=== PATIENT | female | born 1940 | race Caucasian/White ===

== ENCOUNTER 2017-10-10 00:26 | Inpatient (IN) | payer MEDICARE, OTHER, MEDICAID ==
[2017-10-10] MEDS: SODIUM CHLORIDE 0.9% 1L BAG IV* (00:49)
[2017-10-10 01:01] LABS: AADO2 Arterial 285.4 mmHg (7.0-24.0); Arterial Base Excess -1.7 mmol/L (-3.0-3); Arterial Blood Gas Oxygen Sat 97.9 mmHG (95.0-100.0); Arterial COHb 0.4 % (0.0-3.0); Arterial Fraction of Oxyhgb 97.1 % (93.0-99.0); Arterial HCO3 22.9 mmol/L (22.0-26.0); Arterial MetHb 0.4 % (0.0-1.5); Arterial Total Hemglobin 12.7 g/dl (12.0-18.0); Arterial pCO2 38.3 mmhg (35-45); MODE VENT - AC; Site Right Brachial
[2017-10-10 02:04] LABS: ADD MAN DIFF? NO
[2017-10-10 02:13] LABS: ABNORMAL IP MESSAGE 1; BASOPHIL # 0.1 10^3/ul (0.0-0.1); BASOPHILS % 0.6 % (0.0-2.0); EOSINOPHILS % 0.1 % (0.0-7.0); HEMATOCRIT 38.8 % (37.0-47.0); LYMPHOCYTES # 0.8 10^3/ul (0.8-2.9); MEAN CORPUSCULAR HEMOGLOBIN 30.4 pg (29.0-33.0); MEAN CORPUSCULAR HGB CONC 30.9 g/dl (32.0-37.0); MEAN CORPUSCULAR VOLUME 98.2 fl (82.0-101.0); MONOCYTE # 1.8 10^3/ul (0.3-0.9); MONOCYTES % 8.8 % (0.0-11.0); NEUTROPHIL # 17.1 10^3/ul (1.6-7.5); NEUTROPHILS % 85.5 % (39.0-77.0); PLATELET COUNT 232 10^3/UL (140-415); RED BLOOD COUNT 3.95 10^6/ul (4.20-5.40)
[2017-10-10] MEDS: CEFEPIME 2GM/50 ML (PMX) 50 ML IVPB (02:17)
[2017-10-10] MEDS: ACETAMINOPHEN 650 MG SUPP PR (02:17)
[2017-10-10 02:22] LABS: POSITIVE DIFF @See below
[2017-10-10 02:33] LABS: INR 1.17; PROTIME 15.1 Sec (11.9-14.9); PT RATIO 1.2
[2017-10-10 02:34] LABS: PARTIAL THROMBOPLASTIN TIME 34.5 Sec (25.0-35.0)
[2017-10-10 02:38] LABS: ALANINE AMINOTRANSFERASE 25 IU/L (13-69); ALBUMIN 3.7 g/dl (3.3-4.9); ALKALINE PHOSPHATASE 127 IU/L (42-121); ANION GAP 20 (8-16); ASPARTATE AMINO TRANSFERASE 21 IU/L (15-46); BILIRUBIN,INDIRECT 0.7 mg/dl (0-1.1); BILIRUBIN,TOTAL 0.7 mg/dl (0.2-1.3); BLOOD UREA NITROGEN 34 mg/dl (7-20); CALCIUM 9.4 mg/dl (8.4-10.2); CARBON DIOXIDE 23 mmol/L (21-31); CHLORIDE 99 mmol/L (97-110); CREATININE 2.52 mg/dl (0.44-1.00); GLUCOSE 243 mg/dl (70-220); POTASSIUM 3.3 mmol/L (3.5-5.1); SODIUM 139 mmol/L (135-144); TOTAL PROTEIN 7.4 g/dl (6.1-8.1)
[2017-10-10 02:49] LABS: TROPONIN-I 0.107 ng/ml (0.00-0.12)
[2017-10-10] MEDS: VANCOMYCIN 1 GM (PMX) 250 ML IVPB (03:13)
[2017-10-10 03:15] LABS: ADD UMIC YES; UR ASCORBIC ACID NEGATIVE (NEGATIVE); UR BACTERIA MANY /HPF (NONE SEEN); UR BILIRUBIN (Dip) 1+ mg/dL (NEGATIVE); UR BLOOD (Dip) NEGATIVE (NEGATIVE); UR CLARITY TURBID (CLEAR); UR COLOR AMBER (YELLOW); UR GLUCOSE (Dip) NEGATIVE (NEGATIVE); UR KETONES (Dip) NEGATIVE (NEGATIVE); UR LEUKOCYTE ESTERASE (Dip) 2+ Leu/ul (NEGATIVE); UR NITRITE (Dip) NEGATIVE (NEGATIVE); UR NONSQUAMOUS EPITHELIAL CELL 2 /HPF (NONE SEEN); UR RBC 0 /HPF (0-5); UR SPECIFIC GRAVITY (Dip) 1.036 (1.003-1.030); UR TOTAL PROTEIN (Dip) 2+ mg/dl (NEGATIVE); UR UROBILINOGEN (Dip) NEGATIVE (NEGATIVE); UR WBC > 182 /HPF (0-5)
[2017-10-10 03:28] LABS: LACTIC ACID 1.3 mmol/L (0.5-2.0)
[2017-10-10] MEDS ORDERED: ONDANSETRON 4 MG INJ IV (03:30)
[2017-10-10 06:21] LABS: LACTIC ACID 1.2 mmol/L (0.5-2.0)
[2017-10-10 08:40] LABS: LACTIC ACID 1.4 mmol/L (0.5-2.0)
[2017-10-10 08:58] LABS: MAGNESIUM 2.1 mg/dl (1.7-2.5)
[2017-10-10] MEDS ORDERED: VANCOMYCIN IV PER PHARMACY XX (09:30)
[2017-10-10] MEDS: POTASSIUM CHLORIDE 20 MEQ POWDER FOR ORAL SOLN GTB (10:30)
[2017-10-10] MEDS: VANCOMYCIN 500MG/NS (PMX) 100 ML IVPB (11:09)
[2017-10-10] MEDS: ACETAMINOPHEN 325 MG TAB PO (19:57)
[2017-10-11 06:34] LABS: ADD MAN DIFF? NO
[2017-10-11 06:47] LABS: WHITE BLOOD COUNT 9.8 10^3/ul (4.8-10.8)
[2017-10-11 06:47] LABS: BASOPHIL # 0.1 10^3/ul (0.0-0.1); BASOPHILS % 0.9 % (0.0-2.0); EOSINOPHILS # 0.4 10^3/ul (0.0-0.5); EOSINOPHILS % 3.7 % (0.0-7.0); HEMATOCRIT 36.6 % (37.0-47.0); HEMOGLOBIN 11.2 g/dl (12.0-16.0); LYMPHOCYTES # 0.7 10^3/ul (0.8-2.9); LYMPHOCYTES % 6.7 % (15.0-51.0); MEAN CORPUSCULAR HEMOGLOBIN 30.3 pg (29.0-33.0); MEAN CORPUSCULAR HGB CONC 30.6 g/dl (32.0-37.0); MEAN CORPUSCULAR VOLUME 98.9 fl (82.0-101.0); MEAN PLATELET VOLUME 12.2 fl (7.4-10.4); MONOCYTE # 1.2 10^3/ul (0.3-0.9); MONOCYTES % 12.4 % (0.0-11.0); NEUTROPHIL # 7.5 10^3/ul (1.6-7.5); NEUTROPHILS % 75.8 % (39.0-77.0); PLATELET COUNT 228 10^3/UL (140-415); RED CELL DISTRIBUTION WIDTH 16.5 % (11.5-14.5)
[2017-10-11 07:10] LABS: ANION GAP 17 (8-16); BLOOD UREA NITROGEN 43 mg/dl (7-20); CALCIUM 9.4 mg/dl (8.4-10.2); CARBON DIOXIDE 25 mmol/L (21-31); CHLORIDE 107 mmol/L (97-110); CREATININE 3.17 mg/dl (0.44-1.00); GLUCOSE 201 mg/dl (70-220); MAGNESIUM 2.2 mg/dl (1.7-2.5); POTASSIUM 3.9 mmol/L (3.5-5.1); SODIUM 145 mmol/L (135-144)
[2017-10-11] MEDS ORDERED: GLUCAGON 1 MG INJ IM (09:00)
[2017-10-11] MEDS ORDERED: DEXTROSE 50% 50 ML SYRINGE IV (09:00)
[2017-10-11] MEDS ORDERED: GLUCOSE GEL 15 GRAM TUBE BUCCAL (09:00)
[2017-10-11] MEDS ORDERED: FLUOCINONIDE 0.05% CR 30GM TUBE TOP (09:00)
[2017-10-11] MEDS ORDERED: GLUCOSE GEL 15 GRAM TUBE PO ×2 (09:00)
[2017-10-11] MEDS ORDERED: FLUOCINONIDE 0.05% 15 GM CR TOP (09:26)
[2017-10-11] MEDS: AMLODIPINE 10 MG TAB GTB (09:41)
[2017-10-11] MEDS: CEFEPIME 1GM/50 ML (PMX) 50 ML IVPB (09:50)
[2017-10-11] MEDS: ASCORBIC ACID 500 MG TAB GTB (09:50)
[2017-10-11] MEDS: predniSONE 10 MG TAB GTB ×2 (09:50→21:37)
[2017-10-11] MEDS: LEVETIRACETAM (100 MG/ML) 5ML CUP GTB ×2 (09:51→21:37)
[2017-10-11] MEDS: RISPERIDONE 0.25 MG TAB GTB (09:51)
[2017-10-11] MEDS: MINOXIDIL 2.5 MG TAB GTB (09:51)
[2017-10-11] MEDS: INSULIN ASPART [NOVOLOG] 3 ML PEN SC ×3 (13:30→21:47)
[2017-10-11] MEDS: MULTIVIT/CA CARB/B CMPLX/FA TAB PO (13:30)
[2017-10-11] MEDS: PERMETHRIN 5% 60 GM CR TOP (14:13)
[2017-10-11] MEDS: FLUOCINONIDE 0.05% 15 GM CR TOP ×2 (14:13→22:53)
[2017-10-11] MEDS: ALBUTEROL/IPRATROPIUM (NEB) 3 ML AMP NEB (15:07)
[2017-10-11] MEDS: IVERMECTIN 3 MG TAB GTB (22:53)
[2017-10-11] MEDS: INSULIN GLARGINE [LANtus] 3 ML PEN SC (22:56)
[2017-10-12] MEDS: ACCU-CHEK XX (02:06)
[2017-10-12] MEDS: LEVOTHYROXINE 125 MCG TAB GTB (06:03)
[2017-10-12 06:51] LABS: ADD MAN DIFF? NO
[2017-10-12 06:54] LABS: WHITE BLOOD COUNT 7.8 10^3/ul (4.8-10.8)
[2017-10-12 06:54] LABS: BASOPHIL # 0.1 10^3/ul (0.0-0.1); BASOPHILS % 0.9 % (0.0-2.0); EOSINOPHILS % 0.5 % (0.0-7.0); HEMATOCRIT 34.7 % (37.0-47.0); HEMOGLOBIN 10.6 g/dl (12.0-16.0); LYMPHOCYTES # 0.8 10^3/ul (0.8-2.9); LYMPHOCYTES % 10.6 % (15.0-51.0); MEAN CORPUSCULAR HEMOGLOBIN 30.4 pg (29.0-33.0); MEAN CORPUSCULAR HGB CONC 30.5 g/dl (32.0-37.0); MEAN CORPUSCULAR VOLUME 99.4 fl (82.0-101.0); MEAN PLATELET VOLUME 12.4 fl (7.4-10.4); MONOCYTE # 0.9 10^3/ul (0.3-0.9); NEUTROPHIL # 5.8 10^3/ul (1.6-7.5); NEUTROPHILS % 73.8 % (39.0-77.0); NUCLEATED RED BLOOD CELLS% 0.3 /100WBC (0.0-0.0); PLATELET COUNT 243 10^3/UL (140-415); RED BLOOD COUNT 3.49 10^6/ul (4.20-5.40); RED CELL DISTRIBUTION WIDTH 16.3 % (11.5-14.5)
[2017-10-12 07:25] LABS: VANCOMYCIN,RANDOM < 5.0 ug/ml
[2017-10-12 07:25] LABS: ANION GAP 18 (8-16); BLOOD UREA NITROGEN 82 mg/dl (7-20); CALCIUM 9.9 mg/dl (8.4-10.2); CARBON DIOXIDE 24 mmol/L (21-31); CHLORIDE 106 mmol/L (97-110); GLUCOSE 358 mg/dl (70-220); MAGNESIUM 2.4 mg/dl (1.7-2.5); PHOSPHORUS 1.6 mg/dl (2.5-4.9); POTASSIUM 4.2 mmol/L (3.5-5.1); SODIUM 144 mmol/L (135-144)
[2017-10-12] MEDS: LEVETIRACETAM (100 MG/ML) 5ML CUP GTB ×2 (08:19→21:00)
[2017-10-12] MEDS: predniSONE 10 MG TAB GTB ×2 (08:19→21:01)
[2017-10-12] MEDS: CEFEPIME 1GM/50 ML (PMX) 50 ML IVPB (08:19)
[2017-10-12] MEDS: MULTIVIT/CA CARB/B CMPLX/FA TAB PO (08:20)
[2017-10-12] MEDS: AMLODIPINE 10 MG TAB GTB (08:20)
[2017-10-12] MEDS: RISPERIDONE 0.25 MG TAB GTB (08:20)
[2017-10-12] MEDS: ASCORBIC ACID 500 MG TAB GTB (08:20)
[2017-10-12] MEDS: PERMETHRIN 5% 60 GM CR TOP (08:21)
[2017-10-12] MEDS: FLUOCINONIDE 0.05% 15 GM CR TOP ×2 (08:21→22:31)
[2017-10-12] MEDS: INSULIN ASPART [NOVOLOG] 3 ML PEN SC ×4 (08:35→21:11)
[2017-10-12] MEDS: MINOXIDIL 2.5 MG TAB GTB (09:29)
[2017-10-12] MEDS: INSULIN GLARGINE [LANtus] 3 ML PEN SC ×2 (11:30→20:20)
[2017-10-12] MEDS: VANCOMYCIN 1.25 GM in SOD CHLORIDE 0.9% 250 ML IVPB (11:44)
[2017-10-12] MEDS ORDERED: GENTAMICIN IV PER PHARMACY XX (19:00)
[2017-10-12] MEDS: MEROPENEM 500MG/50 ML (PMX) 50 ML IVPB (19:55)
[2017-10-12] MEDS ORDERED: INSULIN GLARGINE [LANtus] 3 ML PEN SC ×2 (20:00→21:00)
[2017-10-12] MEDS: GENTAMICIN 120 MG/NS (PMX) 100 ML IVPB (21:00)
[2017-10-12] MEDS ORDERED: MEROPENEM 1 GM/50ML(PMX) 50 ML IVPB (21:00)
[2017-10-12] MEDS: IVERMECTIN 3 MG TAB GTB (21:01)
[2017-10-13] MEDS: INSULIN ASPART [NOVOLOG] 3 ML PEN SC ×6 (01:05→21:00)
[2017-10-13] MEDS: ACCU-CHEK XX (02:14)
[2017-10-13] MEDS: LEVOTHYROXINE 125 MCG TAB GTB (06:16)
[2017-10-13 07:41] LABS: ADD MAN DIFF? NO
[2017-10-13 07:49] LABS: ABNORMAL IP MESSAGE 1; BASOPHIL # 0.1 10^3/ul (0.0-0.1); EOSINOPHILS # 0.2 10^3/ul (0.0-0.5); EOSINOPHILS % 1.9 % (0.0-7.0); HEMATOCRIT 33.9 % (37.0-47.0); HEMOGLOBIN 10.3 g/dl (12.0-16.0); LYMPHOCYTES # 1.2 10^3/ul (0.8-2.9); MEAN CORPUSCULAR HEMOGLOBIN 30.2 pg (29.0-33.0); MEAN CORPUSCULAR HGB CONC 30.4 g/dl (32.0-37.0); MEAN CORPUSCULAR VOLUME 99.4 fl (82.0-101.0); MEAN PLATELET VOLUME 12.3 fl (7.4-10.4); MONOCYTES % 11.2 % (0.0-11.0); NEUTROPHIL # 6.1 10^3/ul (1.6-7.5); NEUTROPHILS % 67.7 % (39.0-77.0); NUCLEATED RED BLOOD CELLS% 0.2 /100WBC (0.0-0.0); PLATELET COUNT 269 10^3/UL (140-415); RED BLOOD COUNT 3.41 10^6/ul (4.20-5.40); RED CELL DISTRIBUTION WIDTH 16.4 % (11.5-14.5)
[2017-10-13 07:59] LABS: POSITIVE DIFF @See below
[2017-10-13 08:23] LABS: ANION GAP 19 (8-16); CALCIUM 10.3 mg/dl (8.4-10.2); CARBON DIOXIDE 23 mmol/L (21-31); CHLORIDE 105 mmol/L (97-110); CREATININE 5.17 mg/dl (0.44-1.00); GLUCOSE 299 mg/dl (70-220); MAGNESIUM 2.5 mg/dl (1.7-2.5); PHOSPHORUS 0.9 mg/dl (2.5-4.9); SODIUM 143 mmol/L (135-144)
[2017-10-13 09:00] LABS: BLOOD UREA NITROGEN 118 mg/dl (7-20)
[2017-10-13] MEDS: LEVETIRACETAM (100 MG/ML) 5ML CUP GTB ×2 (10:23→21:33)
[2017-10-13] MEDS: MULTIVIT/CA CARB/B CMPLX/FA TAB PO (10:23)
[2017-10-13] MEDS: ASCORBIC ACID 500 MG TAB GTB (10:23)
[2017-10-13] MEDS: RISPERIDONE 0.25 MG TAB GTB (10:24)
[2017-10-13] MEDS: AMLODIPINE 10 MG TAB GTB (10:26)
[2017-10-13] MEDS: predniSONE 10 MG TAB GTB ×2 (10:26→21:34)
[2017-10-13] MEDS: FLUOCINONIDE 0.05% 15 GM CR TOP ×2 (11:14→21:00)
[2017-10-13] MEDS: MINOXIDIL 2.5 MG TAB GTB (11:22)
[2017-10-13] MEDS: RIFAMPIN 300 MG CAP PO (18:01)
[2017-10-13] MEDS ORDERED: GENTAMICIN 80 MG/NS (PMX) 50 ML IVPB (19:30)
[2017-10-13] MEDS ORDERED: GENTAMICIN 100 MG/50 ML NS IVPB (19:30)
[2017-10-13] MEDS: MEROPENEM 500MG/50 ML (PMX) 50 ML IVPB (21:33)
[2017-10-13] MEDS: IVERMECTIN 3 MG TAB GTB (21:34)
[2017-10-13] MEDS: INSULIN GLARGINE [LANtus] 3 ML PEN SC (22:03)
[2017-10-14] MEDS: INSULIN ASPART [NOVOLOG] 3 ML PEN SC ×6 (01:25→22:24)
[2017-10-14] MEDS: ACCU-CHEK XX (02:00)
[2017-10-14] MEDS: LEVOTHYROXINE 125 MCG TAB GTB (05:17)
[2017-10-14 06:22] LABS: WHITE BLOOD COUNT 8.9 10^3/ul (4.8-10.8)
[2017-10-14 06:22] LABS: ABNORMAL IP MESSAGE 1; HEMATOCRIT 34.9 % (37.0-47.0); MEAN CORPUSCULAR HEMOGLOBIN 30.5 pg (29.0-33.0); MEAN CORPUSCULAR HGB CONC 31.5 g/dl (32.0-37.0); MEAN CORPUSCULAR VOLUME 96.7 fl (82.0-101.0); MEAN PLATELET VOLUME 12.5 fl (7.4-10.4); PLATELET COUNT 258 10^3/UL (140-415); RED BLOOD COUNT 3.61 10^6/ul (4.20-5.40); RED CELL DISTRIBUTION WIDTH 16.5 % (11.5-14.5)
[2017-10-14 06:25] LABS: ADD MAN DIFF? YES; POSITIVE DIFF @See below
[2017-10-14 07:01] LABS: VANCOMYCIN,RANDOM < 5.0 ug/ml
[2017-10-14 07:04] LABS: ANION GAP 16 (8-16); BLOOD UREA NITROGEN 79 mg/dl (7-20); CALCIUM 9.4 mg/dl (8.4-10.2); CARBON DIOXIDE 26 mmol/L (21-31); CHLORIDE 102 mmol/L (97-110); CREATININE 3.72 mg/dl (0.44-1.00); GLUCOSE 324 mg/dl (70-220); MAGNESIUM 2.3 mg/dl (1.7-2.5); PHOSPHORUS 1.4 mg/dl (2.5-4.9); POTASSIUM 3.7 mmol/L (3.5-5.1); SODIUM 140 mmol/L (135-144)
[2017-10-14 08:00] LABS: ANISOCYTOSIS 1+ (0-0); BAND NEUTROPHILS #M 0.2 10^3/ul (0.0-0.6); BAND NEUTROPHILS % (M) 3 % (0-4); EOSINOPHILS % (M) 3 % (0-7); GIANT THROMBO% (M) 1 % (0-0); LYMPHOCYTES #M 0.8 10^3/ul (0.8-2.9); LYMPHOCYTES % (M) 10 % (15-51); METAMYELOCYTES #M 0.1 10^3/ul (0.0-0.0); METAMYELOCYTES %M 2 % (0-0); MONOCYTE #M 0.5 10^3/ul (0.3-0.9); MONOCYTES % (M) 6 % (0-11); MYELOCYTES % (M) 1 % (0-0); PLATELET ESTIMATE NORMAL; POLYCHROMASIA 3+ (0-0); REACTIVE LYMPHOCYTES #M 0.7 10^3/ul (0.0-0.0); REACTIVE LYMPHOCYTES% (M) 8 % (0-0); SEGMENTED NEUTROPHILS (M) % 67 % (39-77); SMUDGE%M 9 % (0-0)
[2017-10-14] MEDS: MULTIVIT/CA CARB/B CMPLX/FA TAB PO (10:19)
[2017-10-14] MEDS: LEVETIRACETAM (100 MG/ML) 5ML CUP GTB ×2 (10:19→21:55)
[2017-10-14] MEDS: predniSONE 2.5 MG TAB GTB ×2 (10:19→22:07)
[2017-10-14] MEDS: ASCORBIC ACID 500 MG TAB GTB (10:20)
[2017-10-14] MEDS: RISPERIDONE 0.25 MG TAB GTB (10:20)
[2017-10-14] MEDS: RIFAMPIN 300 MG CAP PO (10:20)
[2017-10-14] MEDS: MINOXIDIL 2.5 MG TAB GTB (10:23)
[2017-10-14] MEDS: AMLODIPINE 10 MG TAB GTB (10:23)
[2017-10-14] MEDS: FLUOCINONIDE 0.05% 15 GM CR TOP ×2 (10:30→21:56)
[2017-10-14] MEDS: NEUTRA-PHOS 250 MG PACKET PO ×2 (10:31→21:55)
[2017-10-14] MEDS: INSULIN GLARGINE [LANtus] 3 ML PEN SC ×2 (11:06→22:02)
[2017-10-14] MEDS: VANCOMYCIN 1.25 GM in SOD CHLORIDE 0.9% 250 ML IVPB (12:57)
[2017-10-14] MEDS: NYSTATIN 30 GM POWDER BTL TOP ×2 (17:04→21:56)
[2017-10-14] MEDS: BALSAM PERU/CASTOR OIL 60 GM TUBE TOP ×2 (17:05→23:42)
[2017-10-14] MEDS: MEROPENEM 500MG/50 ML (PMX) 50 ML IVPB (21:55)
[2017-10-14] MEDS: IVERMECTIN 3 MG TAB GTB (21:55)
[2017-10-15] MEDS: ACCU-CHEK XX (02:00)
[2017-10-15] MEDS: INSULIN ASPART [NOVOLOG] 3 ML PEN SC ×6 (02:39→21:00)
[2017-10-15] MEDS: LEVOTHYROXINE 125 MCG TAB GTB (07:22)
[2017-10-15 08:16] LABS: VANCOMYCIN,RANDOM 17.2 ug/ml
[2017-10-15] MEDS: MINOXIDIL 2.5 MG TAB GTB (08:40)
[2017-10-15] MEDS: LEVETIRACETAM (100 MG/ML) 5ML CUP GTB ×2 (08:40→21:42)
[2017-10-15] MEDS: ASCORBIC ACID 500 MG TAB GTB (08:40)
[2017-10-15] MEDS: RISPERIDONE 0.25 MG TAB GTB (08:41)
[2017-10-15] MEDS: predniSONE 2.5 MG TAB GTB ×2 (08:41→21:00)
[2017-10-15] MEDS: RIFAMPIN 300 MG CAP PO (08:41)
[2017-10-15] MEDS: NEUTRA-PHOS 250 MG PACKET PO ×2 (08:41→21:42)
[2017-10-15] MEDS: MULTIVIT/CA CARB/B CMPLX/FA TAB PO (08:41)
[2017-10-15] MEDS: AMLODIPINE 10 MG TAB GTB (08:42)
[2017-10-15] MEDS: INSULIN GLARGINE [LANtus] 3 ML PEN SC ×2 (08:53→20:00)
[2017-10-15] MEDS: BALSAM PERU/CASTOR OIL 60 GM TUBE TOP ×2 (10:10→21:43)
[2017-10-15] MEDS: NYSTATIN 30 GM POWDER BTL TOP ×2 (10:11→21:43)
[2017-10-15] MEDS: FLUOCINONIDE 0.05% 15 GM CR TOP ×2 (10:11→21:45)
[2017-10-15] MEDS: MEROPENEM 500MG/50 ML (PMX) 50 ML IVPB (18:26)
[2017-10-15] MEDS: VANCOMYCIN 1 GM in NS 250 ML IVPB (21:42)
[2017-10-16] MEDS: INSULIN ASPART [NOVOLOG] 3 ML PEN SC ×6 (01:00→21:00)
[2017-10-16] MEDS: ACCU-CHEK XX (02:00)
[2017-10-16] MEDS: LEVOTHYROXINE 125 MCG TAB GTB (06:37)
[2017-10-16 08:24] LABS: ADD MAN DIFF? NO
[2017-10-16 08:35] LABS: BASOPHIL # 0.1 10^3/ul (0.0-0.1); BASOPHILS % 0.8 % (0.0-2.0); EOSINOPHILS # 0.9 10^3/ul (0.0-0.5); EOSINOPHILS % 9.2 % (0.0-7.0); HEMATOCRIT 35.8 % (37.0-47.0); HEMOGLOBIN 11.2 g/dl (12.0-16.0); LYMPHOCYTES # 1.7 10^3/ul (0.8-2.9); LYMPHOCYTES % 17.1 % (15.0-51.0); MEAN CORPUSCULAR HEMOGLOBIN 30.2 pg (29.0-33.0); MEAN CORPUSCULAR HGB CONC 31.3 g/dl (32.0-37.0); MEAN CORPUSCULAR VOLUME 96.5 fl (82.0-101.0); MEAN PLATELET VOLUME 11.8 fl (7.4-10.4); MONOCYTES % 9.5 % (0.0-11.0); NEUTROPHILS % 59.9 % (39.0-77.0); PLATELET COUNT 267 10^3/UL (140-415); RED BLOOD COUNT 3.71 10^6/ul (4.20-5.40)
[2017-10-16 08:52] LABS: ANION GAP 17 (8-16); BLOOD UREA NITROGEN 87 mg/dl (7-20); CALCIUM 9.4 mg/dl (8.4-10.2); CARBON DIOXIDE 29 mmol/L (21-31); CHLORIDE 100 mmol/L (97-110); CREATININE 4.03 mg/dl (0.44-1.00); GLUCOSE 100 mg/dl (70-220); MAGNESIUM 2.3 mg/dl (1.7-2.5); PHOSPHORUS 4.5 mg/dl (2.5-4.9); POTASSIUM 4.4 mmol/L (3.5-5.1); SODIUM 142 mmol/L (135-144)
[2017-10-16] MEDS: MULTIVIT/CA CARB/B CMPLX/FA TAB PO (09:18)
[2017-10-16] MEDS: LEVETIRACETAM (100 MG/ML) 5ML CUP GTB ×2 (09:18→21:05)
[2017-10-16] MEDS: ASCORBIC ACID 500 MG TAB GTB (09:18)
[2017-10-16] MEDS: RIFAMPIN 300 MG CAP PO (09:18)
[2017-10-16] MEDS: RISPERIDONE 0.25 MG TAB GTB (09:18)
[2017-10-16] MEDS: NEUTRA-PHOS 250 MG PACKET PO ×2 (09:18→21:05)
[2017-10-16] MEDS: BALSAM PERU/CASTOR OIL 60 GM TUBE TOP ×2 (09:19→21:07)
[2017-10-16] MEDS: MINOXIDIL 2.5 MG TAB GTB (09:19)
[2017-10-16] MEDS: AMLODIPINE 10 MG TAB GTB (09:19)
[2017-10-16] MEDS: NYSTATIN 30 GM POWDER BTL TOP ×2 (09:21→21:06)
[2017-10-16] MEDS: INSULIN GLARGINE [LANtus] 3 ML PEN SC (09:25)
[2017-10-16] MEDS: FLUOCINONIDE 0.05% 15 GM CR TOP ×2 (11:10→21:06)
[2017-10-16] MEDS: predniSONE 2.5 MG TAB GTB ×2 (11:10→21:06)
[2017-10-16] MEDS: MEROPENEM 500MG/50 ML (PMX) 50 ML IVPB (17:54)
[2017-10-17] MEDS: INSULIN ASPART [NOVOLOG] 3 ML PEN SC ×4 (01:00→17:35)
[2017-10-17] MEDS: ACCU-CHEK XX (02:00)
[2017-10-17] MEDS: LEVOTHYROXINE 125 MCG TAB GTB (06:17)
[2017-10-17] MEDS: INSULIN GLARGINE [LANtus] 3 ML PEN SC ×2 (07:55→20:03)
[2017-10-17] MEDS: RISPERIDONE 0.25 MG TAB GTB (09:30)
[2017-10-17] MEDS: NEUTRA-PHOS 250 MG PACKET PO ×2 (09:30→20:04)
[2017-10-17] MEDS: LEVETIRACETAM (100 MG/ML) 5ML CUP GTB ×2 (09:30→20:03)
[2017-10-17] MEDS: RIFAMPIN 300 MG CAP PO (09:30)
[2017-10-17] MEDS: MULTIVIT/CA CARB/B CMPLX/FA TAB PO (09:31)
[2017-10-17] MEDS: predniSONE 2.5 MG TAB GTB ×2 (09:31→21:03)
[2017-10-17] MEDS: MINOXIDIL 2.5 MG TAB GTB (09:31)
[2017-10-17] MEDS: ASCORBIC ACID 500 MG TAB GTB (09:31)
[2017-10-17] MEDS: AMLODIPINE 10 MG TAB GTB (09:31)
[2017-10-17] MEDS: HEPARIN 5,000 UNIT/0.5 ML VIAL SC ×2 (09:32→20:05)
[2017-10-17] MEDS: BALSAM PERU/CASTOR OIL 60 GM TUBE TOP ×2 (09:34→20:06)
[2017-10-17] MEDS: FLUOCINONIDE 0.05% 15 GM CR TOP ×2 (09:35→20:05)
[2017-10-17] MEDS: ALBUMIN HUMAN 25% 100 ML IV (10:22)
[2017-10-17] MEDS: NYSTATIN 30 GM POWDER BTL TOP ×2 (11:40→20:06)
[2017-10-17] MEDS: HEPARIN 1000 UNITS/ML 10 ML INJ CATHETER (11:56)
[2017-10-17] MEDS: MEROPENEM 500MG/50 ML (PMX) 50 ML IVPB (19:57)
[2017-10-18] MEDS: ACCU-CHEK XX (02:00)
[2017-10-18] MEDS: ACETAMINOPHEN 325 MG TAB GTB (04:18)
[2017-10-18] MEDS: INSULIN ASPART [NOVOLOG] 3 ML PEN SC ×4 (06:00→17:35)
[2017-10-18] MEDS: LEVOTHYROXINE 125 MCG TAB GTB (06:36)
[2017-10-18 06:43] LABS: ADD MAN DIFF? NO
[2017-10-18 06:50] LABS: WHITE BLOOD COUNT 9.6 10^3/ul (4.8-10.8)
[2017-10-18 06:50] LABS: BASOPHIL # 0.1 10^3/ul (0.0-0.1); BASOPHILS % 0.9 % (0.0-2.0); EOSINOPHILS # 0.8 10^3/ul (0.0-0.5); EOSINOPHILS % 8.2 % (0.0-7.0); HEMATOCRIT 37.6 % (37.0-47.0); LYMPHOCYTES # 1.8 10^3/ul (0.8-2.9); LYMPHOCYTES % 18.7 % (15.0-51.0); MEAN CORPUSCULAR HEMOGLOBIN 30.8 pg (29.0-33.0); MEAN CORPUSCULAR HGB CONC 31.9 g/dl (32.0-37.0); MEAN CORPUSCULAR VOLUME 96.4 fl (82.0-101.0); MONOCYTE # 0.8 10^3/ul (0.3-0.9); MONOCYTES % 8.1 % (0.0-11.0); NEUTROPHILS % 62.1 % (39.0-77.0); PLATELET COUNT 261 10^3/UL (140-415); RED CELL DISTRIBUTION WIDTH 17.1 % (11.5-14.5)
[2017-10-18 07:17] LABS: VANCOMYCIN,RANDOM 19.2 ug/ml
[2017-10-18 07:24] LABS: ANION GAP 21 (8-16); BLOOD UREA NITROGEN 67 mg/dl (7-20); CALCIUM 9.9 mg/dl (8.4-10.2); CARBON DIOXIDE 28 mmol/L (21-31); CHLORIDE 99 mmol/L (97-110); CREATININE 4.14 mg/dl (0.44-1.00); GLUCOSE 94 mg/dl (70-220); MAGNESIUM 2.5 mg/dl (1.7-2.5); PHOSPHORUS 7.9 mg/dl (2.5-4.9); SODIUM 143 mmol/L (135-144)
[2017-10-18 07:28] LABS: POTASSIUM 5.1 mmol/L (3.5-5.1)
[2017-10-18] MEDS: INSULIN GLARGINE [LANtus] 3 ML PEN SC ×2 (08:03→20:09)
[2017-10-18] MEDS: RISPERIDONE 0.25 MG TAB GTB (08:24)
[2017-10-18] MEDS: predniSONE 2.5 MG TAB GTB ×2 (08:24→20:04)
[2017-10-18] MEDS: RIFAMPIN 300 MG CAP PO (08:24)
[2017-10-18] MEDS: LEVETIRACETAM (100 MG/ML) 5ML CUP GTB ×2 (08:24→20:04)
[2017-10-18] MEDS: MULTIVIT/CA CARB/B CMPLX/FA TAB PO (08:24)
[2017-10-18] MEDS: MINOXIDIL 2.5 MG TAB GTB (08:25)
[2017-10-18] MEDS: AMLODIPINE 10 MG TAB GTB (08:25)
[2017-10-18] MEDS: ASCORBIC ACID 500 MG TAB GTB (08:25)
[2017-10-18] MEDS: HEPARIN 5,000 UNIT/0.5 ML VIAL SC ×2 (08:27→20:10)
[2017-10-18] MEDS: NEUTRA-PHOS 250 MG PACKET PO ×2 (08:28→20:04)
[2017-10-18] MEDS: NYSTATIN 30 GM POWDER BTL TOP ×2 (08:29→20:53)
[2017-10-18] MEDS: BALSAM PERU/CASTOR OIL 60 GM TUBE TOP ×2 (08:29→20:53)
[2017-10-18] MEDS: FLUOCINONIDE 0.05% 15 GM CR TOP ×2 (08:29→20:53)
[2017-10-18] MEDS: MEROPENEM 500MG/50 ML (PMX) 50 ML IVPB (19:59)
[2017-10-18] MEDS: VANCOMYCIN 750 MG in DEXTROSE 5% 150 ML IVPB (20:53)
[2017-10-19] MEDS: ACCU-CHEK XX (02:00)
[2017-10-19] MEDS: LEVOTHYROXINE 125 MCG TAB GTB (05:52)
[2017-10-19] MEDS: INSULIN ASPART [NOVOLOG] 3 ML PEN SC ×4 (05:52→17:28)
[2017-10-19] MEDS: INSULIN GLARGINE [LANtus] 3 ML PEN SC ×2 (07:47→20:28)
[2017-10-19] MEDS: RIFAMPIN 300 MG CAP PO (09:43)
[2017-10-19] MEDS: LEVETIRACETAM (100 MG/ML) 5ML CUP GTB ×2 (09:43→20:05)
[2017-10-19] MEDS: MULTIVIT/CA CARB/B CMPLX/FA TAB PO (09:43)
[2017-10-19] MEDS: NEUTRA-PHOS 250 MG PACKET PO ×2 (09:43→20:46)
[2017-10-19] MEDS: AMLODIPINE 10 MG TAB GTB (09:44)
[2017-10-19] MEDS: ASCORBIC ACID 500 MG TAB GTB (09:44)
[2017-10-19] MEDS: predniSONE 2.5 MG TAB GTB ×2 (09:44→20:45)
[2017-10-19] MEDS: MINOXIDIL 2.5 MG TAB GTB (09:44)
[2017-10-19] MEDS: RISPERIDONE 0.25 MG TAB GTB (09:44)
[2017-10-19] MEDS: HEPARIN 5,000 UNIT/0.5 ML VIAL SC ×2 (09:45→20:27)
[2017-10-19] MEDS: BALSAM PERU/CASTOR OIL 60 GM TUBE TOP ×2 (09:46→20:07)
[2017-10-19] MEDS: NYSTATIN 30 GM POWDER BTL TOP ×2 (09:46→20:07)
[2017-10-19] MEDS: FLUOCINONIDE 0.05% 15 GM CR TOP ×2 (09:47→20:08)
[2017-10-19] MEDS: ACETAMINOPHEN 325 MG TAB GTB (14:15)
[2017-10-19] MEDS: VANCOMYCIN HCL 250 MG/5ML POSYG PO ×2 (15:40→17:26)
[2017-10-20] MEDS: VANCOMYCIN HCL 250 MG/5ML POSYG PO ×4 (01:00→17:59)
[2017-10-20] MEDS: ACCU-CHEK XX (02:00)
[2017-10-20] MEDS: INSULIN ASPART [NOVOLOG] 3 ML PEN SC ×4 (06:00→18:00)
[2017-10-20] MEDS: LEVOTHYROXINE 125 MCG TAB GTB (06:19)
[2017-10-20] MEDS: INSULIN GLARGINE [LANtus] 3 ML PEN SC ×2 (08:44→22:26)
[2017-10-20] MEDS: MULTIVIT/CA CARB/B CMPLX/FA TAB PO (10:28)
[2017-10-20] MEDS: RIFAMPIN 300 MG CAP PO (10:28)
[2017-10-20] MEDS: NEUTRA-PHOS 250 MG PACKET PO ×2 (10:28→21:44)
[2017-10-20] MEDS: RISPERIDONE 0.25 MG TAB GTB (10:28)
[2017-10-20] MEDS: predniSONE 2.5 MG TAB GTB ×2 (10:28→21:44)
[2017-10-20] MEDS: MINOXIDIL 2.5 MG TAB GTB (10:29)
[2017-10-20] MEDS: ASCORBIC ACID 500 MG TAB GTB (10:29)
[2017-10-20] MEDS: AMLODIPINE 10 MG TAB GTB (10:29)
[2017-10-20] MEDS: BALSAM PERU/CASTOR OIL 60 GM TUBE TOP ×2 (10:30→21:45)
[2017-10-20] MEDS: NYSTATIN 30 GM POWDER BTL TOP ×2 (10:30→21:44)
[2017-10-20] MEDS: LEVETIRACETAM (100 MG/ML) 5ML CUP GTB ×2 (10:30→21:44)
[2017-10-20] MEDS: FLUOCINONIDE 0.05% 15 GM CR TOP ×2 (10:31→21:45)
[2017-10-20] MEDS: HEPARIN 5,000 UNIT/0.5 ML VIAL SC ×2 (10:35→22:26)
[2017-10-21] MEDS: VANCOMYCIN HCL 250 MG/5ML POSYG PO ×4 (00:18→18:38)
[2017-10-21] MEDS: ACCU-CHEK XX (01:42)
[2017-10-21] MEDS: INSULIN ASPART [NOVOLOG] 3 ML PEN SC ×4 (06:00→18:00)
[2017-10-21] MEDS: LEVOTHYROXINE 125 MCG TAB GTB (06:10)
[2017-10-21] MEDS: INSULIN GLARGINE [LANtus] 3 ML PEN SC ×2 (08:23→22:20)
[2017-10-21 08:33] LABS: ADD MAN DIFF? NO
[2017-10-21 08:53] LABS: BASOPHIL # 0.1 10^3/ul (0.0-0.1); BASOPHILS % 0.8 % (0.0-2.0); EOSINOPHILS # 0.8 10^3/ul (0.0-0.5); HEMATOCRIT 36.7 % (37.0-47.0); HEMOGLOBIN 11.8 g/dl (12.0-16.0); LYMPHOCYTES # 1.8 10^3/ul (0.8-2.9); LYMPHOCYTES % 17.3 % (15.0-51.0); MEAN CORPUSCULAR HEMOGLOBIN 31.1 pg (29.0-33.0); MEAN CORPUSCULAR HGB CONC 32.2 g/dl (32.0-37.0); MEAN CORPUSCULAR VOLUME 96.8 fl (82.0-101.0); MEAN PLATELET VOLUME 12.5 fl (7.4-10.4); MONOCYTE # 0.8 10^3/ul (0.3-0.9); MONOCYTES % 8.1 % (0.0-11.0); NEUTROPHIL # 6.7 10^3/ul (1.6-7.5); NEUTROPHILS % 65.2 % (39.0-77.0); PLATELET COUNT 236 10^3/UL (140-415); RED BLOOD COUNT 3.79 10^6/ul (4.20-5.40); RED CELL DISTRIBUTION WIDTH 16.8 % (11.5-14.5)
[2017-10-21 08:53] LABS: WHITE BLOOD COUNT 10.2 10^3/ul (4.8-10.8)
[2017-10-21] MEDS: LEVETIRACETAM (100 MG/ML) 5ML CUP GTB ×2 (09:51→22:16)
[2017-10-21] MEDS: MULTIVIT/CA CARB/B CMPLX/FA TAB PO (09:51)
[2017-10-21] MEDS: NEUTRA-PHOS 250 MG PACKET PO ×2 (09:52→22:16)
[2017-10-21] MEDS: AMLODIPINE 10 MG TAB GTB (09:52)
[2017-10-21] MEDS: ASCORBIC ACID 500 MG TAB GTB (09:52)
[2017-10-21] MEDS: predniSONE 2.5 MG TAB GTB ×2 (09:53→22:17)
[2017-10-21] MEDS: RIFAMPIN 300 MG CAP PO (09:53)
[2017-10-21] MEDS: MINOXIDIL 2.5 MG TAB GTB (09:53)
[2017-10-21] MEDS: BALSAM PERU/CASTOR OIL 60 GM TUBE TOP ×2 (09:53→22:18)
[2017-10-21] MEDS: RISPERIDONE 0.25 MG TAB GTB (09:53)
[2017-10-21] MEDS: FLUOCINONIDE 0.05% 15 GM CR TOP ×2 (09:54→22:19)
[2017-10-21] MEDS: NYSTATIN 30 GM POWDER BTL TOP ×2 (09:54→22:19)
[2017-10-21] MEDS: HEPARIN 5,000 UNIT/0.5 ML VIAL SC ×2 (10:03→22:21)
[2017-10-21 10:39] LABS: ANION GAP 23 (8-16); BLOOD UREA NITROGEN 75 mg/dl (7-20); CALCIUM 9.4 mg/dl (8.4-10.2); CARBON DIOXIDE 27 mmol/L (21-31); CHLORIDE 93 mmol/L (97-110); CREATININE 4.92 mg/dl (0.44-1.00); GLUCOSE 110 mg/dl (70-220); MAGNESIUM 2.5 mg/dl (1.7-2.5); POTASSIUM 5.7 mmol/L (3.5-5.1); SODIUM 137 mmol/L (135-144)
[2017-10-21 20:38] LABS: VANCOMYCIN,TROUGH 20.4 ug/ml (10.0-20.0)
[2017-10-22] MEDS: VANCOMYCIN HCL 250 MG/5ML POSYG PO ×4 (00:32→17:33)
[2017-10-22] MEDS: ACCU-CHEK XX (02:00)
[2017-10-22] MEDS: INSULIN ASPART [NOVOLOG] 3 ML PEN SC ×4 (05:59→17:35)
[2017-10-22] MEDS: LEVETIRACETAM (100 MG/ML) 5ML CUP GTB ×2 (08:43→21:22)
[2017-10-22] MEDS: ASCORBIC ACID 500 MG TAB GTB (08:43)
[2017-10-22] MEDS: NEUTRA-PHOS 250 MG PACKET PO ×2 (08:44→21:22)
[2017-10-22] MEDS: RIFAMPIN 300 MG CAP PO (08:44)
[2017-10-22] MEDS: NYSTATIN 30 GM POWDER BTL TOP ×2 (08:44→21:24)
[2017-10-22] MEDS: RISPERIDONE 0.25 MG TAB GTB (08:44)
[2017-10-22] MEDS: MULTIVIT/CA CARB/B CMPLX/FA TAB PO (08:44)
[2017-10-22] MEDS: LEVOTHYROXINE 125 MCG TAB GTB (08:45)
[2017-10-22] MEDS: predniSONE 2.5 MG TAB GTB ×2 (08:45→21:22)
[2017-10-22] MEDS: HEPARIN 5,000 UNIT/0.5 ML VIAL SC ×2 (08:49→21:26)
[2017-10-22] MEDS: INSULIN GLARGINE [LANtus] 3 ML PEN SC ×2 (08:51→21:27)
[2017-10-22] MEDS: FLUOCINONIDE 0.05% 15 GM CR TOP ×2 (08:52→21:24)
[2017-10-22] MEDS: BALSAM PERU/CASTOR OIL 60 GM TUBE TOP ×2 (08:52→21:25)
[2017-10-22] MEDS: AMLODIPINE 10 MG TAB GTB (13:11)
[2017-10-22] MEDS: MINOXIDIL 2.5 MG TAB GTB (13:11)
[2017-10-22] MEDS: INFLUENZA VIRUS VACCINE 0.5 ML (DISPENSING) IM* (15:53)
[2017-10-22] MEDS ORDERED: VANCOMYCIN 750 MG in DEXTROSE 5% 150 ML IVPB (21:00)
[2017-10-22] MEDS: VANCOMYCIN 1 GM 250 ML IVPB (21:23)
[2017-10-23] MEDS: VANCOMYCIN HCL 250 MG/5ML POSYG PO ×4 (00:12→18:28)
[2017-10-23] MEDS: ACCU-CHEK XX (00:16)
[2017-10-23] MEDS: INSULIN ASPART [NOVOLOG] 3 ML PEN SC ×4 (05:35→18:00)
[2017-10-23] MEDS: LEVOTHYROXINE 125 MCG TAB GTB (05:36)
[2017-10-23] MEDS: INSULIN GLARGINE [LANtus] 3 ML PEN SC ×2 (08:07→20:53)
[2017-10-23] MEDS: LEVETIRACETAM (100 MG/ML) 5ML CUP GTB ×2 (08:45→20:49)
[2017-10-23] MEDS: predniSONE 2.5 MG TAB GTB ×2 (08:46→20:49)
[2017-10-23] MEDS: NEUTRA-PHOS 250 MG PACKET PO ×2 (08:46→20:49)
[2017-10-23] MEDS: MULTIVIT/CA CARB/B CMPLX/FA TAB PO (08:47)
[2017-10-23] MEDS: ASCORBIC ACID 500 MG TAB GTB (08:47)
[2017-10-23] MEDS: RISPERIDONE 0.25 MG TAB GTB (08:47)
[2017-10-23] MEDS: AMLODIPINE 10 MG TAB GTB (08:48)
[2017-10-23] MEDS: MINOXIDIL 2.5 MG TAB GTB (08:48)
[2017-10-23] MEDS: RIFAMPIN 300 MG CAP PO (08:48)
[2017-10-23] MEDS: BALSAM PERU/CASTOR OIL 60 GM TUBE TOP ×2 (08:49→20:50)
[2017-10-23] MEDS: FLUOCINONIDE 0.05% 15 GM CR TOP ×2 (08:50→20:50)
[2017-10-23] MEDS: NYSTATIN 30 GM POWDER BTL TOP ×2 (08:51→20:50)
[2017-10-23] MEDS: HEPARIN 5,000 UNIT/0.5 ML VIAL SC ×2 (08:58→20:52)
[2017-10-23 09:00] LABS: ADD MAN DIFF? NO
[2017-10-23 09:18] LABS: WHITE BLOOD COUNT 11.5 10^3/ul (4.8-10.8)
[2017-10-23 09:18] LABS: BASOPHIL # 0.1 10^3/ul (0.0-0.1); BASOPHILS % 0.8 % (0.0-2.0); EOSINOPHILS # 0.5 10^3/ul (0.0-0.5); EOSINOPHILS % 4.4 % (0.0-7.0); HEMATOCRIT 39.6 % (37.0-47.0); HEMOGLOBIN 12.2 g/dl (12.0-16.0); LYMPHOCYTES # 1.8 10^3/ul (0.8-2.9); LYMPHOCYTES % 15.2 % (15.0-51.0); MEAN CORPUSCULAR HEMOGLOBIN 30.5 pg (29.0-33.0); MEAN CORPUSCULAR HGB CONC 30.8 g/dl (32.0-37.0); MEAN PLATELET VOLUME 12.2 fl (7.4-10.4); MONOCYTE # 1.2 10^3/ul (0.3-0.9); MONOCYTES % 10.1 % (0.0-11.0); NEUTROPHIL # 7.9 10^3/ul (1.6-7.5); NEUTROPHILS % 69.2 % (39.0-77.0); PLATELET COUNT 229 10^3/UL (140-415); RED CELL DISTRIBUTION WIDTH 16.3 % (11.5-14.5)
[2017-10-23 09:36] LABS: ANION GAP 23 (8-16); BLOOD UREA NITROGEN 70 mg/dl (7-20); CALCIUM 9.9 mg/dl (8.4-10.2); CARBON DIOXIDE 29 mmol/L (21-31); CHLORIDE 98 mmol/L (97-110); CREATININE 4.88 mg/dl (0.44-1.00); GLUCOSE 93 mg/dl (70-220); MAGNESIUM 2.7 mg/dl (1.7-2.5); PHOSPHORUS 12.4 mg/dl (2.5-4.9); POTASSIUM 5.4 mmol/L (3.5-5.1); SODIUM 145 mmol/L (135-144)
[2017-10-24] MEDS: VANCOMYCIN HCL 250 MG/5ML POSYG PO ×2 (00:36→06:28)
[2017-10-24] MEDS: ACCU-CHEK XX (02:28)
[2017-10-24] MEDS: INSULIN ASPART [NOVOLOG] 3 ML PEN SC ×5 (06:00→23:56)
[2017-10-24] MEDS: LEVOTHYROXINE 125 MCG TAB GTB (06:28)
[2017-10-24] MEDS: LEVETIRACETAM (100 MG/ML) 5ML CUP GTB ×2 (09:02→21:11)
[2017-10-24] MEDS: INSULIN GLARGINE [LANtus] 3 ML PEN SC ×2 (09:03→21:14)
[2017-10-24] MEDS: HEPARIN 5,000 UNIT/0.5 ML VIAL SC ×2 (09:03→21:13)
[2017-10-24] MEDS: ASCORBIC ACID 500 MG TAB GTB (09:04)
[2017-10-24] MEDS: RISPERIDONE 0.25 MG TAB GTB (09:04)
[2017-10-24] MEDS: predniSONE 2.5 MG TAB GTB ×2 (09:04→21:11)
[2017-10-24] MEDS: AMLODIPINE 10 MG TAB GTB (09:05)
[2017-10-24] MEDS: NYSTATIN 30 GM POWDER BTL TOP ×2 (09:06→21:15)
[2017-10-24] MEDS: BALSAM PERU/CASTOR OIL 60 GM TUBE TOP ×2 (09:06→21:15)
[2017-10-24] MEDS: FLUOCINONIDE 0.05% 15 GM CR TOP ×2 (09:07→21:15)
[2017-10-24] MEDS: NEUTRA-PHOS 250 MG PACKET GTB ×2 (09:45→21:11)
[2017-10-24] MEDS: RIFAMPIN 300 MG CAP GTB (09:46)
[2017-10-24] MEDS: MULTIVIT/CA CARB/B CMPLX/FA TAB GTB (09:46)
[2017-10-24] MEDS: MINOXIDIL 2.5 MG TAB GTB (09:46)
[2017-10-24] MEDS: VANCOMYCIN HCL 250 MG/5ML POSYG GTB ×3 (12:05→23:53)
[2017-10-25] MEDS: ACCU-CHEK XX (02:00)
[2017-10-25] MEDS: INSULIN ASPART [NOVOLOG] 3 ML PEN SC ×3 (05:07→17:38)
[2017-10-25] MEDS: VANCOMYCIN HCL 250 MG/5ML POSYG GTB ×3 (05:07→17:57)
[2017-10-25] MEDS: LEVETIRACETAM (100 MG/ML) 5ML CUP GTB ×2 (08:49→21:32)
[2017-10-25] MEDS: MULTIVIT/CA CARB/B CMPLX/FA TAB GTB (08:49)
[2017-10-25] MEDS: RISPERIDONE 0.25 MG TAB GTB (08:49)
[2017-10-25] MEDS: RIFAMPIN 300 MG CAP GTB (08:49)
[2017-10-25] MEDS: AMLODIPINE 10 MG TAB GTB (08:50)
[2017-10-25] MEDS: MINOXIDIL 2.5 MG TAB GTB (08:50)
[2017-10-25] MEDS: ASCORBIC ACID 500 MG TAB GTB (08:50)
[2017-10-25] MEDS: LEVOTHYROXINE 125 MCG TAB GTB (08:50)
[2017-10-25] MEDS: predniSONE 2.5 MG TAB GTB ×2 (08:50→21:33)
[2017-10-25] MEDS: HEPARIN 5,000 UNIT/0.5 ML VIAL SC ×2 (09:05→22:07)
[2017-10-25] MEDS: INSULIN GLARGINE [LANtus] 3 ML PEN SC ×2 (09:06→22:07)
[2017-10-25] MEDS: FLUOCINONIDE 0.05% 15 GM CR TOP ×2 (09:16→21:35)
[2017-10-25] MEDS: NYSTATIN 30 GM POWDER BTL TOP ×2 (09:16→21:35)
[2017-10-25] MEDS: BALSAM PERU/CASTOR OIL 60 GM TUBE TOP ×2 (09:16→21:34)
[2017-10-25] MEDS: NEUTRA-PHOS 250 MG PACKET GTB ×2 (09:19→21:33)
[2017-10-26] MEDS: VANCOMYCIN HCL 250 MG/5ML POSYG GTB ×5 (01:15→23:57)
[2017-10-26] MEDS: ACCU-CHEK XX (02:00)
[2017-10-26] MEDS: INSULIN ASPART [NOVOLOG] 3 ML PEN SC ×5 (06:00→23:59)
[2017-10-26] MEDS: LEVOTHYROXINE 125 MCG TAB GTB (06:06)
[2017-10-26] MEDS: AMLODIPINE 10 MG TAB GTB (09:00)
[2017-10-26 09:27] LABS: ADD MAN DIFF? NO
[2017-10-26 09:30] LABS: BASOPHIL # 0.1 10^3/ul (0.0-0.1); BASOPHILS % 1.1 % (0.0-2.0); EOSINOPHILS # 0.4 10^3/ul (0.0-0.5); EOSINOPHILS % 4.7 % (0.0-7.0); HEMATOCRIT 38.3 % (37.0-47.0); HEMOGLOBIN 12.1 g/dl (12.0-16.0); LYMPHOCYTES # 1.9 10^3/ul (0.8-2.9); LYMPHOCYTES % 20.9 % (15.0-51.0); MEAN CORPUSCULAR HEMOGLOBIN 30.9 pg (29.0-33.0); MEAN CORPUSCULAR HGB CONC 31.6 g/dl (32.0-37.0); MEAN PLATELET VOLUME 12.8 fl (7.4-10.4); MONOCYTE # 1.1 10^3/ul (0.3-0.9); MONOCYTES % 12.2 % (0.0-11.0); NEUTROPHIL # 5.7 10^3/ul (1.6-7.5); NEUTROPHILS % 60.8 % (39.0-77.0); PLATELET COUNT 231 10^3/UL (140-415); RED BLOOD COUNT 3.91 10^6/ul (4.20-5.40); RED CELL DISTRIBUTION WIDTH 15.7 % (11.5-14.5)
[2017-10-26 09:30] LABS: WHITE BLOOD COUNT 9.3 10^3/ul (4.8-10.8)
[2017-10-26] MEDS: MULTIVIT/CA CARB/B CMPLX/FA TAB GTB (09:50)
[2017-10-26] MEDS: LEVETIRACETAM (100 MG/ML) 5ML CUP GTB ×2 (09:50→21:59)
[2017-10-26] MEDS: NEUTRA-PHOS 250 MG PACKET GTB ×2 (09:50→22:00)
[2017-10-26] MEDS: RIFAMPIN 300 MG CAP GTB (09:51)
[2017-10-26] MEDS: RISPERIDONE 0.25 MG TAB GTB (09:52)
[2017-10-26] MEDS: ASCORBIC ACID 500 MG TAB GTB (09:53)
[2017-10-26] MEDS: MINOXIDIL 2.5 MG TAB GTB (09:53)
[2017-10-26] MEDS: predniSONE 2.5 MG TAB GTB ×2 (09:54→22:00)
[2017-10-26] MEDS: NYSTATIN 30 GM POWDER BTL TOP ×2 (09:55→22:01)
[2017-10-26] MEDS: BALSAM PERU/CASTOR OIL 60 GM TUBE TOP ×2 (09:55→22:02)
[2017-10-26] MEDS: FLUOCINONIDE 0.05% 15 GM CR TOP ×2 (09:56→22:01)
[2017-10-26 10:01] LABS: ANION GAP 29 (8-16); BLOOD UREA NITROGEN 99 mg/dl (7-20); CARBON DIOXIDE 26 mmol/L (21-31); CHLORIDE 91 mmol/L (97-110); CREATININE 6.09 mg/dl (0.44-1.00); GLUCOSE 111 mg/dl (70-220); MAGNESIUM 2.7 mg/dl (1.7-2.5); POTASSIUM 5.9 mmol/L (3.5-5.1); SODIUM 140 mmol/L (135-144)
[2017-10-26 10:09] LABS: PHOSPHORUS 14.9 mg/dl (2.5-4.9)
[2017-10-26] MEDS: HEPARIN 5,000 UNIT/0.5 ML VIAL SC ×2 (10:12→22:03)
[2017-10-26] MEDS: INSULIN GLARGINE [LANtus] 3 ML PEN SC ×2 (10:12→20:09)
[2017-10-26] MEDS: VANCOMYCIN 1 GM 250 ML IVPB (22:01)
[2017-10-27] MEDS: LEVOTHYROXINE 125 MCG TAB GTB (06:29)
[2017-10-27] MEDS: INSULIN ASPART [NOVOLOG] 3 ML PEN SC ×3 (06:32→18:00)
[2017-10-27] MEDS: VANCOMYCIN HCL 250 MG/5ML POSYG GTB ×3 (06:34→18:28)
[2017-10-27] MEDS: RIFAMPIN 300 MG CAP GTB (08:14)
[2017-10-27] MEDS: MULTIVIT/CA CARB/B CMPLX/FA TAB GTB (08:15)
[2017-10-27] MEDS: MINOXIDIL 2.5 MG TAB GTB (08:15)
[2017-10-27] MEDS: LEVETIRACETAM (100 MG/ML) 5ML CUP GTB ×2 (08:15→20:52)
[2017-10-27] MEDS: NEUTRA-PHOS 250 MG PACKET GTB (08:16)
[2017-10-27] MEDS: AMLODIPINE 10 MG TAB GTB (08:16)
[2017-10-27] MEDS: RISPERIDONE 0.25 MG TAB GTB (08:16)
[2017-10-27] MEDS: ASCORBIC ACID 500 MG TAB GTB (08:16)
[2017-10-27] MEDS: predniSONE 2.5 MG TAB GTB ×2 (08:17→20:52)
[2017-10-27] MEDS: FLUOCINONIDE 0.05% 15 GM CR TOP ×2 (08:18→21:13)
[2017-10-27] MEDS: NYSTATIN 30 GM POWDER BTL TOP (08:19)
[2017-10-27] MEDS: BALSAM PERU/CASTOR OIL 60 GM TUBE TOP ×2 (08:19→21:13)
[2017-10-27] MEDS: HEPARIN 5,000 UNIT/0.5 ML VIAL SC ×2 (08:35→21:21)
[2017-10-27] MEDS: INSULIN GLARGINE [LANtus] 3 ML PEN SC ×2 (08:36→21:21)
[2017-10-27 11:52] LABS: ANION GAP 29 (8-16); BLOOD UREA NITROGEN 85 mg/dl (7-20); CALCIUM 9.2 mg/dl (8.4-10.2); CARBON DIOXIDE 27 mmol/L (21-31); CHLORIDE 85 mmol/L (97-110); CREATININE 5.45 mg/dl (0.44-1.00); GLUCOSE 134 mg/dl (70-220); POTASSIUM 5.2 mmol/L (3.5-5.1); SODIUM 136 mmol/L (135-144)
[2017-10-27] MEDS: SEVELAMER CARBONATE 2.4 GM PKT PO ×2 (13:34→20:52)
[2017-10-27] MEDS ORDERED: hydrALAzine 20 MG INJ IV (18:00)
[2017-10-28] MEDS: NYSTATIN 30 GM POWDER BTL TOP ×3 (00:41→20:28)
[2017-10-28] MEDS: VANCOMYCIN HCL 250 MG/5ML POSYG GTB ×4 (00:50→16:55)
[2017-10-28] MEDS: INSULIN ASPART [NOVOLOG] 3 ML PEN SC ×4 (06:00→16:54)
[2017-10-28] MEDS: FLUOCINONIDE 0.05% 15 GM CR TOP ×2 (08:07→20:28)
[2017-10-28] MEDS: BALSAM PERU/CASTOR OIL 60 GM TUBE TOP ×2 (08:07→20:28)
[2017-10-28] MEDS: LEVOTHYROXINE 125 MCG TAB GTB (08:08)
[2017-10-28] MEDS: ASCORBIC ACID 500 MG TAB GTB (08:08)
[2017-10-28] MEDS: predniSONE 2.5 MG TAB GTB ×2 (08:08→20:28)
[2017-10-28] MEDS: MINOXIDIL 2.5 MG TAB GTB (08:08)
[2017-10-28] MEDS: MULTIVIT/CA CARB/B CMPLX/FA TAB GTB (08:08)
[2017-10-28] MEDS: RISPERIDONE 0.25 MG TAB GTB (08:09)
[2017-10-28] MEDS: RIFAMPIN 300 MG CAP GTB (08:09)
[2017-10-28] MEDS: AMLODIPINE 10 MG TAB GTB (08:09)
[2017-10-28] MEDS: SEVELAMER CARBONATE 2.4 GM PKT PO (08:09)
[2017-10-28] MEDS: LEVETIRACETAM (100 MG/ML) 5ML CUP GTB ×2 (08:10→20:28)
[2017-10-28 08:12] LABS: ADD MAN DIFF? NO
[2017-10-28 08:17] LABS: BASOPHIL # 0.1 10^3/ul (0.0-0.1); BASOPHILS % 1.2 % (0.0-2.0); EOSINOPHILS # 0.5 10^3/ul (0.0-0.5); EOSINOPHILS % 5.3 % (0.0-7.0); HEMATOCRIT 36.5 % (37.0-47.0); LYMPHOCYTES # 1.7 10^3/ul (0.8-2.9); LYMPHOCYTES % 20.1 % (15.0-51.0); MEAN CORPUSCULAR HEMOGLOBIN 31.6 pg (29.0-33.0); MEAN CORPUSCULAR HGB CONC 32.9 g/dl (32.0-37.0); MEAN CORPUSCULAR VOLUME 96.1 fl (82.0-101.0); MEAN PLATELET VOLUME 12.4 fl (7.4-10.4); MONOCYTE # 1.1 10^3/ul (0.3-0.9); MONOCYTES % 12.9 % (0.0-11.0); NEUTROPHIL # 5.2 10^3/ul (1.6-7.5); NEUTROPHILS % 60.2 % (39.0-77.0); PLATELET COUNT 207 10^3/UL (140-415); RED CELL DISTRIBUTION WIDTH 14.9 % (11.5-14.5)
[2017-10-28 08:17] LABS: WHITE BLOOD COUNT 8.6 10^3/ul (4.8-10.8)
[2017-10-28] MEDS: HEPARIN 5,000 UNIT/0.5 ML VIAL SC ×2 (08:33→20:51)
[2017-10-28] MEDS: INSULIN GLARGINE [LANtus] 3 ML PEN SC ×2 (08:33→20:51)
[2017-10-28 08:47] LABS: ANION GAP 31 (8-16); BLOOD UREA NITROGEN 111 mg/dl (7-20); CALCIUM 9.1 mg/dl (8.4-10.2); CARBON DIOXIDE 28 mmol/L (21-31); CHLORIDE 86 mmol/L (97-110); GLUCOSE 106 mg/dl (70-220); MAGNESIUM 2.7 mg/dl (1.7-2.5); POTASSIUM 5.7 mmol/L (3.5-5.1); SODIUM 139 mmol/L (135-144)
[2017-10-28 09:18] LABS: PHOSPHORUS 14.7 mg/dl (2.5-4.9)
[2017-10-28] MEDS: SEVELAMER CARBONATE 0.8 GM PKT PO (12:20)
[2017-10-29] MEDS: SEVELAMER CARBONATE 0.8 GM PKT PO ×4 (00:22→21:43)
[2017-10-29] MEDS: VANCOMYCIN HCL 250 MG/5ML POSYG GTB ×4 (00:22→17:44)
[2017-10-29] MEDS: INSULIN ASPART [NOVOLOG] 3 ML PEN SC ×4 (00:41→17:44)
[2017-10-29] MEDS: LEVOTHYROXINE 125 MCG TAB GTB (06:44)
[2017-10-29] MEDS: AMLODIPINE 10 MG TAB GTB (09:00)
[2017-10-29] MEDS: MINOXIDIL 2.5 MG TAB GTB (09:00)
[2017-10-29] MEDS: INSULIN GLARGINE [LANtus] 3 ML PEN SC ×2 (09:02→21:55)
[2017-10-29] MEDS: LEVETIRACETAM (100 MG/ML) 5ML CUP GTB ×2 (09:22→21:42)
[2017-10-29] MEDS: RIFAMPIN 300 MG CAP GTB (09:22)
[2017-10-29] MEDS: predniSONE 2.5 MG TAB GTB ×2 (09:22→21:42)
[2017-10-29] MEDS: RISPERIDONE 0.25 MG TAB GTB (09:22)
[2017-10-29] MEDS: MULTIVIT/CA CARB/B CMPLX/FA TAB GTB (09:23)
[2017-10-29] MEDS: BALSAM PERU/CASTOR OIL 60 GM TUBE TOP ×2 (09:23→22:12)
[2017-10-29] MEDS: NYSTATIN 30 GM POWDER BTL TOP ×2 (09:23→22:11)
[2017-10-29] MEDS: ASCORBIC ACID 500 MG TAB GTB (09:23)
[2017-10-29] MEDS: FLUOCINONIDE 0.05% 15 GM CR TOP ×2 (09:24→21:42)
[2017-10-29] MEDS: HEPARIN 5,000 UNIT/0.5 ML VIAL SC ×2 (09:26→22:17)
[2017-10-29 09:32] LABS: ANION GAP 29 (8-16); BLOOD UREA NITROGEN 73 mg/dl (7-20); CARBON DIOXIDE 26 mmol/L (21-31); CHLORIDE 94 mmol/L (97-110); CREATININE 5.31 mg/dl (0.44-1.00); GLUCOSE 144 mg/dl (70-220); MAGNESIUM 2.8 mg/dl (1.7-2.5); PHOSPHORUS 9.5 mg/dl (2.5-4.9); POTASSIUM 4.9 mmol/L (3.5-5.1); SODIUM 144 mmol/L (135-144)
[2017-10-30] MEDS: INSULIN ASPART [NOVOLOG] 3 ML PEN SC ×4 (00:24→17:12)
[2017-10-30] MEDS: VANCOMYCIN HCL 250 MG/5ML POSYG GTB ×5 (00:25→21:36)
[2017-10-30] MEDS: LEVOTHYROXINE 125 MCG TAB GTB (06:08)
[2017-10-30] MEDS: INSULIN GLARGINE [LANtus] 3 ML PEN SC ×2 (08:57→21:24)
[2017-10-30] MEDS: SEVELAMER CARBONATE 0.8 GM PKT PO ×3 (09:26→21:26)
[2017-10-30] MEDS: MULTIVIT/CA CARB/B CMPLX/FA TAB GTB (09:27)
[2017-10-30] MEDS: RISPERIDONE 0.25 MG TAB GTB (09:27)
[2017-10-30] MEDS: RIFAMPIN 300 MG CAP GTB (09:27)
[2017-10-30] MEDS: LEVETIRACETAM (100 MG/ML) 5ML CUP GTB ×2 (09:27→21:26)
[2017-10-30] MEDS: AMLODIPINE 10 MG TAB GTB (09:28)
[2017-10-30] MEDS: ASCORBIC ACID 500 MG TAB GTB (09:28)
[2017-10-30] MEDS: predniSONE 2.5 MG TAB GTB ×2 (09:28→21:26)
[2017-10-30] MEDS: MINOXIDIL 2.5 MG TAB GTB (09:28)
[2017-10-30] MEDS: HEPARIN 5,000 UNIT/0.5 ML VIAL SC ×2 (09:29→21:40)
[2017-10-30] MEDS: BALSAM PERU/CASTOR OIL 60 GM TUBE TOP ×2 (09:30→21:27)
[2017-10-30] MEDS: FLUOCINONIDE 0.05% 15 GM CR TOP ×2 (09:30→21:27)
[2017-10-30] MEDS: NYSTATIN 30 GM POWDER BTL TOP ×2 (09:30→21:27)
[2017-10-30 09:36] LABS: ANION GAP 29 (8-16); BLOOD UREA NITROGEN 72 mg/dl (7-20); CALCIUM 10.2 mg/dl (8.4-10.2); CARBON DIOXIDE 25 mmol/L (21-31); CHLORIDE 96 mmol/L (97-110); CREATININE 5.48 mg/dl (0.44-1.00); GLUCOSE 148 mg/dl (70-220); MAGNESIUM 3.1 mg/dl (1.7-2.5); POTASSIUM 5.9 mmol/L (3.5-5.1); SODIUM 144 mmol/L (135-144)
[2017-10-30] MEDS: VANCOMYCIN 1 GM 250 ML IVPB (21:46)
[2017-10-31] MEDS: INSULIN ASPART [NOVOLOG] 3 ML PEN SC ×4 (00:46→17:13)
[2017-10-31] MEDS: VANCOMYCIN HCL 250 MG/5ML POSYG GTB ×3 (06:30→17:15)
[2017-10-31] MEDS: LEVOTHYROXINE 125 MCG TAB GTB (06:30)
[2017-10-31] MEDS: INSULIN GLARGINE [LANtus] 3 ML PEN SC ×2 (07:51→20:34)
[2017-10-31] MEDS: ASCORBIC ACID 500 MG TAB GTB (08:18)
[2017-10-31] MEDS: AMLODIPINE 10 MG TAB GTB (08:18)
[2017-10-31] MEDS: RIFAMPIN 300 MG CAP GTB (08:18)
[2017-10-31] MEDS: MINOXIDIL 2.5 MG TAB GTB (08:18)
[2017-10-31] MEDS: predniSONE 2.5 MG TAB GTB ×2 (08:18→20:00)
[2017-10-31] MEDS: LEVETIRACETAM (100 MG/ML) 5ML CUP GTB ×2 (08:18→20:00)
[2017-10-31] MEDS: MULTIVIT/CA CARB/B CMPLX/FA TAB GTB (08:19)
[2017-10-31] MEDS: SEVELAMER CARBONATE 0.8 GM PKT PO ×3 (08:19→20:01)
[2017-10-31] MEDS: RISPERIDONE 0.25 MG TAB GTB (08:19)
[2017-10-31] MEDS: NYSTATIN 30 GM POWDER BTL TOP ×2 (08:19→20:01)
[2017-10-31] MEDS: FLUOCINONIDE 0.05% 15 GM CR TOP ×2 (08:19→20:01)
[2017-10-31] MEDS: BALSAM PERU/CASTOR OIL 60 GM TUBE TOP ×2 (08:19→20:01)
[2017-10-31 08:51] LABS: ANION GAP 23 (8-16); BLOOD UREA NITROGEN 57 mg/dl (7-20); CALCIUM 10.1 mg/dl (8.4-10.2); CARBON DIOXIDE 25 mmol/L (21-31); CHLORIDE 104 mmol/L (97-110); CREATININE 4.58 mg/dl (0.44-1.00); GLUCOSE 177 mg/dl (70-220); POTASSIUM 4.3 mmol/L (3.5-5.1); SODIUM 148 mmol/L (135-144)
[2017-10-31] MEDS: HEPARIN 5,000 UNIT/0.5 ML VIAL SC ×2 (09:19→20:33)
[2017-10-31] MEDS: ACETAMINOPHEN 325 MG TAB GTB (11:27)
[2017-11-01] MEDS: VANCOMYCIN HCL 250 MG/5ML POSYG GTB ×4 (00:33→17:26)
[2017-11-01] MEDS: INSULIN ASPART [NOVOLOG] 3 ML PEN SC ×4 (00:42→17:34)
[2017-11-01] MEDS: LEVOTHYROXINE 125 MCG TAB GTB (06:06)
[2017-11-01 06:54] LABS: ADD MAN DIFF? NO
[2017-11-01 06:59] LABS: WHITE BLOOD COUNT 14.6 10^3/ul (4.8-10.8)
[2017-11-01 06:59] LABS: BASOPHIL # 0.1 10^3/ul (0.0-0.1); BASOPHILS % 0.8 % (0.0-2.0); EOSINOPHILS # 0.3 10^3/ul (0.0-0.5); EOSINOPHILS % 2.3 % (0.0-7.0); HEMATOCRIT 38.7 % (37.0-47.0); HEMOGLOBIN 11.8 g/dl (12.0-16.0); LYMPHOCYTES # 2.3 10^3/ul (0.8-2.9); LYMPHOCYTES % 15.7 % (15.0-51.0); MEAN CORPUSCULAR HEMOGLOBIN 30.6 pg (29.0-33.0); MEAN CORPUSCULAR HGB CONC 30.5 g/dl (32.0-37.0); MEAN CORPUSCULAR VOLUME 100.5 fl (82.0-101.0); MEAN PLATELET VOLUME 12.5 fl (7.4-10.4); MONOCYTE # 1.4 10^3/ul (0.3-0.9); MONOCYTES % 9.5 % (0.0-11.0); NEUTROPHIL # 10.4 10^3/ul (1.6-7.5); NEUTROPHILS % 71.4 % (39.0-77.0); PLATELET COUNT 184 10^3/UL (140-415); RED BLOOD COUNT 3.85 10^6/ul (4.20-5.40); RED CELL DISTRIBUTION WIDTH 14.4 % (11.5-14.5)
[2017-11-01 07:40] LABS: ANION GAP 27 (8-16); BLOOD UREA NITROGEN 84 mg/dl (7-20); CALCIUM 9.7 mg/dl (8.4-10.2); CARBON DIOXIDE 21 mmol/L (21-31); CHLORIDE 100 mmol/L (97-110); CREATININE 5.96 mg/dl (0.44-1.00); GLUCOSE 163 mg/dl (70-220); MAGNESIUM 3.3 mg/dl (1.7-2.5); POTASSIUM 4.7 mmol/L (3.5-5.1); SODIUM 143 mmol/L (135-144)
[2017-11-01] MEDS: BALSAM PERU/CASTOR OIL 60 GM TUBE TOP ×2 (08:55→21:52)
[2017-11-01] MEDS: NYSTATIN 30 GM POWDER BTL TOP ×2 (08:55→21:52)
[2017-11-01] MEDS: RISPERIDONE 0.25 MG TAB GTB (08:56)
[2017-11-01] MEDS: SEVELAMER CARBONATE 0.8 GM PKT PO ×3 (08:56→21:52)
[2017-11-01] MEDS: LEVETIRACETAM (100 MG/ML) 5ML CUP GTB ×2 (08:56→21:51)
[2017-11-01] MEDS: MULTIVIT/CA CARB/B CMPLX/FA TAB GTB (08:56)
[2017-11-01] MEDS: predniSONE 2.5 MG TAB GTB ×2 (08:57→21:51)
[2017-11-01] MEDS: AMLODIPINE 10 MG TAB GTB (08:57)
[2017-11-01] MEDS: MINOXIDIL 2.5 MG TAB GTB (08:57)
[2017-11-01] MEDS: ASCORBIC ACID 500 MG TAB GTB (08:57)
[2017-11-01] MEDS: RIFAMPIN 300 MG CAP GTB (08:57)
[2017-11-01] MEDS: FLUOCINONIDE 0.05% 15 GM CR TOP ×2 (08:58→21:52)
[2017-11-01] MEDS: HEPARIN 5,000 UNIT/0.5 ML VIAL SC ×2 (09:13→21:55)
[2017-11-01] MEDS: INSULIN GLARGINE [LANtus] 3 ML PEN SC ×2 (09:13→20:33)
[2017-11-01] MEDS: ACETAMINOPHEN 325 MG TAB GTB (10:15)
[2017-11-01] MEDS: HEPARIN 1000 UNITS/ML 10 ML INJ CATHETER (15:00)
[2017-11-01] MEDS ORDERED: AMIKACIN IV PER PHARMACY XX (18:30)
[2017-11-01] MEDS: AMIKACIN IVPB (20:21)
[2017-11-01] MEDS: DEXTROSE 5% IVPB (20:21)
[2017-11-02] MEDS: INSULIN ASPART [NOVOLOG] 3 ML PEN SC ×5 (00:44→21:00)
[2017-11-02] MEDS: VANCOMYCIN HCL 250 MG/5ML POSYG GTB ×4 (01:18→18:29)
[2017-11-02 08:22] LABS: ALANINE AMINOTRANSFERASE 32 IU/L (13-69); ALBUMIN 4.1 g/dl (3.3-4.9); ALBUMIN/GLOBULIN RATIO 1.07; ALKALINE PHOSPHATASE 254 IU/L (42-121); ANION GAP 22 (8-16); ASPARTATE AMINO TRANSFERASE 23 IU/L (15-46); BLOOD UREA NITROGEN 69 mg/dl (7-20); CALCIUM 9.9 mg/dl (8.4-10.2); CARBON DIOXIDE 24 mmol/L (21-31); CHLORIDE 96 mmol/L (97-110); CREATININE 5.08 mg/dl (0.44-1.00); GLUCOSE 191 mg/dl (70-220); MAGNESIUM 3.1 mg/dl (1.7-2.5); POTASSIUM 4.3 mmol/L (3.5-5.1); SODIUM 138 mmol/L (135-144); TOTAL PROTEIN 7.9 g/dl (6.1-8.1)
[2017-11-02] MEDS: RISPERIDONE 0.25 MG TAB GTB (09:09)
[2017-11-02] MEDS: RIFAMPIN 300 MG CAP GTB (09:09)
[2017-11-02] MEDS: MULTIVIT/CA CARB/B CMPLX/FA TAB GTB (09:09)
[2017-11-02] MEDS: LEVOTHYROXINE 125 MCG TAB GTB (09:09)
[2017-11-02] MEDS: SEVELAMER CARBONATE 0.8 GM PKT PO ×3 (09:09→21:11)
[2017-11-02] MEDS: predniSONE 2.5 MG TAB GTB ×2 (09:09→21:10)
[2017-11-02] MEDS: LEVETIRACETAM (100 MG/ML) 5ML CUP GTB ×2 (09:09→21:11)
[2017-11-02] MEDS: MINOXIDIL 2.5 MG TAB GTB (09:10)
[2017-11-02] MEDS: BALSAM PERU/CASTOR OIL 60 GM TUBE TOP ×2 (09:10→21:15)
[2017-11-02] MEDS: AMLODIPINE 10 MG TAB GTB (09:10)
[2017-11-02] MEDS: NYSTATIN 30 GM POWDER BTL TOP ×2 (09:10→21:15)
[2017-11-02] MEDS: FLUOCINONIDE 0.05% 15 GM CR TOP ×2 (09:11→21:14)
[2017-11-02] MEDS: ASCORBIC ACID 500 MG TAB GTB (09:13)
[2017-11-02] MEDS: HEPARIN 5,000 UNIT/0.5 ML VIAL SC ×2 (09:33→21:14)
[2017-11-02] MEDS: INSULIN GLARGINE [LANtus] 3 ML PEN SC ×2 (09:33→21:13)
[2017-11-02] MEDS: ACETAMINOPHEN 325 MG TAB GTB (13:59)
[2017-11-02] MEDS: ALBUTEROL/IPRATROPIUM (NEB) 3 ML AMP NEB (15:17)
[2017-11-02] MEDS: HYDROCODONE/APAP (10/325) TAB PO (18:29)
[2017-11-03] MEDS: INSULIN ASPART [NOVOLOG] 3 ML PEN SC ×6 (01:00→21:00)
[2017-11-03] MEDS: VANCOMYCIN HCL 250 MG/5ML POSYG GTB ×4 (01:09→17:02)
[2017-11-03] MEDS: LEVOTHYROXINE 125 MCG TAB GTB (06:39)
[2017-11-03] MEDS: predniSONE 2.5 MG TAB GTB ×2 (09:00→21:00)
[2017-11-03] MEDS: ASCORBIC ACID 500 MG TAB GTB (09:00)
[2017-11-03] MEDS: RISPERIDONE 0.25 MG TAB GTB (09:00)
[2017-11-03] MEDS: LEVETIRACETAM (100 MG/ML) 5ML CUP GTB ×2 (09:00→21:00)
[2017-11-03] MEDS: AMLODIPINE 10 MG TAB GTB (09:00)
[2017-11-03] MEDS: MINOXIDIL 2.5 MG TAB GTB (09:00)
[2017-11-03] MEDS: MULTIVIT/CA CARB/B CMPLX/FA TAB GTB (09:00)
[2017-11-03] MEDS: RIFAMPIN 300 MG CAP GTB (09:00)
[2017-11-03] MEDS: SEVELAMER CARBONATE 0.8 GM PKT PO ×3 (09:00→21:00)
[2017-11-03 09:41] LABS: ADD MAN DIFF? NO
[2017-11-03 09:44] LABS: ABNORMAL IP MESSAGE 1; BASOPHIL # 0.1 10^3/ul (0.0-0.1); BASOPHILS % 0.6 % (0.0-2.0); EOSINOPHILS # 0.8 10^3/ul (0.0-0.5); EOSINOPHILS % 6.4 % (0.0-7.0); HEMATOCRIT 35.8 % (37.0-47.0); HEMOGLOBIN 11.5 g/dl (12.0-16.0); LYMPHOCYTES # 1.8 10^3/ul (0.8-2.9); LYMPHOCYTES % 13.7 % (15.0-51.0); MEAN CORPUSCULAR HEMOGLOBIN 31.5 pg (29.0-33.0); MEAN CORPUSCULAR HGB CONC 32.1 g/dl (32.0-37.0); MEAN CORPUSCULAR VOLUME 98.1 fl (82.0-101.0); MEAN PLATELET VOLUME 13.2 fl (7.4-10.4); MONOCYTE # 1.2 10^3/ul (0.3-0.9); MONOCYTES % 9.1 % (0.0-11.0); NEUTROPHIL # 8.9 10^3/ul (1.6-7.5); NEUTROPHILS % 69.7 % (39.0-77.0); PLATELET COUNT 192 10^3/UL (140-415); RED BLOOD COUNT 3.65 10^6/ul (4.20-5.40)
[2017-11-03 09:44] LABS: WHITE BLOOD COUNT 12.8 10^3/ul (4.8-10.8)
[2017-11-03 09:51] LABS: POSITIVE DIFF @See below
[2017-11-03] MEDS: DEXTROSE 5%-0.45% NACL 1,000 ML IV (10:30)
[2017-11-03] MEDS: BALSAM PERU/CASTOR OIL 60 GM TUBE TOP ×2 (10:36→21:14)
[2017-11-03] MEDS: NYSTATIN 30 GM POWDER BTL TOP ×2 (10:36→21:14)
[2017-11-03] MEDS: FLUOCINONIDE 0.05% 15 GM CR TOP ×2 (10:36→21:15)
[2017-11-03] MEDS: INSULIN GLARGINE [LANtus] 3 ML PEN SC ×2 (10:41→21:18)
[2017-11-03] MEDS: HEPARIN 5,000 UNIT/0.5 ML VIAL SC ×2 (11:22→21:23)
[2017-11-03] MEDS ORDERED: [UNRECOGNIZED DRUG - REMARK] XX (20:30)
[2017-11-03] MEDS: VANCOMYCIN 1 GM 250 ML IVPB (21:00)
[2017-11-03] MEDS: AMIKACIN 300 MG in DEXTROSE 5% 100 ML IVPB (21:11)
[2017-11-04] MEDS: INSULIN ASPART [NOVOLOG] 3 ML PEN SC ×6 (01:00→22:32)
[2017-11-04] MEDS: VANCOMYCIN HCL 250 MG/5ML POSYG GTB ×5 (05:05→23:53)
[2017-11-04] MEDS: DEXTROSE 5%-0.45% NACL 1,000 ML IV (05:05)
[2017-11-04] MEDS: LEVOTHYROXINE 125 MCG TAB GTB (06:10)
[2017-11-04] MEDS: INSULIN GLARGINE [LANtus] 3 ML PEN SC ×2 (08:00→21:34)
[2017-11-04 08:54] LABS: ADD MAN DIFF? NO
[2017-11-04] MEDS: HEPARIN 5,000 UNIT/0.5 ML VIAL SC ×2 (09:00→22:33)
[2017-11-04] MEDS: RISPERIDONE 0.25 MG TAB GTB ×2 (09:00→12:01)
[2017-11-04] MEDS: RIFAMPIN 300 MG CAP GTB ×2 (09:00→12:00)
[2017-11-04] MEDS: predniSONE 2.5 MG TAB GTB ×3 (09:00→22:21)
[2017-11-04] MEDS: FLUOCINONIDE 0.05% 15 GM CR TOP ×2 (09:00→22:23)
[2017-11-04] MEDS: AMLODIPINE 10 MG TAB GTB ×2 (09:00→12:01)
[2017-11-04] MEDS: LEVETIRACETAM (100 MG/ML) 5ML CUP GTB ×3 (09:00→22:20)
[2017-11-04] MEDS: BALSAM PERU/CASTOR OIL 60 GM TUBE TOP ×2 (09:00→12:02)
[2017-11-04] MEDS: MINOXIDIL 2.5 MG TAB GTB ×2 (09:00→12:00)
[2017-11-04] MEDS: SEVELAMER CARBONATE 0.8 GM PKT PO ×3 (09:00→22:21)
[2017-11-04] MEDS: MULTIVIT/CA CARB/B CMPLX/FA TAB GTB ×2 (09:00→12:00)
[2017-11-04] MEDS: NYSTATIN 30 GM POWDER BTL TOP ×3 (09:00→22:22)
[2017-11-04] MEDS: ASCORBIC ACID 500 MG TAB GTB ×2 (09:00→12:00)
[2017-11-04 09:06] LABS: WHITE BLOOD COUNT 7.9 10^3/ul (4.8-10.8)
[2017-11-04 09:06] LABS: BASOPHIL # 0.1 10^3/ul (0.0-0.1); BASOPHILS % 1.1 % (0.0-2.0); EOSINOPHILS # 0.7 10^3/ul (0.0-0.5); EOSINOPHILS % 8.4 % (0.0-7.0); HEMATOCRIT 36.4 % (37.0-47.0); HEMOGLOBIN 11.6 g/dl (12.0-16.0); LYMPHOCYTES # 1.3 10^3/ul (0.8-2.9); LYMPHOCYTES % 16.7 % (15.0-51.0); MEAN CORPUSCULAR HGB CONC 31.9 g/dl (32.0-37.0); MEAN CORPUSCULAR VOLUME 100.3 fl (82.0-101.0); MEAN PLATELET VOLUME 12.1 fl (7.4-10.4); MONOCYTE # 0.9 10^3/ul (0.3-0.9); MONOCYTES % 11.2 % (0.0-11.0); NEUTROPHIL # 4.9 10^3/ul (1.6-7.5); NEUTROPHILS % 62.3 % (39.0-77.0); PLATELET COUNT 193 10^3/UL (140-415); RED BLOOD COUNT 3.63 10^6/ul (4.20-5.40); RED CELL DISTRIBUTION WIDTH 13.6 % (11.5-14.5)
[2017-11-04 09:43] LABS: ANION GAP 19 (8-16); BLOOD UREA NITROGEN 54 mg/dl (7-20); CALCIUM 9.5 mg/dl (8.4-10.2); CARBON DIOXIDE 26 mmol/L (21-31); CHLORIDE 102 mmol/L (97-110); GLUCOSE 136 mg/dl (70-220); MAGNESIUM 3.2 mg/dl (1.7-2.5); PHOSPHORUS 6.5 mg/dl (2.5-4.9); POTASSIUM 3.4 mmol/L (3.5-5.1); SODIUM 144 mmol/L (135-144)
[2017-11-05] MEDS: DEXTROSE 5%-0.45% NACL 1,000 ML IV ×2 (01:30→04:14)
[2017-11-05] MEDS: BALSAM PERU/CASTOR OIL 60 GM TUBE TOP ×3 (01:34→20:20)
[2017-11-05] MEDS: INSULIN ASPART [NOVOLOG] 3 ML PEN SC ×6 (01:43→20:34)
[2017-11-05] MEDS: VANCOMYCIN HCL 250 MG/5ML POSYG GTB (06:10)
[2017-11-05] MEDS: LEVOTHYROXINE 125 MCG TAB GTB (06:16)
[2017-11-05] MEDS: AMLODIPINE 10 MG TAB GTB (09:00)
[2017-11-05] MEDS: MINOXIDIL 2.5 MG TAB GTB (09:00)
[2017-11-05] MEDS: SEVELAMER CARBONATE 0.8 GM PKT PO ×3 (09:46→20:19)
[2017-11-05] MEDS: predniSONE 2.5 MG TAB GTB ×2 (09:48→20:19)
[2017-11-05] MEDS: RISPERIDONE 0.25 MG TAB GTB (09:48)
[2017-11-05] MEDS: NYSTATIN 30 GM POWDER BTL TOP ×2 (09:48→20:20)
[2017-11-05] MEDS: MULTIVIT/CA CARB/B CMPLX/FA TAB GTB (09:48)
[2017-11-05] MEDS: RIFAMPIN 300 MG CAP GTB (09:48)
[2017-11-05] MEDS: ASCORBIC ACID 500 MG TAB GTB (09:48)
[2017-11-05] MEDS: LEVETIRACETAM (100 MG/ML) 5ML CUP GTB ×2 (09:48→20:18)
[2017-11-05] MEDS: FLUOCINONIDE 0.05% 15 GM CR TOP ×2 (09:49→20:20)
[2017-11-05] MEDS: INSULIN GLARGINE [LANtus] 3 ML PEN SC ×2 (09:56→20:34)
[2017-11-05] MEDS: HEPARIN 5,000 UNIT/0.5 ML VIAL SC ×2 (09:57→20:35)
[2017-11-05] MEDS: NYSTATIN 15 GM OINT TOP ×2 (13:00→20:18)
[2017-11-05 16:52] LABS: AADO2 Arterial 182.7 mmHg (7.0-24.0); Allen Test ACCEPTAB; Arterial Base Excess 0.9 mmol/L (-3.0-3); Arterial Blood Gas Oxygen Sat 99.7 mmHG (95.0-100.0); Arterial COHb 0.3 % (0.0-3.0); Arterial HCO3 24.3 mmol/L (22.0-26.0); Arterial MetHb 0.4 % (0.0-1.5); Arterial Total Hemglobin 12.6 g/dl (12.0-18.0); Arterial pCO2 34.9 mmhg (35-45); MODE VENT - AC; Site Right Radial
[2017-11-06] MEDS: INSULIN ASPART [NOVOLOG] 3 ML PEN SC ×4 (00:34→17:42)
[2017-11-06] MEDS: LEVOTHYROXINE 125 MCG TAB GTB (06:17)
[2017-11-06] MEDS: INSULIN GLARGINE [LANtus] 3 ML PEN SC ×2 (08:20→20:30)
[2017-11-06] MEDS: SEVELAMER CARBONATE 0.8 GM PKT PO ×3 (08:54→20:34)
[2017-11-06] MEDS: MULTIVIT/CA CARB/B CMPLX/FA TAB GTB (08:54)
[2017-11-06] MEDS: LEVETIRACETAM (100 MG/ML) 5ML CUP GTB ×2 (08:54→20:33)
[2017-11-06] MEDS: RISPERIDONE 0.25 MG TAB GTB (08:56)
[2017-11-06] MEDS: ASCORBIC ACID 500 MG TAB GTB (08:57)
[2017-11-06] MEDS: AMLODIPINE 10 MG TAB GTB (08:57)
[2017-11-06] MEDS: RIFAMPIN 300 MG CAP GTB (08:57)
[2017-11-06] MEDS: MINOXIDIL 2.5 MG TAB GTB (08:57)
[2017-11-06] MEDS: BALSAM PERU/CASTOR OIL 60 GM TUBE TOP ×2 (08:59→22:17)
[2017-11-06] MEDS: FLUOCINONIDE 0.05% 15 GM CR TOP ×2 (08:59→20:35)
[2017-11-06] MEDS: NYSTATIN 30 GM POWDER BTL TOP ×2 (08:59→20:34)
[2017-11-06] MEDS: NYSTATIN 15 GM OINT TOP ×3 (09:00→20:35)
[2017-11-06] MEDS: HEPARIN 5,000 UNIT/0.5 ML VIAL SC ×2 (09:11→20:31)
[2017-11-06 09:21] LABS: ADD MAN DIFF? NO
[2017-11-06 09:34] LABS: WHITE BLOOD COUNT 9.2 10^3/ul (4.8-10.8)
[2017-11-06 09:34] LABS: BASOPHILS % 0.4 % (0.0-2.0); EOSINOPHILS # 1.4 10^3/ul (0.0-0.5); EOSINOPHILS % 15.3 % (0.0-7.0); HEMATOCRIT 34.4 % (37.0-47.0); HEMOGLOBIN 10.8 g/dl (12.0-16.0); LYMPHOCYTES # 1.7 10^3/ul (0.8-2.9); LYMPHOCYTES % 18.2 % (15.0-51.0); MEAN CORPUSCULAR HEMOGLOBIN 31.4 pg (29.0-33.0); MEAN CORPUSCULAR HGB CONC 31.4 g/dl (32.0-37.0); MEAN PLATELET VOLUME 12.1 fl (7.4-10.4); MONOCYTE # 0.8 10^3/ul (0.3-0.9); MONOCYTES % 8.8 % (0.0-11.0); NEUTROPHIL # 5.2 10^3/ul (1.6-7.5); NEUTROPHILS % 56.8 % (39.0-77.0); PLATELET COUNT 217 10^3/UL (140-415); RED BLOOD COUNT 3.44 10^6/ul (4.20-5.40); RED CELL DISTRIBUTION WIDTH 13.8 % (11.5-14.5)
[2017-11-06 09:53] LABS: ANION GAP 20 (8-16); BLOOD UREA NITROGEN 75 mg/dl (7-20); CALCIUM 9.7 mg/dl (8.4-10.2); CARBON DIOXIDE 23 mmol/L (21-31); CHLORIDE 102 mmol/L (97-110); CREATININE 5.85 mg/dl (0.44-1.00); GLUCOSE 210 mg/dl (70-220); PHOSPHORUS 4.6 mg/dl (2.5-4.9); POTASSIUM 3.6 mmol/L (3.5-5.1); SODIUM 141 mmol/L (135-144)
[2017-11-07] MEDS: INSULIN ASPART [NOVOLOG] 3 ML PEN SC ×4 (00:49→18:20)
[2017-11-07] MEDS: LEVOTHYROXINE 125 MCG TAB GTB (06:35)
[2017-11-07 08:27] LABS: ADD MAN DIFF? NO
[2017-11-07 08:33] LABS: WHITE BLOOD COUNT 9.1 10^3/ul (4.8-10.8)
[2017-11-07 08:33] LABS: BASOPHIL # 0.1 10^3/ul (0.0-0.1); BASOPHILS % 0.9 % (0.0-2.0); EOSINOPHILS # 1.6 10^3/ul (0.0-0.5); EOSINOPHILS % 17.5 % (0.0-7.0); HEMATOCRIT 33.8 % (37.0-47.0); HEMOGLOBIN 10.6 g/dl (12.0-16.0); LYMPHOCYTES # 1.9 10^3/ul (0.8-2.9); LYMPHOCYTES % 20.6 % (15.0-51.0); MEAN CORPUSCULAR HEMOGLOBIN 31.3 pg (29.0-33.0); MEAN CORPUSCULAR HGB CONC 31.4 g/dl (32.0-37.0); MEAN CORPUSCULAR VOLUME 99.7 fl (82.0-101.0); MEAN PLATELET VOLUME 11.9 fl (7.4-10.4); MONOCYTE # 0.7 10^3/ul (0.3-0.9); MONOCYTES % 7.9 % (0.0-11.0); NEUTROPHIL # 4.8 10^3/ul (1.6-7.5); NEUTROPHILS % 52.4 % (39.0-77.0); PLATELET COUNT 211 10^3/UL (140-415); RED BLOOD COUNT 3.39 10^6/ul (4.20-5.40); RED CELL DISTRIBUTION WIDTH 13.6 % (11.5-14.5)
[2017-11-07 09:00] LABS: ANION GAP 21 (8-16); BLOOD UREA NITROGEN 103 mg/dl (7-20); CALCIUM 9.7 mg/dl (8.4-10.2); CARBON DIOXIDE 22 mmol/L (21-31); CHLORIDE 100 mmol/L (97-110); CREATININE 6.92 mg/dl (0.44-1.00); GLUCOSE 187 mg/dl (70-220); MAGNESIUM 3.3 mg/dl (1.7-2.5); PHOSPHORUS 4.8 mg/dl (2.5-4.9); POTASSIUM 3.7 mmol/L (3.5-5.1); SODIUM 139 mmol/L (135-144)
[2017-11-07] MEDS: MINOXIDIL 2.5 MG TAB GTB (09:00)
[2017-11-07] MEDS: AMLODIPINE 10 MG TAB GTB (09:00)
[2017-11-07] MEDS: MULTIVIT/CA CARB/B CMPLX/FA TAB GTB (10:07)
[2017-11-07] MEDS: SEVELAMER CARBONATE 0.8 GM PKT PO ×3 (10:07→20:33)
[2017-11-07] MEDS: LEVETIRACETAM (100 MG/ML) 5ML CUP GTB ×2 (10:07→20:33)
[2017-11-07] MEDS: ASCORBIC ACID 500 MG TAB GTB (10:07)
[2017-11-07] MEDS: RIFAMPIN 300 MG CAP GTB (10:08)
[2017-11-07] MEDS: RISPERIDONE 0.25 MG TAB GTB (10:08)
[2017-11-07] MEDS: NYSTATIN 15 GM OINT TOP ×3 (10:11→20:39)
[2017-11-07] MEDS: FLUOCINONIDE 0.05% 15 GM CR TOP ×2 (10:11→20:39)
[2017-11-07] MEDS: NYSTATIN 30 GM POWDER BTL TOP ×2 (10:11→20:40)
[2017-11-07] MEDS: BALSAM PERU/CASTOR OIL 60 GM TUBE TOP ×2 (10:11→20:39)
[2017-11-07] MEDS: HEPARIN 5,000 UNIT/0.5 ML VIAL SC ×2 (10:14→20:36)
[2017-11-07] MEDS: INSULIN GLARGINE [LANtus] 3 ML PEN SC ×2 (10:50→20:35)
[2017-11-08] MEDS: INSULIN ASPART [NOVOLOG] 3 ML PEN SC ×4 (00:17→17:43)
[2017-11-08] MEDS: LEVOTHYROXINE 125 MCG TAB GTB (06:15)
[2017-11-08] MEDS: MULTIVIT/CA CARB/B CMPLX/FA TAB GTB (08:24)
[2017-11-08] MEDS: RISPERIDONE 0.25 MG TAB GTB (08:24)
[2017-11-08] MEDS: LEVETIRACETAM (100 MG/ML) 5ML CUP GTB ×2 (08:25→21:41)
[2017-11-08] MEDS: ASCORBIC ACID 500 MG TAB GTB (08:26)
[2017-11-08] MEDS: SEVELAMER CARBONATE 0.8 GM PKT PO ×3 (08:26→21:42)
[2017-11-08] MEDS: RIFAMPIN 300 MG CAP GTB (08:26)
[2017-11-08] MEDS: BALSAM PERU/CASTOR OIL 60 GM TUBE TOP ×2 (08:28→21:43)
[2017-11-08] MEDS: NYSTATIN 15 GM OINT TOP ×3 (08:28→21:43)
[2017-11-08] MEDS: FLUOCINONIDE 0.05% 15 GM CR TOP ×2 (08:28→21:44)
[2017-11-08] MEDS: NYSTATIN 30 GM POWDER BTL TOP ×2 (08:28→21:42)
[2017-11-08] MEDS: HEPARIN 5,000 UNIT/0.5 ML VIAL SC ×2 (08:35→21:38)
[2017-11-08] MEDS: INSULIN GLARGINE [LANtus] 3 ML PEN SC ×2 (08:35→21:36)
[2017-11-08] MEDS: AMLODIPINE 10 MG TAB GTB (08:37)
[2017-11-08] MEDS: MINOXIDIL 2.5 MG TAB GTB (08:37)
[2017-11-09] MEDS: INSULIN ASPART [NOVOLOG] 3 ML PEN SC ×5 (00:07→23:56)
[2017-11-09] MEDS: LEVOTHYROXINE 125 MCG TAB GTB (06:26)
[2017-11-09] MEDS: MINOXIDIL 2.5 MG TAB GTB (09:00)
[2017-11-09] MEDS: AMLODIPINE 10 MG TAB GTB (09:00)
[2017-11-09] MEDS: INSULIN GLARGINE [LANtus] 3 ML PEN SC ×2 (09:24→20:43)
[2017-11-09] MEDS: LEVETIRACETAM (100 MG/ML) 5ML CUP GTB ×2 (09:29→20:37)
[2017-11-09] MEDS: ASCORBIC ACID 500 MG TAB GTB (09:30)
[2017-11-09] MEDS: MULTIVIT/CA CARB/B CMPLX/FA TAB GTB (09:30)
[2017-11-09] MEDS: RIFAMPIN 300 MG CAP GTB (09:30)
[2017-11-09] MEDS: SEVELAMER CARBONATE 0.8 GM PKT PO ×3 (09:30→20:37)
[2017-11-09] MEDS: RISPERIDONE 0.25 MG TAB GTB (09:30)
[2017-11-09] MEDS: BALSAM PERU/CASTOR OIL 60 GM TUBE TOP ×2 (09:32→20:38)
[2017-11-09] MEDS: NYSTATIN 15 GM OINT TOP ×3 (09:32→20:38)
[2017-11-09] MEDS: NYSTATIN 30 GM POWDER BTL TOP ×2 (09:32→20:38)
[2017-11-09] MEDS: FLUOCINONIDE 0.05% 15 GM CR TOP ×2 (09:33→20:38)
[2017-11-09] MEDS: HEPARIN 5,000 UNIT/0.5 ML VIAL SC ×2 (09:38→20:40)
[2017-11-10] MEDS: LEVOTHYROXINE 125 MCG TAB GTB (05:55)
[2017-11-10] MEDS: INSULIN ASPART [NOVOLOG] 3 ML PEN SC ×3 (06:01→17:59)
[2017-11-10] MEDS: SEVELAMER CARBONATE 0.8 GM PKT PO ×3 (09:14→22:09)
[2017-11-10] MEDS: MINOXIDIL 2.5 MG TAB GTB (09:15)
[2017-11-10] MEDS: RISPERIDONE 0.25 MG TAB GTB (09:16)
[2017-11-10] MEDS: LEVETIRACETAM (100 MG/ML) 5ML CUP GTB ×2 (09:16→22:09)
[2017-11-10] MEDS: MULTIVIT/CA CARB/B CMPLX/FA TAB GTB (09:16)
[2017-11-10] MEDS: AMLODIPINE 10 MG TAB GTB (09:16)
[2017-11-10] MEDS: RIFAMPIN 300 MG CAP GTB (09:16)
[2017-11-10] MEDS: INSULIN GLARGINE [LANtus] 3 ML PEN SC ×2 (09:19→22:12)
[2017-11-10] MEDS: HEPARIN 5,000 UNIT/0.5 ML VIAL SC ×2 (09:19→22:14)
[2017-11-10] MEDS: BALSAM PERU/CASTOR OIL 60 GM TUBE TOP ×2 (09:20→22:09)
[2017-11-10] MEDS: NYSTATIN 15 GM OINT TOP ×3 (09:20→22:10)
[2017-11-10] MEDS: NYSTATIN 30 GM POWDER BTL TOP ×2 (09:20→22:10)
[2017-11-10] MEDS: ASCORBIC ACID 500 MG TAB GTB (09:20)
[2017-11-10] MEDS: FLUOCINONIDE 0.05% 15 GM CR TOP ×2 (09:20→22:10)
[2017-11-10 15:42] LABS: HEPATITIS B SURFACE ANTIGEN NEGATIVE (NEGATIVE)
[2017-11-11] MEDS: LEVOTHYROXINE 125 MCG TAB GTB (06:25)
[2017-11-11] MEDS: INSULIN ASPART [NOVOLOG] 3 ML PEN SC ×4 (06:29→17:33)
[2017-11-11 08:21] LABS: ADD MAN DIFF? NO
[2017-11-11] MEDS: MULTIVIT/CA CARB/B CMPLX/FA TAB GTB (08:23)
[2017-11-11] MEDS: LEVETIRACETAM (100 MG/ML) 5ML CUP GTB ×2 (08:23→22:38)
[2017-11-11 08:24] LABS: BASOPHIL # 0.1 10^3/ul (0.0-0.1); EOSINOPHILS # 0.4 10^3/ul (0.0-0.5); EOSINOPHILS % 4.6 % (0.0-7.0); HEMATOCRIT 33.8 % (37.0-47.0); HEMOGLOBIN 10.7 g/dl (12.0-16.0); LYMPHOCYTES # 1.9 10^3/ul (0.8-2.9); LYMPHOCYTES % 20.6 % (15.0-51.0); MEAN CORPUSCULAR HEMOGLOBIN 31.5 pg (29.0-33.0); MEAN CORPUSCULAR HGB CONC 31.7 g/dl (32.0-37.0); MEAN CORPUSCULAR VOLUME 99.4 fl (82.0-101.0); MEAN PLATELET VOLUME 11.8 fl (7.4-10.4); MONOCYTE # 0.7 10^3/ul (0.3-0.9); MONOCYTES % 7.6 % (0.0-11.0); NEUTROPHIL # 5.9 10^3/ul (1.6-7.5); NEUTROPHILS % 65.6 % (39.0-77.0); PLATELET COUNT 240 10^3/UL (140-415); RED CELL DISTRIBUTION WIDTH 13.9 % (11.5-14.5)
[2017-11-11] MEDS: AMLODIPINE 10 MG TAB GTB (08:24)
[2017-11-11] MEDS: MINOXIDIL 2.5 MG TAB GTB (08:24)
[2017-11-11] MEDS: SEVELAMER CARBONATE 0.8 GM PKT PO ×3 (08:24→22:38)
[2017-11-11] MEDS: FLUOCINONIDE 0.05% 15 GM CR TOP ×2 (08:25→22:38)
[2017-11-11] MEDS: BALSAM PERU/CASTOR OIL 60 GM TUBE TOP ×2 (08:25→22:39)
[2017-11-11] MEDS: RISPERIDONE 0.25 MG TAB GTB (08:25)
[2017-11-11] MEDS: NYSTATIN 15 GM OINT TOP ×3 (08:25→22:38)
[2017-11-11] MEDS: ASCORBIC ACID 500 MG TAB GTB (08:25)
[2017-11-11] MEDS: RIFAMPIN 300 MG CAP GTB (08:25)
[2017-11-11] MEDS: NYSTATIN 30 GM POWDER BTL TOP ×2 (08:25→22:39)
[2017-11-11] MEDS: HEPARIN 5,000 UNIT/0.5 ML VIAL SC ×2 (08:28→22:40)
[2017-11-11] MEDS: INSULIN GLARGINE [LANtus] 3 ML PEN SC ×2 (08:30→22:41)
[2017-11-11 08:51] LABS: ANION GAP 21 (8-16); BLOOD UREA NITROGEN 92 mg/dl (7-20); CALCIUM 9.3 mg/dl (8.4-10.2); CARBON DIOXIDE 26 mmol/L (21-31); CHLORIDE 100 mmol/L (97-110); CREATININE 6.25 mg/dl (0.44-1.00); GLUCOSE 162 mg/dl (70-220); MAGNESIUM 3.3 mg/dl (1.7-2.5); PHOSPHORUS 3.9 mg/dl (2.5-4.9); POTASSIUM 3.8 mmol/L (3.5-5.1); SODIUM 143 mmol/L (135-144)
[2017-11-11] MEDS: HEPARIN 1000 UNITS/ML 10 ML INJ CATHETER (21:41)
[2017-11-12] MEDS: INSULIN ASPART [NOVOLOG] 3 ML PEN SC ×4 (01:00→18:03)
[2017-11-12] MEDS: LEVOTHYROXINE 125 MCG TAB GTB (06:20)
[2017-11-12] MEDS: AMLODIPINE 10 MG TAB GTB (09:00)
[2017-11-12] MEDS: MINOXIDIL 2.5 MG TAB GTB (09:00)
[2017-11-12] MEDS: RIFAMPIN 300 MG CAP GTB (09:17)
[2017-11-12] MEDS: NYSTATIN 15 GM OINT TOP ×3 (09:17→21:27)
[2017-11-12] MEDS: FLUOCINONIDE 0.05% 15 GM CR TOP ×2 (09:17→21:28)
[2017-11-12] MEDS: RISPERIDONE 0.25 MG TAB GTB (09:17)
[2017-11-12] MEDS: MULTIVIT/CA CARB/B CMPLX/FA TAB GTB (09:17)
[2017-11-12] MEDS: NYSTATIN 30 GM POWDER BTL TOP ×2 (09:17→21:28)
[2017-11-12] MEDS: LEVETIRACETAM (100 MG/ML) 5ML CUP GTB ×2 (09:17→21:27)
[2017-11-12] MEDS: ASCORBIC ACID 500 MG TAB GTB (09:17)
[2017-11-12] MEDS: SEVELAMER CARBONATE 0.8 GM PKT PO ×3 (09:17→21:27)
[2017-11-12] MEDS: BALSAM PERU/CASTOR OIL 60 GM TUBE TOP ×2 (09:18→21:28)
[2017-11-12] MEDS: INSULIN GLARGINE [LANtus] 3 ML PEN SC ×2 (09:25→20:29)
[2017-11-12] MEDS: HEPARIN 5,000 UNIT/0.5 ML VIAL SC ×2 (09:25→21:40)
[2017-11-13] MEDS: INSULIN ASPART [NOVOLOG] 3 ML PEN SC ×8 (00:29→21:00)
[2017-11-13] MEDS: LEVOTHYROXINE 125 MCG TAB GTB (06:07)
[2017-11-13] MEDS: FLUOCINONIDE 0.05% 15 GM CR TOP ×2 (08:58→21:21)
[2017-11-13] MEDS: HEPARIN 5,000 UNIT/0.5 ML VIAL SC ×2 (08:58→21:24)
[2017-11-13] MEDS: SEVELAMER CARBONATE 0.8 GM PKT PO ×3 (08:58→21:21)
[2017-11-13] MEDS: AMLODIPINE 10 MG TAB GTB (08:58)
[2017-11-13] MEDS: NYSTATIN 15 GM OINT TOP ×3 (08:58→21:21)
[2017-11-13] MEDS: MINOXIDIL 2.5 MG TAB GTB (08:58)
[2017-11-13] MEDS: NYSTATIN 30 GM POWDER BTL TOP ×2 (08:58→21:21)
[2017-11-13] MEDS: BALSAM PERU/CASTOR OIL 60 GM TUBE TOP ×2 (08:59→21:22)
[2017-11-13] MEDS: INSULIN GLARGINE [LANtus] 3 ML PEN SC ×2 (09:03→20:45)
[2017-11-13] MEDS: HEPARIN 1000 UNITS/ML 10 ML INJ CATHETER (11:50)
[2017-11-13] MEDS: RIFAMPIN 300 MG CAP GTB (12:31)
[2017-11-13] MEDS: LEVETIRACETAM (100 MG/ML) 5ML CUP GTB ×2 (12:31→20:45)
[2017-11-13] MEDS: MULTIVIT/CA CARB/B CMPLX/FA TAB GTB (12:31)
[2017-11-13] MEDS: RISPERIDONE 0.25 MG TAB GTB (12:31)
[2017-11-13] MEDS: ASCORBIC ACID 500 MG TAB GTB (12:32)
[2017-11-13] MEDS ORDERED: INSULIN GLARGINE [LANtus] 3 ML PEN SC (20:00)
[2017-11-14] MEDS: INSULIN ASPART [NOVOLOG] 3 ML PEN SC ×6 (01:00→20:38)
[2017-11-14] MEDS: LEVOTHYROXINE 125 MCG TAB GTB (06:34)
[2017-11-14] MEDS: MULTIVIT/CA CARB/B CMPLX/FA TAB GTB (08:35)
[2017-11-14] MEDS: SEVELAMER CARBONATE 0.8 GM PKT PO ×3 (08:35→21:46)
[2017-11-14] MEDS: LEVETIRACETAM (100 MG/ML) 5ML CUP GTB ×2 (08:35→20:33)
[2017-11-14] MEDS: MINOXIDIL 2.5 MG TAB GTB (08:36)
[2017-11-14] MEDS: RIFAMPIN 300 MG CAP GTB (08:36)
[2017-11-14] MEDS: RISPERIDONE 0.25 MG TAB GTB (08:36)
[2017-11-14] MEDS: AMLODIPINE 10 MG TAB GTB (08:36)
[2017-11-14] MEDS: NYSTATIN 30 GM POWDER BTL TOP ×2 (08:37→20:20)
[2017-11-14] MEDS: NYSTATIN 15 GM OINT TOP ×3 (08:38→20:20)
[2017-11-14] MEDS: BALSAM PERU/CASTOR OIL 60 GM TUBE TOP ×2 (08:46→20:21)
[2017-11-14] MEDS: FLUOCINONIDE 0.05% 15 GM CR TOP ×2 (08:46→20:22)
[2017-11-14] MEDS: HEPARIN 5,000 UNIT/0.5 ML VIAL SC ×2 (09:00→20:44)
[2017-11-14] MEDS: ASCORBIC ACID 500 MG TAB GTB (09:00)
[2017-11-14 09:47] LABS: ADD MAN DIFF? NO
[2017-11-14 10:00] LABS: BASOPHIL # 0.1 10^3/ul (0.0-0.1); EOSINOPHILS # 0.4 10^3/ul (0.0-0.5); EOSINOPHILS % 4.4 % (0.0-7.0); HEMATOCRIT 35.4 % (37.0-47.0); HEMOGLOBIN 11.1 g/dl (12.0-16.0); LYMPHOCYTES # 2.2 10^3/ul (0.8-2.9); MEAN CORPUSCULAR HGB CONC 31.4 g/dl (32.0-37.0); MEAN CORPUSCULAR VOLUME 98.9 fl (82.0-101.0); MEAN PLATELET VOLUME 11.7 fl (7.4-10.4); MONOCYTE # 0.8 10^3/ul (0.3-0.9); MONOCYTES % 8.6 % (0.0-11.0); NEUTROPHIL # 5.7 10^3/ul (1.6-7.5); NEUTROPHILS % 61.5 % (39.0-77.0); PLATELET COUNT 275 10^3/UL (140-415); RED BLOOD COUNT 3.58 10^6/ul (4.20-5.40); RED CELL DISTRIBUTION WIDTH 13.5 % (11.5-14.5)
[2017-11-14 10:00] LABS: WHITE BLOOD COUNT 9.3 10^3/ul (4.8-10.8)
[2017-11-14 10:21] LABS: ANION GAP 18 (8-16); BLOOD UREA NITROGEN 57 mg/dl (7-20); CALCIUM 9.4 mg/dl (8.4-10.2); CARBON DIOXIDE 28 mmol/L (21-31); CHLORIDE 98 mmol/L (97-110); CREATININE 3.74 mg/dl (0.44-1.00); GLUCOSE 136 mg/dl (70-220); MAGNESIUM 2.7 mg/dl (1.7-2.5); PHOSPHORUS 3.5 mg/dl (2.5-4.9); POTASSIUM 4.2 mmol/L (3.5-5.1); SODIUM 140 mmol/L (135-144)
[2017-11-14 10:26] LABS: HEMOGLOBIN A1C 5.9 % (0-5.9)
[2017-11-14] MEDS: INSULIN GLARGINE [LANtus] 3 ML PEN SC (20:27)
[2017-11-15] MEDS: INSULIN ASPART [NOVOLOG] 3 ML PEN SC ×6 (00:54→20:25)
[2017-11-15] MEDS: LEVOTHYROXINE 125 MCG TAB GTB (06:13)
[2017-11-15] MEDS: LEVETIRACETAM (100 MG/ML) 5ML CUP GTB ×2 (10:05→20:15)
[2017-11-15] MEDS: RIFAMPIN 300 MG CAP GTB (10:05)
[2017-11-15] MEDS: SEVELAMER CARBONATE 0.8 GM PKT PO ×3 (10:06→20:16)
[2017-11-15] MEDS: ASCORBIC ACID 500 MG TAB GTB (10:06)
[2017-11-15] MEDS: MINOXIDIL 2.5 MG TAB GTB (10:08)
[2017-11-15] MEDS: AMLODIPINE 10 MG TAB GTB (10:09)
[2017-11-15] MEDS: RISPERIDONE 0.25 MG TAB GTB (10:09)
[2017-11-15] MEDS: MULTIVIT/CA CARB/B CMPLX/FA TAB GTB (10:09)
[2017-11-15] MEDS: HEPARIN 5,000 UNIT/0.5 ML VIAL SC ×2 (10:11→20:28)
[2017-11-15] MEDS: FLUOCINONIDE 0.05% 15 GM CR TOP ×2 (10:12→22:07)
[2017-11-15] MEDS: NYSTATIN 15 GM OINT TOP ×3 (10:12→22:07)
[2017-11-15] MEDS: NYSTATIN 30 GM POWDER BTL TOP ×2 (10:12→22:07)
[2017-11-15] MEDS: BALSAM PERU/CASTOR OIL 60 GM TUBE TOP ×2 (10:12→22:07)
[2017-11-15] MEDS: ALTEPLASE (CATHFLO) 2 MG INJ CATHETER (19:36)
[2017-11-15] MEDS: INSULIN GLARGINE [LANtus] 3 ML PEN SC (20:23)
[2017-11-16] MEDS: INSULIN ASPART [NOVOLOG] 3 ML PEN SC ×6 (01:00→21:47)
[2017-11-16] MEDS: HYDROCODONE/APAP (10/325) TAB PO (02:08)
[2017-11-16] MEDS: LEVOTHYROXINE 125 MCG TAB GTB (07:17)
[2017-11-16] MEDS: LEVETIRACETAM (100 MG/ML) 5ML CUP GTB ×2 (09:19→21:36)
[2017-11-16] MEDS: SEVELAMER CARBONATE 0.8 GM PKT PO ×3 (09:19→21:36)
[2017-11-16] MEDS: MINOXIDIL 2.5 MG TAB GTB (09:20)
[2017-11-16] MEDS: AMLODIPINE 10 MG TAB GTB (09:20)
[2017-11-16] MEDS: RIFAMPIN 300 MG CAP GTB (09:20)
[2017-11-16] MEDS: ASCORBIC ACID 500 MG TAB GTB (09:20)
[2017-11-16] MEDS: RISPERIDONE 0.25 MG TAB GTB (09:21)
[2017-11-16] MEDS: BALSAM PERU/CASTOR OIL 60 GM TUBE TOP ×2 (09:26→21:34)
[2017-11-16] MEDS: NYSTATIN 15 GM OINT TOP ×3 (09:26→21:35)
[2017-11-16] MEDS: FLUOCINONIDE 0.05% 15 GM CR TOP ×2 (09:26→21:34)
[2017-11-16] MEDS: NYSTATIN 30 GM POWDER BTL TOP ×2 (09:27→21:35)
[2017-11-16] MEDS: HEPARIN 5,000 UNIT/0.5 ML VIAL SC ×2 (09:34→21:41)
[2017-11-16] MEDS: MULTIVIT/CA CARB/B CMPLX/FA TAB GTB (09:43)
[2017-11-16] MEDS: HEPARIN 1000 UNITS/ML 10 ML INJ CATHETER (15:36)
[2017-11-16] MEDS: INSULIN GLARGINE [LANtus] 3 ML PEN SC (21:59)
[2017-11-17] MEDS: INSULIN ASPART [NOVOLOG] 3 ML PEN SC ×6 (01:20→21:22)
[2017-11-17] MEDS: LEVOTHYROXINE 125 MCG TAB GTB (05:13)
[2017-11-17] MEDS: AMLODIPINE 10 MG TAB GTB (09:00)
[2017-11-17] MEDS: MINOXIDIL 2.5 MG TAB GTB (09:00)
[2017-11-17] MEDS: NYSTATIN 30 GM POWDER BTL TOP ×2 (09:00→20:58)
[2017-11-17] MEDS: NYSTATIN 15 GM OINT TOP ×3 (09:00→20:59)
[2017-11-17] MEDS: FLUOCINONIDE 0.05% 15 GM CR TOP ×2 (09:00→20:57)
[2017-11-17] MEDS: BALSAM PERU/CASTOR OIL 60 GM TUBE TOP ×2 (09:00→20:58)
[2017-11-17 09:11] LABS: ADD MAN DIFF? NO; BASOPHIL # 0.1 10^3/ul (0.0-0.1); BASOPHILS % 0.9 % (0.0-2.0); EOSINOPHILS # 0.3 10^3/ul (0.0-0.5); EOSINOPHILS % 3.7 % (0.0-7.0); HEMATOCRIT 34.3 % (37.0-47.0); HEMOGLOBIN 11.1 g/dl (12.0-16.0); LYMPHOCYTES # 1.8 10^3/ul (0.8-2.9); LYMPHOCYTES % 23.3 % (15.0-51.0); MEAN CORPUSCULAR HEMOGLOBIN 31.6 pg (29.0-33.0); MEAN CORPUSCULAR HGB CONC 32.4 g/dl (32.0-37.0); MEAN CORPUSCULAR VOLUME 97.7 fl (82.0-101.0); MEAN PLATELET VOLUME 11.2 fl (7.4-10.4); MONOCYTE # 0.7 10^3/ul (0.3-0.9); MONOCYTES % 9.3 % (0.0-11.0); NEUTROPHIL # 4.9 10^3/ul (1.6-7.5); NEUTROPHILS % 62.5 % (39.0-77.0); PLATELET COUNT 271 10^3/UL (140-415); RED BLOOD COUNT 3.51 10^6/ul (4.20-5.40)
[2017-11-17 09:11] LABS: WHITE BLOOD COUNT 7.8 10^3/ul (4.8-10.8)
[2017-11-17 09:40] LABS: ANION GAP 18 (8-16); BLOOD UREA NITROGEN 57 mg/dl (7-20); CALCIUM 9.5 mg/dl (8.4-10.2); CARBON DIOXIDE 27 mmol/L (21-31); CHLORIDE 97 mmol/L (97-110); CREATININE 3.82 mg/dl (0.44-1.00); GLUCOSE 142 mg/dl (70-220); MAGNESIUM 2.7 mg/dl (1.7-2.5); POTASSIUM 4.5 mmol/L (3.5-5.1); SODIUM 137 mmol/L (135-144)
[2017-11-17] MEDS: RIFAMPIN 300 MG CAP GTB (09:58)
[2017-11-17] MEDS: SEVELAMER CARBONATE 0.8 GM PKT PO ×3 (09:58→20:57)
[2017-11-17] MEDS: MULTIVIT/CA CARB/B CMPLX/FA TAB GTB (09:58)
[2017-11-17] MEDS: LEVETIRACETAM (100 MG/ML) 5ML CUP GTB ×2 (09:59→20:56)
[2017-11-17] MEDS: ASCORBIC ACID 500 MG TAB GTB (09:59)
[2017-11-17] MEDS: RISPERIDONE 0.25 MG TAB GTB (09:59)
[2017-11-17] MEDS: HEPARIN 5,000 UNIT/0.5 ML VIAL SC ×2 (10:02→21:20)
[2017-11-17] MEDS: INSULIN GLARGINE [LANtus] 3 ML PEN SC (21:22)
[2017-11-18] MEDS: INSULIN ASPART [NOVOLOG] 3 ML PEN SC ×6 (01:21→21:30)
[2017-11-18] MEDS: LEVOTHYROXINE 125 MCG TAB GTB (06:32)
[2017-11-18] MEDS: AMLODIPINE 10 MG TAB GTB (07:57)
[2017-11-18] MEDS: HEPARIN 5,000 UNIT/0.5 ML VIAL SC ×2 (08:03→21:31)
[2017-11-18] MEDS: MINOXIDIL 2.5 MG TAB GTB (09:00)
[2017-11-18] MEDS: RIFAMPIN 300 MG CAP GTB (09:13)
[2017-11-18] MEDS: ASCORBIC ACID 500 MG TAB GTB (09:13)
[2017-11-18] MEDS: LEVETIRACETAM (100 MG/ML) 5ML CUP GTB ×2 (09:14→21:17)
[2017-11-18] MEDS: SEVELAMER CARBONATE 0.8 GM PKT PO ×3 (09:14→21:18)
[2017-11-18] MEDS: RISPERIDONE 0.25 MG TAB GTB (09:14)
[2017-11-18] MEDS: NYSTATIN 15 GM OINT TOP ×3 (09:15→21:19)
[2017-11-18] MEDS: FLUOCINONIDE 0.05% 15 GM CR TOP ×2 (09:15→21:19)
[2017-11-18] MEDS: MULTIVIT/CA CARB/B CMPLX/FA TAB GTB (09:15)
[2017-11-18] MEDS: BALSAM PERU/CASTOR OIL 60 GM TUBE TOP ×2 (09:15→21:18)
[2017-11-18] MEDS: NYSTATIN 30 GM POWDER BTL TOP ×2 (09:15→21:18)
[2017-11-18] MEDS: ACETAMINOPHEN 325 MG TAB GTB (18:12)
[2017-11-18] MEDS: INSULIN GLARGINE [LANtus] 3 ML PEN SC (21:34)
[2017-11-19] MEDS: INSULIN ASPART [NOVOLOG] 3 ML PEN SC ×6 (00:47→21:59)
[2017-11-19] MEDS: LEVOTHYROXINE 125 MCG TAB GTB (06:08)
[2017-11-19] MEDS: LEVETIRACETAM (100 MG/ML) 5ML CUP GTB ×2 (09:39→21:55)
[2017-11-19] MEDS: SEVELAMER CARBONATE 0.8 GM PKT PO ×3 (09:40→21:55)
[2017-11-19] MEDS: MULTIVIT/CA CARB/B CMPLX/FA TAB GTB (09:40)
[2017-11-19] MEDS: ASCORBIC ACID 500 MG TAB GTB (09:40)
[2017-11-19] MEDS: RIFAMPIN 300 MG CAP GTB (09:41)
[2017-11-19] MEDS: RISPERIDONE 0.25 MG TAB GTB (09:42)
[2017-11-19] MEDS: MINOXIDIL 2.5 MG TAB GTB (09:44)
[2017-11-19] MEDS: AMLODIPINE 10 MG TAB GTB (09:46)
[2017-11-19] MEDS: NYSTATIN 30 GM POWDER BTL TOP ×2 (09:47→21:55)
[2017-11-19] MEDS: HEPARIN 5,000 UNIT/0.5 ML VIAL SC ×2 (09:59→22:00)
[2017-11-19] MEDS: FLUOCINONIDE 0.05% 15 GM CR TOP ×2 (13:33→21:56)
[2017-11-19] MEDS: NYSTATIN 15 GM OINT TOP ×3 (13:33→21:56)
[2017-11-19] MEDS: BALSAM PERU/CASTOR OIL 60 GM TUBE TOP ×2 (13:33→21:55)
[2017-11-19] MEDS: INSULIN GLARGINE [LANtus] 3 ML PEN SC (21:59)
[2017-11-20] MEDS: INSULIN ASPART [NOVOLOG] 3 ML PEN SC ×5 (01:00→17:00)
[2017-11-20] MEDS: HEPARIN 1000 UNITS/ML 10 ML INJ CATHETER (02:32)
[2017-11-20] MEDS: LEVOTHYROXINE 125 MCG TAB GTB (06:22)
[2017-11-20 09:10] LABS: ADD MAN DIFF? NO
[2017-11-20 09:14] LABS: BASOPHIL # 0.1 10^3/ul (0.0-0.1); BASOPHILS % 0.9 % (0.0-2.0); EOSINOPHILS # 0.4 10^3/ul (0.0-0.5); EOSINOPHILS % 5.8 % (0.0-7.0); HEMATOCRIT 32.2 % (37.0-47.0); HEMOGLOBIN 10.3 g/dl (12.0-16.0); LYMPHOCYTES # 1.5 10^3/ul (0.8-2.9); LYMPHOCYTES % 22.4 % (15.0-51.0); MEAN CORPUSCULAR HEMOGLOBIN 31.2 pg (29.0-33.0); MEAN CORPUSCULAR VOLUME 97.6 fl (82.0-101.0); MEAN PLATELET VOLUME 11.2 fl (7.4-10.4); MONOCYTE # 0.6 10^3/ul (0.3-0.9); MONOCYTES % 8.5 % (0.0-11.0); NEUTROPHIL # 4.2 10^3/ul (1.6-7.5); NEUTROPHILS % 62.1 % (39.0-77.0); PLATELET COUNT 248 10^3/UL (140-415)
[2017-11-20 09:14] LABS: WHITE BLOOD COUNT 6.7 10^3/ul (4.8-10.8)
[2017-11-20 09:34] LABS: ANION GAP 18 (8-16); BLOOD UREA NITROGEN 41 mg/dl (7-20); CALCIUM 9.6 mg/dl (8.4-10.2); CARBON DIOXIDE 24 mmol/L (21-31); CHLORIDE 101 mmol/L (97-110); CREATININE 3.13 mg/dl (0.44-1.00); GLUCOSE 123 mg/dl (70-220); MAGNESIUM 2.5 mg/dl (1.7-2.5); PHOSPHORUS 3.3 mg/dl (2.5-4.9); POTASSIUM 4.5 mmol/L (3.5-5.1); SODIUM 138 mmol/L (135-144)
[2017-11-20] MEDS: LEVETIRACETAM (100 MG/ML) 5ML CUP GTB ×2 (10:18→21:20)
[2017-11-20] MEDS: MULTIVIT/CA CARB/B CMPLX/FA TAB GTB (10:19)
[2017-11-20] MEDS: SEVELAMER CARBONATE 0.8 GM PKT PO ×3 (10:19→21:20)
[2017-11-20] MEDS: ASCORBIC ACID 500 MG TAB GTB (10:20)
[2017-11-20] MEDS: MINOXIDIL 2.5 MG TAB GTB (10:22)
[2017-11-20] MEDS: AMLODIPINE 10 MG TAB GTB (10:23)
[2017-11-20] MEDS: RISPERIDONE 0.25 MG TAB GTB (10:24)
[2017-11-20] MEDS: NYSTATIN 15 GM OINT TOP ×3 (10:25→21:21)
[2017-11-20] MEDS: FLUOCINONIDE 0.05% 15 GM CR TOP ×2 (10:25→21:21)
[2017-11-20] MEDS: BALSAM PERU/CASTOR OIL 60 GM TUBE TOP ×2 (10:25→21:21)
[2017-11-20] MEDS: NYSTATIN 30 GM POWDER BTL TOP ×2 (10:26→21:21)
[2017-11-20] MEDS: HEPARIN 5,000 UNIT/0.5 ML VIAL SC ×2 (10:37→21:32)
[2017-11-20] MEDS: RIFAMPIN 300 MG CAP GTB (10:39)
[2017-11-20] MEDS: INSULIN GLARGINE [LANtus] 3 ML PEN SC (21:30)
[2017-11-21] MEDS: INSULIN ASPART [NOVOLOG] 3 ML PEN SC ×5 (00:03→23:26)
[2017-11-21] MEDS: LEVOTHYROXINE 125 MCG TAB GTB (06:28)
[2017-11-21] MEDS: LEVETIRACETAM (100 MG/ML) 5ML CUP GTB ×2 (09:18→23:18)
[2017-11-21] MEDS: RISPERIDONE 0.25 MG TAB GTB (09:18)
[2017-11-21] MEDS: RIFAMPIN 300 MG CAP GTB (09:18)
[2017-11-21] MEDS: MULTIVIT/CA CARB/B CMPLX/FA TAB GTB (09:18)
[2017-11-21] MEDS: ASCORBIC ACID 500 MG TAB GTB (09:19)
[2017-11-21] MEDS: MINOXIDIL 2.5 MG TAB GTB (09:19)
[2017-11-21] MEDS: SEVELAMER CARBONATE 0.8 GM PKT PO ×3 (09:20→23:29)
[2017-11-21] MEDS: AMLODIPINE 10 MG TAB GTB (09:20)
[2017-11-21] MEDS: NYSTATIN 30 GM POWDER BTL TOP ×2 (09:21→23:28)
[2017-11-21] MEDS: FLUOCINONIDE 0.05% 15 GM CR TOP ×2 (09:21→23:21)
[2017-11-21] MEDS: BALSAM PERU/CASTOR OIL 60 GM TUBE TOP ×2 (09:21→23:28)
[2017-11-21] MEDS: HEPARIN 5,000 UNIT/0.5 ML VIAL SC ×2 (09:22→23:27)
[2017-11-21] MEDS: NYSTATIN 15 GM OINT TOP ×3 (09:25→23:21)
[2017-11-21] MEDS: INSULIN GLARGINE [LANtus] 3 ML PEN SC (23:25)
[2017-11-22] MEDS: INSULIN ASPART [NOVOLOG] 3 ML PEN SC ×3 (07:05→17:31)
[2017-11-22] MEDS: FLUOCINONIDE 0.05% 15 GM CR TOP ×2 (10:10→22:27)
[2017-11-22] MEDS: MULTIVIT/CA CARB/B CMPLX/FA TAB GTB (10:10)
[2017-11-22] MEDS: LEVETIRACETAM (100 MG/ML) 5ML CUP GTB ×2 (10:10→22:26)
[2017-11-22] MEDS: NYSTATIN 30 GM POWDER BTL TOP ×2 (10:10→22:26)
[2017-11-22] MEDS: MINOXIDIL 2.5 MG TAB GTB (10:10)
[2017-11-22] MEDS: HEPARIN 5,000 UNIT/0.5 ML VIAL SC ×2 (10:10→22:28)
[2017-11-22] MEDS: BALSAM PERU/CASTOR OIL 60 GM TUBE TOP ×2 (10:10→22:27)
[2017-11-22] MEDS: LEVOTHYROXINE 125 MCG TAB GTB (10:10)
[2017-11-22] MEDS: NYSTATIN 15 GM OINT TOP ×3 (10:10→22:27)
[2017-11-22] MEDS: RIFAMPIN 300 MG CAP GTB (10:10)
[2017-11-22] MEDS: ASCORBIC ACID 500 MG TAB GTB (10:10)
[2017-11-22] MEDS: RISPERIDONE 0.25 MG TAB GTB (10:10)
[2017-11-22] MEDS: SEVELAMER CARBONATE 0.8 GM PKT PO ×3 (10:10→22:26)
[2017-11-22] MEDS: AMLODIPINE 10 MG TAB GTB (10:10)
[2017-11-22] MEDS: INSULIN GLARGINE [LANtus] 3 ML PEN SC (22:41)
[2017-11-23] MEDS: INSULIN ASPART [NOVOLOG] 3 ML PEN SC ×4 (00:46→17:22)
[2017-11-23] MEDS: LEVOTHYROXINE 125 MCG TAB GTB (06:59)
[2017-11-23] MEDS: MULTIVIT/CA CARB/B CMPLX/FA TAB GTB (09:00)
[2017-11-23] MEDS: RISPERIDONE 0.25 MG TAB GTB (09:55)
[2017-11-23] MEDS: RIFAMPIN 300 MG CAP GTB (09:55)
[2017-11-23] MEDS: SEVELAMER CARBONATE 0.8 GM PKT PO ×3 (09:55→22:20)
[2017-11-23] MEDS: LEVETIRACETAM (100 MG/ML) 5ML CUP GTB ×2 (09:55→22:20)
[2017-11-23] MEDS: MINOXIDIL 2.5 MG TAB GTB (09:56)
[2017-11-23] MEDS: ASCORBIC ACID 500 MG TAB GTB (09:56)
[2017-11-23] MEDS: FLUOCINONIDE 0.05% 15 GM CR TOP ×2 (09:56→22:21)
[2017-11-23] MEDS: AMLODIPINE 10 MG TAB GTB (09:56)
[2017-11-23] MEDS: NYSTATIN 15 GM OINT TOP ×3 (09:57→22:21)
[2017-11-23] MEDS: NYSTATIN 30 GM POWDER BTL TOP ×2 (09:57→22:20)
[2017-11-23] MEDS: BALSAM PERU/CASTOR OIL 60 GM TUBE TOP ×2 (09:57→22:20)
[2017-11-23] MEDS: HEPARIN 5,000 UNIT/0.5 ML VIAL SC ×2 (10:22→22:23)
[2017-11-23] MEDS: HYDROCODONE/APAP (10/325) TAB PO (12:17)
[2017-11-23] MEDS: INSULIN GLARGINE [LANtus] 3 ML PEN SC (22:22)
[2017-11-24] MEDS: INSULIN ASPART [NOVOLOG] 3 ML PEN SC ×4 (01:04→17:50)
[2017-11-24] MEDS: LEVOTHYROXINE 125 MCG TAB GTB (06:21)
[2017-11-24] MEDS: MINOXIDIL 2.5 MG TAB GTB (09:00)
[2017-11-24] MEDS: AMLODIPINE 10 MG TAB GTB (09:00)
[2017-11-24] MEDS: RISPERIDONE 0.25 MG TAB GTB (09:52)
[2017-11-24] MEDS: SEVELAMER CARBONATE 0.8 GM PKT PO ×3 (09:52→20:49)
[2017-11-24] MEDS: RIFAMPIN 300 MG CAP GTB (09:52)
[2017-11-24] MEDS: ASCORBIC ACID 500 MG TAB GTB (09:52)
[2017-11-24] MEDS: LEVETIRACETAM (100 MG/ML) 5ML CUP GTB ×2 (09:52→20:48)
[2017-11-24] MEDS: MULTIVIT/CA CARB/B CMPLX/FA TAB GTB (09:52)
[2017-11-24] MEDS: HEPARIN 5,000 UNIT/0.5 ML VIAL SC ×2 (09:59→20:51)
[2017-11-24] MEDS: NYSTATIN 15 GM OINT TOP ×3 (10:00→20:48)
[2017-11-24] MEDS: FLUOCINONIDE 0.05% 15 GM CR TOP ×2 (10:01→20:48)
[2017-11-24] MEDS: BALSAM PERU/CASTOR OIL 60 GM TUBE TOP ×2 (10:01→20:48)
[2017-11-24] MEDS: NYSTATIN 30 GM POWDER BTL TOP ×2 (10:01→20:48)
[2017-11-24] MEDS: INSULIN GLARGINE [LANtus] 3 ML PEN SC (20:50)
[2017-11-25] MEDS: INSULIN ASPART [NOVOLOG] 3 ML PEN SC ×4 (06:05→18:00)
[2017-11-25] MEDS: LEVOTHYROXINE 125 MCG TAB GTB (06:12)
[2017-11-25 08:42] LABS: ADD MAN DIFF? NO
[2017-11-25 08:50] LABS: WHITE BLOOD COUNT 5.8 10^3/ul (4.8-10.8)
[2017-11-25 08:50] LABS: BASOPHIL # 0.1 10^3/ul (0.0-0.1); BASOPHILS % 0.9 % (0.0-2.0); EOSINOPHILS # 0.2 10^3/ul (0.0-0.5); HEMATOCRIT 30.2 % (37.0-47.0); LYMPHOCYTES # 1.4 10^3/ul (0.8-2.9); LYMPHOCYTES % 23.3 % (15.0-51.0); MEAN CORPUSCULAR HEMOGLOBIN 31.6 pg (29.0-33.0); MEAN CORPUSCULAR HGB CONC 33.1 g/dl (32.0-37.0); MEAN CORPUSCULAR VOLUME 95.6 fl (82.0-101.0); MEAN PLATELET VOLUME 11.2 fl (7.4-10.4); MONOCYTE # 0.6 10^3/ul (0.3-0.9); MONOCYTES % 10.5 % (0.0-11.0); NEUTROPHIL # 3.5 10^3/ul (1.6-7.5); PLATELET COUNT 249 10^3/UL (140-415); RED BLOOD COUNT 3.16 10^6/ul (4.20-5.40); RED CELL DISTRIBUTION WIDTH 13.8 % (11.5-14.5)
[2017-11-25 09:11] LABS: ANION GAP 16 (8-16); BLOOD UREA NITROGEN 43 mg/dl (7-20); CALCIUM 10.1 mg/dl (8.4-10.2); CARBON DIOXIDE 30 mmol/L (21-31); CHLORIDE 98 mmol/L (97-110); CREATININE 3.15 mg/dl (0.44-1.00); GLUCOSE 125 mg/dl (70-220); MAGNESIUM 2.5 mg/dl (1.7-2.5); PHOSPHORUS 2.9 mg/dl (2.5-4.9); POTASSIUM 4.5 mmol/L (3.5-5.1); SODIUM 139 mmol/L (135-144)
[2017-11-25] MEDS: LEVETIRACETAM (100 MG/ML) 5ML CUP GTB ×2 (09:27→21:12)
[2017-11-25] MEDS: SEVELAMER CARBONATE 0.8 GM PKT PO ×3 (09:27→21:13)
[2017-11-25] MEDS: ASCORBIC ACID 500 MG TAB GTB (09:28)
[2017-11-25] MEDS: MINOXIDIL 2.5 MG TAB GTB (09:29)
[2017-11-25] MEDS: RISPERIDONE 0.25 MG TAB GTB (09:29)
[2017-11-25] MEDS: RIFAMPIN 300 MG CAP GTB (09:29)
[2017-11-25] MEDS: MULTIVIT/CA CARB/B CMPLX/FA TAB GTB (09:29)
[2017-11-25] MEDS: NYSTATIN 30 GM POWDER BTL TOP ×2 (09:30→21:13)
[2017-11-25] MEDS: BALSAM PERU/CASTOR OIL 60 GM TUBE TOP ×2 (09:30→21:13)
[2017-11-25] MEDS: NYSTATIN 15 GM OINT TOP ×3 (09:30→21:13)
[2017-11-25] MEDS: AMLODIPINE 10 MG TAB GTB (09:30)
[2017-11-25] MEDS: FLUOCINONIDE 0.05% 15 GM CR TOP ×2 (09:30→21:13)
[2017-11-25] MEDS: HEPARIN 5,000 UNIT/0.5 ML VIAL SC ×2 (09:34→21:15)
[2017-11-25] MEDS: INSULIN GLARGINE [LANtus] 3 ML PEN SC (21:14)
[2017-11-26] MEDS: INSULIN ASPART [NOVOLOG] 3 ML PEN SC ×4 (06:00→17:31)
[2017-11-26] MEDS: LEVOTHYROXINE 125 MCG TAB GTB (06:04)
[2017-11-26] MEDS: LEVETIRACETAM (100 MG/ML) 5ML CUP GTB ×2 (08:27→20:27)
[2017-11-26] MEDS: RIFAMPIN 300 MG CAP GTB (08:27)
[2017-11-26] MEDS: ASCORBIC ACID 500 MG TAB GTB (08:28)
[2017-11-26] MEDS: MULTIVIT/CA CARB/B CMPLX/FA TAB GTB (08:28)
[2017-11-26] MEDS: RISPERIDONE 0.25 MG TAB GTB (08:28)
[2017-11-26] MEDS: SEVELAMER CARBONATE 0.8 GM PKT PO ×3 (08:29→20:27)
[2017-11-26] MEDS: NYSTATIN 15 GM OINT TOP ×3 (08:46→20:27)
[2017-11-26] MEDS: NYSTATIN 30 GM POWDER BTL TOP ×2 (08:46→20:27)
[2017-11-26] MEDS: BALSAM PERU/CASTOR OIL 60 GM TUBE TOP ×2 (08:46→20:28)
[2017-11-26] MEDS: FLUOCINONIDE 0.05% 15 GM CR TOP ×2 (08:46→20:27)
[2017-11-26] MEDS: HEPARIN 5,000 UNIT/0.5 ML VIAL SC ×2 (08:50→20:37)
[2017-11-26] MEDS: MINOXIDIL 2.5 MG TAB GTB (09:00)
[2017-11-26] MEDS: AMLODIPINE 10 MG TAB GTB (09:00)
[2017-11-26] MEDS: INSULIN GLARGINE [LANtus] 3 ML PEN SC (20:37)
[2017-11-27] MEDS: INSULIN ASPART [NOVOLOG] 3 ML PEN SC ×4 (01:23→18:00)
[2017-11-27] MEDS: LEVOTHYROXINE 125 MCG TAB GTB (07:02)
[2017-11-27] MEDS: LEVETIRACETAM (100 MG/ML) 5ML CUP GTB ×2 (08:26→21:05)
[2017-11-27] MEDS: SEVELAMER CARBONATE 0.8 GM PKT PO ×3 (08:27→21:05)
[2017-11-27] MEDS: MULTIVIT/CA CARB/B CMPLX/FA TAB GTB (08:27)
[2017-11-27] MEDS: RIFAMPIN 300 MG CAP GTB (08:27)
[2017-11-27] MEDS: MINOXIDIL 2.5 MG TAB GTB (08:27)
[2017-11-27] MEDS: RISPERIDONE 0.25 MG TAB GTB (08:27)
[2017-11-27] MEDS: ASCORBIC ACID 500 MG TAB GTB (08:27)
[2017-11-27] MEDS: AMLODIPINE 10 MG TAB GTB (08:27)
[2017-11-27] MEDS: HEPARIN 5,000 UNIT/0.5 ML VIAL SC ×2 (08:39→21:35)
[2017-11-27] MEDS: NYSTATIN 30 GM POWDER BTL TOP ×2 (08:42→21:06)
[2017-11-27] MEDS: NYSTATIN 15 GM OINT TOP ×3 (08:42→21:08)
[2017-11-27] MEDS: FLUOCINONIDE 0.05% 15 GM CR TOP ×2 (08:42→21:07)
[2017-11-27] MEDS: BALSAM PERU/CASTOR OIL 60 GM TUBE TOP ×2 (08:42→21:06)
[2017-11-27] MEDS: INSULIN GLARGINE [LANtus] 3 ML PEN SC (21:36)
[2017-11-28] MEDS: INSULIN ASPART [NOVOLOG] 3 ML PEN SC ×4 (01:11→17:54)
[2017-11-28] MEDS: LEVOTHYROXINE 125 MCG TAB GTB (06:06)
[2017-11-28] MEDS: RISPERIDONE 0.25 MG TAB GTB (08:23)
[2017-11-28] MEDS: MINOXIDIL 2.5 MG TAB GTB (08:23)
[2017-11-28] MEDS: AMLODIPINE 10 MG TAB GTB (08:23)
[2017-11-28] MEDS: NYSTATIN 30 GM POWDER BTL TOP ×2 (08:24→21:36)
[2017-11-28] MEDS: MULTIVIT/CA CARB/B CMPLX/FA TAB GTB (08:24)
[2017-11-28] MEDS: SEVELAMER CARBONATE 0.8 GM PKT PO ×3 (08:24→21:35)
[2017-11-28] MEDS: BALSAM PERU/CASTOR OIL 60 GM TUBE TOP ×2 (08:24→21:36)
[2017-11-28] MEDS: ASCORBIC ACID 500 MG TAB GTB (08:24)
[2017-11-28] MEDS: NYSTATIN 15 GM OINT TOP ×3 (08:24→21:35)
[2017-11-28] MEDS: LEVETIRACETAM (100 MG/ML) 5ML CUP GTB ×2 (08:24→21:35)
[2017-11-28] MEDS: FLUOCINONIDE 0.05% 15 GM CR TOP ×2 (08:24→21:36)
[2017-11-28] MEDS: RIFAMPIN 300 MG CAP GTB (08:24)
[2017-11-28] MEDS: HEPARIN 5,000 UNIT/0.5 ML VIAL SC ×2 (08:47→21:47)
[2017-11-28] MEDS: INSULIN GLARGINE [LANtus] 3 ML PEN SC (21:48)
[2017-11-29] MEDS: INSULIN ASPART [NOVOLOG] 3 ML PEN SC ×4 (00:42→18:00)
[2017-11-29] MEDS: LEVOTHYROXINE 125 MCG TAB GTB (05:55)
[2017-11-29] MEDS: MULTIVIT/CA CARB/B CMPLX/FA TAB GTB (09:46)
[2017-11-29] MEDS: ASCORBIC ACID 500 MG TAB GTB (09:46)
[2017-11-29] MEDS: LEVETIRACETAM (100 MG/ML) 5ML CUP GTB ×2 (09:46→20:28)
[2017-11-29] MEDS: RIFAMPIN 300 MG CAP GTB (09:46)
[2017-11-29] MEDS: SEVELAMER CARBONATE 0.8 GM PKT PO ×3 (09:47→22:49)
[2017-11-29] MEDS: FLUOCINONIDE 0.05% 15 GM CR TOP ×2 (09:48→20:29)
[2017-11-29] MEDS: BALSAM PERU/CASTOR OIL 60 GM TUBE TOP ×2 (09:48→20:29)
[2017-11-29] MEDS: NYSTATIN 30 GM POWDER BTL TOP ×2 (09:49→20:28)
[2017-11-29] MEDS: NYSTATIN 15 GM OINT TOP ×3 (09:50→20:29)
[2017-11-29] MEDS: RISPERIDONE 0.25 MG TAB GTB (09:51)
[2017-11-29] MEDS: AMLODIPINE 10 MG TAB GTB (09:55)
[2017-11-29] MEDS: HEPARIN 5,000 UNIT/0.5 ML VIAL SC ×2 (10:17→20:38)
[2017-11-29] MEDS: MINOXIDIL 2.5 MG TAB GTB (11:03)
[2017-11-29] MEDS: INSULIN GLARGINE [LANtus] 3 ML PEN SC (20:39)
[2017-11-30] MEDS: INSULIN ASPART [NOVOLOG] 3 ML PEN SC ×4 (00:37→17:49)
[2017-11-30] MEDS: LEVOTHYROXINE 125 MCG TAB GTB (06:37)
[2017-11-30] MEDS: ASCORBIC ACID 500 MG TAB GTB (08:52)
[2017-11-30] MEDS: SEVELAMER CARBONATE 0.8 GM PKT PO ×3 (08:52→21:13)
[2017-11-30] MEDS: LEVETIRACETAM (100 MG/ML) 5ML CUP GTB ×2 (08:52→21:13)
[2017-11-30] MEDS: MULTIVIT/CA CARB/B CMPLX/FA TAB GTB (08:52)
[2017-11-30] MEDS: AMLODIPINE 10 MG TAB GTB (08:52)
[2017-11-30] MEDS: RIFAMPIN 300 MG CAP GTB (08:53)
[2017-11-30] MEDS: RISPERIDONE 0.25 MG TAB GTB (08:53)
[2017-11-30] MEDS: MINOXIDIL 2.5 MG TAB GTB (08:53)
[2017-11-30] MEDS: NYSTATIN 15 GM OINT TOP ×3 (08:55→21:14)
[2017-11-30] MEDS: BALSAM PERU/CASTOR OIL 60 GM TUBE TOP ×2 (08:55→21:14)
[2017-11-30] MEDS: NYSTATIN 30 GM POWDER BTL TOP ×2 (08:55→21:14)
[2017-11-30] MEDS: FLUOCINONIDE 0.05% 15 GM CR TOP ×2 (08:55→21:15)
[2017-11-30] MEDS: HEPARIN 5,000 UNIT/0.5 ML VIAL SC ×2 (09:13→21:33)
[2017-11-30] MEDS: INSULIN GLARGINE [LANtus] 3 ML PEN SC (21:33)
[2017-12-01] MEDS: INSULIN ASPART [NOVOLOG] 3 ML PEN SC ×5 (01:20→17:27)
[2017-12-01 08:26] LABS: ADD MAN DIFF? NO
[2017-12-01 08:32] LABS: WHITE BLOOD COUNT 9.4 10^3/ul (4.8-10.8)
[2017-12-01 08:32] LABS: BASOPHIL # 0.1 10^3/ul (0.0-0.1); BASOPHILS % 0.6 % (0.0-2.0); EOSINOPHILS # 0.5 10^3/ul (0.0-0.5); HEMATOCRIT 30.6 % (37.0-47.0); HEMOGLOBIN 10.1 g/dl (12.0-16.0); LYMPHOCYTES # 2.3 10^3/ul (0.8-2.9); LYMPHOCYTES % 24.7 % (15.0-51.0); MEAN CORPUSCULAR HEMOGLOBIN 31.4 pg (29.0-33.0); MEAN PLATELET VOLUME 11.4 fl (7.4-10.4); MONOCYTE # 0.8 10^3/ul (0.3-0.9); MONOCYTES % 8.2 % (0.0-11.0); NEUTROPHIL # 5.7 10^3/ul (1.6-7.5); NEUTROPHILS % 60.9 % (39.0-77.0); PLATELET COUNT 230 10^3/UL (140-415); RED BLOOD COUNT 3.22 10^6/ul (4.20-5.40); RED CELL DISTRIBUTION WIDTH 13.8 % (11.5-14.5)
[2017-12-01] MEDS: AMLODIPINE 10 MG TAB GTB (09:00)
[2017-12-01] MEDS: MINOXIDIL 2.5 MG TAB GTB (09:00)
[2017-12-01 09:02] LABS: ANION GAP 22 (8-16); BLOOD UREA NITROGEN 102 mg/dl (7-20); CALCIUM 10.4 mg/dl (8.4-10.2); CARBON DIOXIDE 24 mmol/L (21-31); CHLORIDE 88 mmol/L (97-110); CREATININE 5.71 mg/dl (0.44-1.00); GLUCOSE 178 mg/dl (70-220); MAGNESIUM 3.1 mg/dl (1.7-2.5); PHOSPHORUS 3.7 mg/dl (2.5-4.9); POTASSIUM 4.7 mmol/L (3.5-5.1); SODIUM 129 mmol/L (135-144)
[2017-12-01] MEDS: LEVETIRACETAM (100 MG/ML) 5ML CUP GTB ×2 (09:22→21:03)
[2017-12-01] MEDS: RIFAMPIN 300 MG CAP GTB (09:22)
[2017-12-01] MEDS: RISPERIDONE 0.25 MG TAB GTB (09:22)
[2017-12-01] MEDS: LEVOTHYROXINE 125 MCG TAB GTB (09:22)
[2017-12-01] MEDS: MULTIVIT/CA CARB/B CMPLX/FA TAB GTB (09:23)
[2017-12-01] MEDS: BALSAM PERU/CASTOR OIL 60 GM TUBE TOP ×2 (09:24→21:04)
[2017-12-01] MEDS: SEVELAMER CARBONATE 0.8 GM PKT PO ×3 (09:24→21:03)
[2017-12-01] MEDS: NYSTATIN 15 GM OINT TOP ×3 (09:24→21:04)
[2017-12-01] MEDS: ASCORBIC ACID 500 MG TAB GTB (09:24)
[2017-12-01] MEDS: FLUOCINONIDE 0.05% 15 GM CR TOP ×2 (09:25→21:04)
[2017-12-01] MEDS: NYSTATIN 30 GM POWDER BTL TOP ×2 (09:25→21:04)
[2017-12-01] MEDS: HEPARIN 5,000 UNIT/0.5 ML VIAL SC ×2 (09:27→21:07)
[2017-12-01] MEDS: INSULIN GLARGINE [LANtus] 3 ML PEN SC (21:08)
[2017-12-02] MEDS: INSULIN ASPART [NOVOLOG] 3 ML PEN SC ×4 (00:55→17:23)
[2017-12-02] MEDS: LEVOTHYROXINE 125 MCG TAB GTB (06:46)
[2017-12-02] MEDS: HEPARIN 5,000 UNIT/0.5 ML VIAL SC ×2 (09:26→21:54)
[2017-12-02] MEDS: LEVETIRACETAM (100 MG/ML) 5ML CUP GTB ×2 (09:27→21:38)
[2017-12-02] MEDS: ASCORBIC ACID 500 MG TAB GTB (09:27)
[2017-12-02] MEDS: RIFAMPIN 300 MG CAP GTB (09:27)
[2017-12-02] MEDS: MULTIVIT/CA CARB/B CMPLX/FA TAB GTB (09:27)
[2017-12-02] MEDS: BALSAM PERU/CASTOR OIL 60 GM TUBE TOP ×2 (09:27→21:58)
[2017-12-02] MEDS: SEVELAMER CARBONATE 0.8 GM PKT PO ×2 (09:27→12:32)
[2017-12-02] MEDS: RISPERIDONE 0.25 MG TAB GTB (09:27)
[2017-12-02] MEDS: FLUOCINONIDE 0.05% 15 GM CR TOP ×2 (09:28→22:00)
[2017-12-02] MEDS: AMLODIPINE 10 MG TAB GTB (09:28)
[2017-12-02] MEDS: NYSTATIN 15 GM OINT TOP ×3 (09:28→21:58)
[2017-12-02] MEDS: NYSTATIN 30 GM POWDER BTL TOP ×2 (09:28→21:59)
[2017-12-02] MEDS: MINOXIDIL 2.5 MG TAB GTB (09:29)
[2017-12-02] MEDS: INSULIN GLARGINE [LANtus] 3 ML PEN SC (21:49)
[2017-12-03] MEDS: SEVELAMER CARBONATE 0.8 GM PKT PO ×4 (00:26→20:44)
[2017-12-03] MEDS: INSULIN ASPART [NOVOLOG] 3 ML PEN SC ×4 (06:04→18:18)
[2017-12-03] MEDS: LEVOTHYROXINE 125 MCG TAB GTB (06:49)
[2017-12-03] MEDS: LEVETIRACETAM (100 MG/ML) 5ML CUP GTB ×2 (08:24→20:43)
[2017-12-03] MEDS: MULTIVIT/CA CARB/B CMPLX/FA TAB GTB (08:25)
[2017-12-03] MEDS: ASCORBIC ACID 500 MG TAB GTB (08:25)
[2017-12-03] MEDS: MINOXIDIL 2.5 MG TAB GTB (08:25)
[2017-12-03] MEDS: RIFAMPIN 300 MG CAP GTB (08:25)
[2017-12-03] MEDS: RISPERIDONE 0.25 MG TAB GTB (08:25)
[2017-12-03] MEDS: AMLODIPINE 10 MG TAB GTB (08:25)
[2017-12-03] MEDS: NYSTATIN 30 GM POWDER BTL TOP ×2 (08:26→20:43)
[2017-12-03] MEDS: FLUOCINONIDE 0.05% 15 GM CR TOP ×2 (08:26→20:44)
[2017-12-03] MEDS: NYSTATIN 15 GM OINT TOP ×3 (08:26→20:44)
[2017-12-03] MEDS: BALSAM PERU/CASTOR OIL 60 GM TUBE TOP ×2 (08:27→20:45)
[2017-12-03 08:45] LABS: ADD MAN DIFF? NO
[2017-12-03 08:51] LABS: WHITE BLOOD COUNT 8.7 10^3/ul (4.8-10.8)
[2017-12-03 08:51] LABS: BASOPHIL # 0.1 10^3/ul (0.0-0.1); BASOPHILS % 0.7 % (0.0-2.0); EOSINOPHILS # 0.4 10^3/ul (0.0-0.5); EOSINOPHILS % 4.8 % (0.0-7.0); HEMATOCRIT 28.5 % (37.0-47.0); HEMOGLOBIN 9.6 g/dl (12.0-16.0); LYMPHOCYTES # 2.4 10^3/ul (0.8-2.9); LYMPHOCYTES % 27.7 % (15.0-51.0); MEAN CORPUSCULAR HEMOGLOBIN 32.1 pg (29.0-33.0); MEAN CORPUSCULAR HGB CONC 33.7 g/dl (32.0-37.0); MEAN CORPUSCULAR VOLUME 95.3 fl (82.0-101.0); MEAN PLATELET VOLUME 11.4 fl (7.4-10.4); MONOCYTES % 11.1 % (0.0-11.0); NEUTROPHIL # 4.8 10^3/ul (1.6-7.5); NEUTROPHILS % 55.1 % (39.0-77.0); PLATELET COUNT 202 10^3/UL (140-415); RED BLOOD COUNT 2.99 10^6/ul (4.20-5.40); RED CELL DISTRIBUTION WIDTH 13.9 % (11.5-14.5)
[2017-12-03 09:19] LABS: ANION GAP 17 (8-16); BLOOD UREA NITROGEN 78 mg/dl (7-20); CALCIUM 10.1 mg/dl (8.4-10.2); CARBON DIOXIDE 26 mmol/L (21-31); CHLORIDE 93 mmol/L (97-110); CREATININE 4.59 mg/dl (0.44-1.00); GLUCOSE 131 mg/dl (70-220); MAGNESIUM 2.9 mg/dl (1.7-2.5); PHOSPHORUS 3.3 mg/dl (2.5-4.9); POTASSIUM 4.2 mmol/L (3.5-5.1); SODIUM 132 mmol/L (135-144)
[2017-12-03] MEDS: HEPARIN 5,000 UNIT/0.5 ML VIAL SC ×2 (09:28→20:48)
[2017-12-03] MEDS: HEPARIN 1000 UNITS/ML 10 ML INJ CATHETER (13:42)
[2017-12-03] MEDS: INSULIN GLARGINE [LANtus] 3 ML PEN SC (20:48)
[2017-12-04] MEDS: LEVOTHYROXINE 125 MCG TAB GTB (05:52)
[2017-12-04] MEDS: INSULIN ASPART [NOVOLOG] 3 ML PEN SC ×4 (05:52→17:57)
[2017-12-04] MEDS: RIFAMPIN 300 MG CAP GTB (08:40)
[2017-12-04] MEDS: RISPERIDONE 0.25 MG TAB GTB (08:40)
[2017-12-04] MEDS: MINOXIDIL 2.5 MG TAB GTB (08:41)
[2017-12-04] MEDS: NYSTATIN 15 GM OINT TOP ×3 (08:41→20:18)
[2017-12-04] MEDS: ASCORBIC ACID 500 MG TAB GTB (08:41)
[2017-12-04] MEDS: SEVELAMER CARBONATE 0.8 GM PKT PO ×3 (08:41→20:18)
[2017-12-04] MEDS: AMLODIPINE 10 MG TAB GTB (08:41)
[2017-12-04] MEDS: LEVETIRACETAM (100 MG/ML) 5ML CUP GTB ×2 (08:41→20:17)
[2017-12-04] MEDS: MULTIVIT/CA CARB/B CMPLX/FA TAB GTB (08:41)
[2017-12-04] MEDS: NYSTATIN 30 GM POWDER BTL TOP ×2 (08:42→20:18)
[2017-12-04] MEDS: BALSAM PERU/CASTOR OIL 60 GM TUBE TOP ×2 (08:42→20:18)
[2017-12-04] MEDS: FLUOCINONIDE 0.05% 15 GM CR TOP ×2 (08:42→20:18)
[2017-12-04] MEDS: HEPARIN 5,000 UNIT/0.5 ML VIAL SC ×2 (08:59→20:32)
[2017-12-04] MEDS: INSULIN GLARGINE [LANtus] 3 ML PEN SC (20:32)
[2017-12-05] MEDS: INSULIN ASPART [NOVOLOG] 3 ML PEN SC ×4 (01:08→17:41)
[2017-12-05] MEDS: LEVOTHYROXINE 125 MCG TAB GTB (05:22)
[2017-12-05] MEDS: SEVELAMER CARBONATE 0.8 GM PKT PO ×3 (09:03→21:40)
[2017-12-05] MEDS: RIFAMPIN 300 MG CAP GTB (09:03)
[2017-12-05] MEDS: LEVETIRACETAM (100 MG/ML) 5ML CUP GTB ×2 (09:03→21:40)
[2017-12-05] MEDS: MULTIVIT/CA CARB/B CMPLX/FA TAB GTB (09:03)
[2017-12-05] MEDS: RISPERIDONE 0.25 MG TAB GTB (09:03)
[2017-12-05] MEDS: FLUOCINONIDE 0.05% 15 GM CR TOP ×2 (09:04→21:40)
[2017-12-05] MEDS: NYSTATIN 15 GM OINT TOP ×3 (09:04→21:40)
[2017-12-05] MEDS: AMLODIPINE 10 MG TAB GTB (09:04)
[2017-12-05] MEDS: MINOXIDIL 2.5 MG TAB GTB (09:04)
[2017-12-05] MEDS: NYSTATIN 30 GM POWDER BTL TOP ×2 (09:04→21:40)
[2017-12-05] MEDS: BALSAM PERU/CASTOR OIL 60 GM TUBE TOP ×2 (09:05→21:40)
[2017-12-05] MEDS: ASCORBIC ACID 500 MG TAB GTB (09:20)
[2017-12-05] MEDS: HEPARIN 5,000 UNIT/0.5 ML VIAL SC ×2 (09:20→21:53)
[2017-12-05 09:57] LABS: ANION GAP 17 (8-16); BLOOD UREA NITROGEN 71 mg/dl (7-20); CALCIUM 10.1 mg/dl (8.4-10.2); CARBON DIOXIDE 23 mmol/L (21-31); CHLORIDE 102 mmol/L (97-110); CREATININE 3.98 mg/dl (0.44-1.00); GLUCOSE 153 mg/dl (70-220); MAGNESIUM 2.8 mg/dl (1.7-2.5); PHOSPHORUS 3.4 mg/dl (2.5-4.9); POTASSIUM 4.2 mmol/L (3.5-5.1); SODIUM 138 mmol/L (135-144)
[2017-12-05] MEDS: HEPARIN 1000 UNITS/ML 10 ML INJ CATHETER (20:12)
[2017-12-05] MEDS: INSULIN GLARGINE [LANtus] 3 ML PEN SC (21:52)
[2017-12-06] MEDS: INSULIN ASPART [NOVOLOG] 3 ML PEN SC ×4 (01:04→17:48)
[2017-12-06] MEDS: LEVOTHYROXINE 125 MCG TAB GTB (06:01)
[2017-12-06] MEDS: FLUOCINONIDE 0.05% 15 GM CR TOP ×2 (09:00→21:20)
[2017-12-06] MEDS: RISPERIDONE 0.25 MG TAB GTB (10:10)
[2017-12-06] MEDS: MULTIVIT/CA CARB/B CMPLX/FA TAB GTB (10:10)
[2017-12-06] MEDS: SEVELAMER CARBONATE 0.8 GM PKT PO ×3 (10:10→21:20)
[2017-12-06] MEDS: LEVETIRACETAM (100 MG/ML) 5ML CUP GTB ×2 (10:10→21:20)
[2017-12-06] MEDS: AMLODIPINE 10 MG TAB GTB (10:11)
[2017-12-06] MEDS: RIFAMPIN 300 MG CAP GTB (10:11)
[2017-12-06] MEDS: MINOXIDIL 2.5 MG TAB GTB (10:12)
[2017-12-06] MEDS: ASCORBIC ACID 500 MG TAB GTB (10:12)
[2017-12-06] MEDS: HEPARIN 5,000 UNIT/0.5 ML VIAL SC ×2 (10:46→21:28)
[2017-12-06] MEDS: NYSTATIN 15 GM OINT TOP ×3 (13:00→21:20)
[2017-12-06] MEDS: NYSTATIN 30 GM POWDER BTL TOP ×2 (13:58→21:20)
[2017-12-06] MEDS: BALSAM PERU/CASTOR OIL 60 GM TUBE TOP ×2 (14:03→21:20)
[2017-12-06] MEDS: INSULIN GLARGINE [LANtus] 3 ML PEN SC (21:28)
[2017-12-07] MEDS: INSULIN ASPART [NOVOLOG] 3 ML PEN SC ×4 (06:00→18:40)
[2017-12-07] MEDS: LEVOTHYROXINE 125 MCG TAB GTB (06:12)
[2017-12-07] MEDS: FLUOCINONIDE 0.05% 15 GM CR TOP ×2 (09:00→21:39)
[2017-12-07] MEDS: RIFAMPIN 300 MG CAP GTB (09:55)
[2017-12-07] MEDS: MINOXIDIL 2.5 MG TAB GTB (09:56)
[2017-12-07] MEDS: ASCORBIC ACID 500 MG TAB GTB (09:56)
[2017-12-07] MEDS: AMLODIPINE 10 MG TAB GTB (09:56)
[2017-12-07] MEDS: RISPERIDONE 0.25 MG TAB GTB (09:56)
[2017-12-07] MEDS: MULTIVIT/CA CARB/B CMPLX/FA TAB GTB (09:56)
[2017-12-07] MEDS: LEVETIRACETAM (100 MG/ML) 5ML CUP GTB ×2 (09:57→21:36)
[2017-12-07] MEDS: SEVELAMER CARBONATE 0.8 GM PKT PO ×3 (09:57→21:36)
[2017-12-07] MEDS: HEPARIN 5,000 UNIT/0.5 ML VIAL SC ×2 (10:00→21:39)
[2017-12-07] MEDS: NYSTATIN 30 GM POWDER BTL TOP ×2 (12:35→21:40)
[2017-12-07] MEDS: NYSTATIN 15 GM OINT TOP ×3 (12:35→21:39)
[2017-12-07] MEDS: BALSAM PERU/CASTOR OIL 60 GM TUBE TOP ×2 (12:35→21:40)
[2017-12-07] MEDS: INSULIN GLARGINE [LANtus] 3 ML PEN SC (21:39)
[2017-12-08] MEDS: INSULIN ASPART [NOVOLOG] 3 ML PEN SC ×4 (00:15→17:36)
[2017-12-08] MEDS: LEVOTHYROXINE 125 MCG TAB GTB (06:22)
[2017-12-08] MEDS: AMLODIPINE 10 MG TAB GTB ×2 (09:00→09:27)
[2017-12-08] MEDS: MINOXIDIL 2.5 MG TAB GTB ×2 (09:00→09:27)
[2017-12-08] MEDS: SEVELAMER CARBONATE 0.8 GM PKT PO ×3 (09:16→22:30)
[2017-12-08] MEDS: RIFAMPIN 300 MG CAP GTB (09:16)
[2017-12-08] MEDS: LEVETIRACETAM (100 MG/ML) 5ML CUP GTB ×2 (09:16→22:02)
[2017-12-08] MEDS: HEPARIN 5,000 UNIT/0.5 ML VIAL SC ×2 (09:16→22:06)
[2017-12-08] MEDS: ASCORBIC ACID 500 MG TAB GTB (09:17)
[2017-12-08] MEDS: RISPERIDONE 0.25 MG TAB GTB (09:17)
[2017-12-08] MEDS: MULTIVIT/CA CARB/B CMPLX/FA TAB GTB (09:18)
[2017-12-08] MEDS: NYSTATIN 30 GM POWDER BTL TOP ×2 (09:27→22:02)
[2017-12-08] MEDS: BALSAM PERU/CASTOR OIL 60 GM TUBE TOP ×2 (09:27→22:02)
[2017-12-08] MEDS: FLUOCINONIDE 0.05% 15 GM CR TOP ×2 (09:27→22:03)
[2017-12-08] MEDS: NYSTATIN 15 GM OINT TOP ×3 (09:27→22:03)
[2017-12-08] MEDS: ALBUMIN HUMAN 25% 100 ML IV ×2 (13:59→15:04)
[2017-12-08] MEDS: HEPARIN 1000 UNITS/ML 10 ML INJ CATHETER (16:44)
[2017-12-08] MEDS: INSULIN GLARGINE [LANtus] 3 ML PEN SC (22:13)
[2017-12-09] MEDS: INSULIN ASPART [NOVOLOG] 3 ML PEN SC ×4 (00:55→17:33)
[2017-12-09] MEDS: LEVOTHYROXINE 125 MCG TAB GTB (06:35)
[2017-12-09 07:53] LABS: ADD MAN DIFF? NO
[2017-12-09 07:54] LABS: BASOPHIL # 0.1 10^3/ul (0.0-0.1); BASOPHILS % 0.7 % (0.0-2.0); EOSINOPHILS # 0.2 10^3/ul (0.0-0.5); EOSINOPHILS % 2.7 % (0.0-7.0); HEMATOCRIT 28.7 % (37.0-47.0); HEMOGLOBIN 9.5 g/dl (12.0-16.0); LYMPHOCYTES # 1.9 10^3/ul (0.8-2.9); LYMPHOCYTES % 21.8 % (15.0-51.0); MEAN CORPUSCULAR HEMOGLOBIN 31.3 pg (29.0-33.0); MEAN CORPUSCULAR HGB CONC 33.1 g/dl (32.0-37.0); MEAN CORPUSCULAR VOLUME 94.4 fl (82.0-101.0); MEAN PLATELET VOLUME 11.2 fl (7.4-10.4); MONOCYTES % 11.8 % (0.0-11.0); NEUTROPHIL # 5.5 10^3/ul (1.6-7.5); NEUTROPHILS % 62.3 % (39.0-77.0); PLATELET COUNT 229 10^3/UL (140-415); RED BLOOD COUNT 3.04 10^6/ul (4.20-5.40); RED CELL DISTRIBUTION WIDTH 13.8 % (11.5-14.5)
[2017-12-09 07:54] LABS: WHITE BLOOD COUNT 8.8 10^3/ul (4.8-10.8)
[2017-12-09 08:19] LABS: ANION GAP 15 (8-16); BLOOD UREA NITROGEN 39 mg/dl (7-20); CALCIUM 10.4 mg/dl (8.4-10.2); CARBON DIOXIDE 28 mmol/L (21-31); CHLORIDE 97 mmol/L (97-110); CREATININE 2.55 mg/dl (0.44-1.00); GLUCOSE 133 mg/dl (70-220); MAGNESIUM 2.5 mg/dl (1.7-2.5); PHOSPHORUS 2.5 mg/dl (2.5-4.9); POTASSIUM 4.1 mmol/L (3.5-5.1); SODIUM 136 mmol/L (135-144)
[2017-12-09] MEDS: MINOXIDIL 2.5 MG TAB GTB (08:49)
[2017-12-09] MEDS: MULTIVIT/CA CARB/B CMPLX/FA TAB GTB (08:49)
[2017-12-09] MEDS: RIFAMPIN 300 MG CAP GTB (08:49)
[2017-12-09] MEDS: ASCORBIC ACID 500 MG TAB GTB (08:49)
[2017-12-09] MEDS: AMLODIPINE 10 MG TAB GTB (08:49)
[2017-12-09] MEDS: RISPERIDONE 0.25 MG TAB GTB (08:50)
[2017-12-09] MEDS: LEVETIRACETAM (100 MG/ML) 5ML CUP GTB ×2 (08:50→20:28)
[2017-12-09] MEDS: HEPARIN 5,000 UNIT/0.5 ML VIAL SC ×2 (08:51→20:48)
[2017-12-09] MEDS: NYSTATIN 15 GM OINT TOP ×3 (08:52→20:44)
[2017-12-09] MEDS: BALSAM PERU/CASTOR OIL 60 GM TUBE TOP ×2 (08:53→20:44)
[2017-12-09] MEDS: FLUOCINONIDE 0.05% 15 GM CR TOP ×2 (08:53→20:44)
[2017-12-09] MEDS: SEVELAMER CARBONATE 0.8 GM PKT PO ×3 (08:55→20:28)
[2017-12-09] MEDS: NYSTATIN 30 GM POWDER BTL TOP ×2 (08:56→20:44)
[2017-12-09] MEDS: INSULIN GLARGINE [LANtus] 3 ML PEN SC (20:42)
[2017-12-10] MEDS: INSULIN ASPART [NOVOLOG] 3 ML PEN SC ×4 (05:45→17:17)
[2017-12-10] MEDS: LEVOTHYROXINE 125 MCG TAB GTB (06:54)
[2017-12-10] MEDS: MULTIVIT/CA CARB/B CMPLX/FA TAB GTB (08:44)
[2017-12-10] MEDS: LEVETIRACETAM (100 MG/ML) 5ML CUP GTB ×2 (08:44→21:45)
[2017-12-10] MEDS: FLUOCINONIDE 0.05% 15 GM CR TOP ×2 (08:45→21:43)
[2017-12-10] MEDS: SEVELAMER CARBONATE 0.8 GM PKT PO ×3 (08:45→21:44)
[2017-12-10] MEDS: ASCORBIC ACID 500 MG TAB GTB (08:45)
[2017-12-10] MEDS: RISPERIDONE 0.25 MG TAB GTB (08:45)
[2017-12-10] MEDS: NYSTATIN 15 GM OINT TOP ×3 (08:46→21:43)
[2017-12-10] MEDS: BALSAM PERU/CASTOR OIL 60 GM TUBE TOP ×2 (08:46→21:43)
[2017-12-10] MEDS: NYSTATIN 30 GM POWDER BTL TOP ×2 (08:46→21:43)
[2017-12-10] MEDS: HEPARIN 5,000 UNIT/0.5 ML VIAL SC ×2 (08:51→21:55)
[2017-12-10] MEDS: MINOXIDIL 2.5 MG TAB GTB (08:54)
[2017-12-10] MEDS: RIFAMPIN 300 MG CAP GTB (08:54)
[2017-12-10] MEDS: AMLODIPINE 10 MG TAB GTB (08:54)
[2017-12-10] MEDS: HEPARIN 1000 UNITS/ML 10 ML INJ CATHETER (12:35)
[2017-12-10] MEDS: INSULIN GLARGINE [LANtus] 3 ML PEN SC (21:47)
[2017-12-11] MEDS: INSULIN ASPART [NOVOLOG] 3 ML PEN SC ×4 (05:03→17:34)
[2017-12-11] MEDS: LEVOTHYROXINE 125 MCG TAB GTB (05:05)
[2017-12-11] MEDS: LEVETIRACETAM (100 MG/ML) 5ML CUP GTB ×2 (09:24→21:15)
[2017-12-11] MEDS: SEVELAMER CARBONATE 0.8 GM PKT PO ×3 (09:24→21:15)
[2017-12-11] MEDS: RIFAMPIN 300 MG CAP GTB (09:24)
[2017-12-11] MEDS: MULTIVIT/CA CARB/B CMPLX/FA TAB GTB (09:24)
[2017-12-11] MEDS: BALSAM PERU/CASTOR OIL 60 GM TUBE TOP ×2 (09:25→21:18)
[2017-12-11] MEDS: AMLODIPINE 10 MG TAB GTB (09:25)
[2017-12-11] MEDS: RISPERIDONE 0.25 MG TAB GTB (09:25)
[2017-12-11] MEDS: MINOXIDIL 2.5 MG TAB GTB (09:25)
[2017-12-11] MEDS: NYSTATIN 15 GM OINT TOP ×3 (09:25→21:17)
[2017-12-11] MEDS: ASCORBIC ACID 500 MG TAB GTB (09:25)
[2017-12-11] MEDS: NYSTATIN 30 GM POWDER BTL TOP ×2 (09:26→21:17)
[2017-12-11] MEDS: HEPARIN 5,000 UNIT/0.5 ML VIAL SC ×2 (09:36→21:42)
[2017-12-11] MEDS: FLUOCINONIDE 0.05% 15 GM CR TOP ×2 (09:37→21:18)
[2017-12-11] MEDS: INSULIN GLARGINE [LANtus] 3 ML PEN SC (21:42)
[2017-12-12] MEDS: DIPHENHYDRAMINE 2.5 MG/ML 5ML CUP GTB (00:59)
[2017-12-12] MEDS: INSULIN ASPART [NOVOLOG] 3 ML PEN SC ×4 (05:56→18:00)
[2017-12-12] MEDS: LEVOTHYROXINE 125 MCG TAB GTB (06:01)
[2017-12-12 07:56] LABS: ADD MAN DIFF? NO
[2017-12-12 08:05] LABS: WHITE BLOOD COUNT 9.8 10^3/ul (4.8-10.8)
[2017-12-12 08:05] LABS: BASOPHILS % 0.4 % (0.0-2.0); EOSINOPHILS # 0.4 10^3/ul (0.0-0.5); EOSINOPHILS % 4.5 % (0.0-7.0); HEMATOCRIT 25.4 % (37.0-47.0); HEMOGLOBIN 8.6 g/dl (12.0-16.0); LYMPHOCYTES # 2.1 10^3/ul (0.8-2.9); LYMPHOCYTES % 21.9 % (15.0-51.0); MEAN CORPUSCULAR HEMOGLOBIN 32.1 pg (29.0-33.0); MEAN CORPUSCULAR HGB CONC 33.9 g/dl (32.0-37.0); MEAN CORPUSCULAR VOLUME 94.8 fl (82.0-101.0); MEAN PLATELET VOLUME 11.3 fl (7.4-10.4); MONOCYTES % 10.2 % (0.0-11.0); NEUTROPHIL # 6.1 10^3/ul (1.6-7.5); NEUTROPHILS % 62.4 % (39.0-77.0); PLATELET COUNT 234 10^3/UL (140-415); RED BLOOD COUNT 2.68 10^6/ul (4.20-5.40); RED CELL DISTRIBUTION WIDTH 13.8 % (11.5-14.5)
[2017-12-12] MEDS: AMLODIPINE 10 MG TAB GTB (08:07)
[2017-12-12] MEDS: MINOXIDIL 2.5 MG TAB GTB (08:08)
[2017-12-12 08:20] LABS: ANION GAP 16 (8-16); BLOOD UREA NITROGEN 87 mg/dl (7-20); CALCIUM 10.2 mg/dl (8.4-10.2); CARBON DIOXIDE 27 mmol/L (21-31); CHLORIDE 93 mmol/L (97-110); CREATININE 4.47 mg/dl (0.44-1.00); GLUCOSE 105 mg/dl (70-220); MAGNESIUM 2.8 mg/dl (1.7-2.5); PHOSPHORUS 2.9 mg/dl (2.5-4.9); POTASSIUM 4.3 mmol/L (3.5-5.1); SODIUM 132 mmol/L (135-144)
[2017-12-12] MEDS: NYSTATIN 15 GM OINT TOP ×3 (09:00→21:30)
[2017-12-12] MEDS: BALSAM PERU/CASTOR OIL 60 GM TUBE TOP ×2 (09:00→21:29)
[2017-12-12] MEDS: FLUOCINONIDE 0.05% 15 GM CR TOP ×2 (09:00→21:29)
[2017-12-12] MEDS: NYSTATIN 30 GM POWDER BTL TOP ×2 (09:00→21:29)
[2017-12-12] MEDS: HEPARIN 5,000 UNIT/0.5 ML VIAL SC ×2 (10:11→22:06)
[2017-12-12] MEDS: LEVETIRACETAM (100 MG/ML) 5ML CUP GTB ×2 (10:13→21:29)
[2017-12-12] MEDS: RIFAMPIN 300 MG CAP GTB (10:13)
[2017-12-12] MEDS: RISPERIDONE 0.25 MG TAB GTB (10:14)
[2017-12-12] MEDS: MULTIVIT/CA CARB/B CMPLX/FA TAB GTB (10:14)
[2017-12-12] MEDS: ASCORBIC ACID 500 MG TAB GTB (10:14)
[2017-12-12] MEDS: SEVELAMER CARBONATE 0.8 GM PKT PO ×3 (10:14→21:29)
[2017-12-12] MEDS: HEPARIN 1000 UNITS/ML 10 ML INJ CATHETER (13:07)
[2017-12-12] MEDS: INSULIN GLARGINE [LANtus] 3 ML PEN SC (22:06)
[2017-12-13] MEDS: DIPHENHYDRAMINE 2.5 MG/ML 5ML CUP GTB (00:25)
[2017-12-13] MEDS: INSULIN ASPART [NOVOLOG] 3 ML PEN SC ×4 (05:24→17:56)
[2017-12-13] MEDS: LEVOTHYROXINE 125 MCG TAB GTB (07:02)
[2017-12-13] MEDS: RISPERIDONE 0.25 MG TAB GTB (09:28)
[2017-12-13] MEDS: MULTIVIT/CA CARB/B CMPLX/FA TAB GTB (09:28)
[2017-12-13] MEDS: LEVETIRACETAM (100 MG/ML) 5ML CUP GTB ×2 (09:28→21:37)
[2017-12-13] MEDS: RIFAMPIN 300 MG CAP GTB (09:29)
[2017-12-13] MEDS: AMLODIPINE 10 MG TAB GTB (09:30)
[2017-12-13] MEDS: MINOXIDIL 2.5 MG TAB GTB (09:30)
[2017-12-13] MEDS: SEVELAMER CARBONATE 0.8 GM PKT PO ×3 (09:31→21:39)
[2017-12-13] MEDS: HEPARIN 5,000 UNIT/0.5 ML VIAL SC ×2 (09:32→21:41)
[2017-12-13] MEDS: BALSAM PERU/CASTOR OIL 60 GM TUBE TOP ×2 (09:33→21:36)
[2017-12-13] MEDS: NYSTATIN 15 GM OINT TOP ×3 (09:34→21:36)
[2017-12-13] MEDS: NYSTATIN 30 GM POWDER BTL TOP ×2 (09:35→21:36)
[2017-12-13] MEDS: FLUOCINONIDE 0.05% 15 GM CR TOP ×2 (09:36→21:36)
[2017-12-13] MEDS: ASCORBIC ACID 500 MG TAB GTB (09:38)
[2017-12-13] MEDS: INSULIN GLARGINE [LANtus] 3 ML PEN SC (21:41)
[2017-12-14] MEDS: INSULIN ASPART [NOVOLOG] 3 ML PEN SC ×4 (06:00→17:38)
[2017-12-14] MEDS: LEVOTHYROXINE 125 MCG TAB GTB (06:02)
[2017-12-14] MEDS: LEVETIRACETAM (100 MG/ML) 5ML CUP GTB ×2 (08:53→20:38)
[2017-12-14] MEDS: MINOXIDIL 2.5 MG TAB GTB (08:54)
[2017-12-14] MEDS: ASCORBIC ACID 500 MG TAB GTB (08:54)
[2017-12-14] MEDS: RIFAMPIN 300 MG CAP GTB (08:54)
[2017-12-14] MEDS: RISPERIDONE 0.25 MG TAB GTB (08:54)
[2017-12-14] MEDS: MULTIVIT/CA CARB/B CMPLX/FA TAB GTB (08:54)
[2017-12-14] MEDS: FLUOCINONIDE 0.05% 15 GM CR TOP ×2 (08:55→20:44)
[2017-12-14] MEDS: BALSAM PERU/CASTOR OIL 60 GM TUBE TOP ×2 (08:55→20:44)
[2017-12-14] MEDS: SEVELAMER CARBONATE 0.8 GM PKT PO ×3 (08:55→20:38)
[2017-12-14] MEDS: AMLODIPINE 10 MG TAB GTB (08:55)
[2017-12-14] MEDS: NYSTATIN 30 GM POWDER BTL TOP ×2 (08:56→20:45)
[2017-12-14] MEDS: NYSTATIN 15 GM OINT TOP ×3 (08:56→20:44)
[2017-12-14] MEDS: HEPARIN 5,000 UNIT/0.5 ML VIAL SC ×2 (09:09→20:49)
[2017-12-14] MEDS: INSULIN GLARGINE [LANtus] 3 ML PEN SC (20:50)
[2017-12-15] MEDS: INSULIN ASPART [NOVOLOG] 3 ML PEN SC ×4 (00:52→18:00)
[2017-12-15] MEDS: LEVOTHYROXINE 125 MCG TAB GTB (06:21)
[2017-12-15] MEDS: MINOXIDIL 2.5 MG TAB GTB (09:00)
[2017-12-15] MEDS: AMLODIPINE 10 MG TAB GTB (09:00)
[2017-12-15] MEDS: RIFAMPIN 300 MG CAP GTB (09:44)
[2017-12-15] MEDS: RISPERIDONE 0.25 MG TAB GTB (09:44)
[2017-12-15] MEDS: MULTIVIT/CA CARB/B CMPLX/FA TAB GTB (09:44)
[2017-12-15] MEDS: LEVETIRACETAM (100 MG/ML) 5ML CUP GTB ×2 (09:44→20:44)
[2017-12-15] MEDS: ASCORBIC ACID 500 MG TAB GTB (09:44)
[2017-12-15] MEDS: BALSAM PERU/CASTOR OIL 60 GM TUBE TOP ×2 (09:45→20:42)
[2017-12-15] MEDS: FLUOCINONIDE 0.05% 15 GM CR TOP ×2 (09:45→20:42)
[2017-12-15] MEDS: NYSTATIN 30 GM POWDER BTL TOP ×2 (09:45→20:42)
[2017-12-15] MEDS: SEVELAMER CARBONATE 0.8 GM PKT PO ×3 (09:45→20:44)
[2017-12-15] MEDS: NYSTATIN 15 GM OINT TOP ×3 (09:45→20:42)
[2017-12-15] MEDS: HEPARIN 5,000 UNIT/0.5 ML VIAL SC ×2 (10:03→21:01)
[2017-12-15 17:05] LABS: HEPATITIS B SURFACE ANTIGEN NEGATIVE (NEGATIVE)
[2017-12-15 17:23] LABS: HEPATITIS B SURFACE ANTIBODY NEGATIVE (NEGATIVE)
[2017-12-15] MEDS: HEPARIN 1000 UNITS/ML 10 ML INJ CATHETER (18:33)
[2017-12-15] MEDS: INSULIN GLARGINE [LANtus] 3 ML PEN SC (21:01)
[2017-12-16] MEDS: INSULIN ASPART [NOVOLOG] 3 ML PEN SC ×4 (00:40→18:00)
[2017-12-16] MEDS: LEVOTHYROXINE 125 MCG TAB GTB (07:12)
[2017-12-16] MEDS: LEVETIRACETAM (100 MG/ML) 5ML CUP GTB ×2 (10:15→21:41)
[2017-12-16] MEDS: MULTIVIT/CA CARB/B CMPLX/FA TAB GTB (10:16)
[2017-12-16] MEDS: RIFAMPIN 300 MG CAP GTB (10:16)
[2017-12-16] MEDS: RISPERIDONE 0.25 MG TAB GTB (10:16)
[2017-12-16] MEDS: SEVELAMER CARBONATE 0.8 GM PKT PO ×3 (10:16→21:44)
[2017-12-16] MEDS: ASCORBIC ACID 500 MG TAB GTB (10:16)
[2017-12-16] MEDS: AMLODIPINE 10 MG TAB GTB (10:17)
[2017-12-16] MEDS: MINOXIDIL 2.5 MG TAB GTB (10:17)
[2017-12-16] MEDS: HEPARIN 5,000 UNIT/0.5 ML VIAL SC ×2 (10:18→21:43)
[2017-12-16] MEDS: BALSAM PERU/CASTOR OIL 60 GM TUBE TOP ×2 (10:19→21:53)
[2017-12-16] MEDS: FLUOCINONIDE 0.05% 15 GM CR TOP ×2 (10:19→21:41)
[2017-12-16] MEDS: NYSTATIN 30 GM POWDER BTL TOP ×2 (10:19→21:41)
[2017-12-16] MEDS: NYSTATIN 15 GM OINT TOP ×3 (10:19→21:41)
[2017-12-16] MEDS: INSULIN GLARGINE [LANtus] 3 ML PEN SC (21:43)
[2017-12-17] MEDS: INSULIN ASPART [NOVOLOG] 3 ML PEN SC ×4 (00:48→17:12)
[2017-12-17] MEDS: LEVOTHYROXINE 125 MCG TAB GTB (06:24)
[2017-12-17 07:21] LABS: ADD MAN DIFF? NO
[2017-12-17 07:26] LABS: BASOPHILS % 0.4 % (0.0-2.0); EOSINOPHILS # 0.4 10^3/ul (0.0-0.5); EOSINOPHILS % 4.6 % (0.0-7.0); HEMOGLOBIN 7.4 g/dl (12.0-16.0); LYMPHOCYTES % 24.8 % (15.0-51.0); MEAN CORPUSCULAR HEMOGLOBIN 32.2 pg (29.0-33.0); MEAN CORPUSCULAR HGB CONC 33.6 g/dl (32.0-37.0); MEAN CORPUSCULAR VOLUME 95.7 fl (82.0-101.0); MEAN PLATELET VOLUME 10.8 fl (7.4-10.4); MONOCYTE # 0.8 10^3/ul (0.3-0.9); MONOCYTES % 10.7 % (0.0-11.0); NEUTROPHIL # 4.6 10^3/ul (1.6-7.5); NEUTROPHILS % 58.9 % (39.0-77.0); PLATELET COUNT 247 10^3/UL (140-415); RED CELL DISTRIBUTION WIDTH 14.1 % (11.5-14.5)
[2017-12-17 07:26] LABS: WHITE BLOOD COUNT 7.9 10^3/ul (4.8-10.8)
[2017-12-17 07:41] LABS: ANION GAP 12 (8-16); BLOOD UREA NITROGEN 58 mg/dl (7-20); CALCIUM 10.3 mg/dl (8.4-10.2); CARBON DIOXIDE 31 mmol/L (21-31); CHLORIDE 95 mmol/L (97-110); CREATININE 3.75 mg/dl (0.44-1.00); GLUCOSE 144 mg/dl (70-220); MAGNESIUM 2.7 mg/dl (1.7-2.5); PHOSPHORUS 2.9 mg/dl (2.5-4.9); POTASSIUM 4.4 mmol/L (3.5-5.1); SODIUM 134 mmol/L (135-144)
[2017-12-17 08:06] LABS: IRON 142 ug/dl (35-150)
[2017-12-17 08:15] LABS: % IRON SATURATION 74 % SAT (22-52); TOTAL IRON BINDING CAPACITY 193 ug/dl (241-421)
[2017-12-17 08:38] LABS: HEMATOCRIT 21.2 % (37.0-47.0); HEMOGLOBIN 7.2 g/dl (12.0-16.0)
[2017-12-17] MEDS: ASCORBIC ACID 500 MG TAB GTB (08:44)
[2017-12-17] MEDS: MINOXIDIL 2.5 MG TAB GTB (08:44)
[2017-12-17] MEDS: RIFAMPIN 300 MG CAP GTB (08:44)
[2017-12-17] MEDS: MULTIVIT/CA CARB/B CMPLX/FA TAB GTB (08:44)
[2017-12-17] MEDS: AMLODIPINE 10 MG TAB GTB (08:44)
[2017-12-17] MEDS: LEVETIRACETAM (100 MG/ML) 5ML CUP GTB ×2 (08:45→21:33)
[2017-12-17] MEDS: SEVELAMER CARBONATE 0.8 GM PKT PO ×3 (08:45→21:33)
[2017-12-17] MEDS: RISPERIDONE 0.25 MG TAB GTB (08:45)
[2017-12-17] MEDS: NYSTATIN 30 GM POWDER BTL TOP ×2 (08:46→21:33)
[2017-12-17] MEDS: NYSTATIN 15 GM OINT TOP ×3 (08:46→21:33)
[2017-12-17] MEDS: FLUOCINONIDE 0.05% 15 GM CR TOP ×2 (08:46→21:33)
[2017-12-17] MEDS: BALSAM PERU/CASTOR OIL 60 GM TUBE TOP ×2 (08:46→21:33)
[2017-12-17] MEDS: HEPARIN 5,000 UNIT/0.5 ML VIAL SC ×2 (08:50→21:36)
[2017-12-17 12:49] LABS: IMMEDIATE SPIN CROSSMATCH 1 1
[2017-12-17] MEDS: INSULIN GLARGINE [LANtus] 3 ML PEN SC (21:55)
[2017-12-18] MEDS: INSULIN ASPART [NOVOLOG] 3 ML PEN SC ×4 (06:00→17:28)
[2017-12-18 06:35] LABS: ADD MAN DIFF? NO
[2017-12-18 06:42] LABS: WHITE BLOOD COUNT 8.1 10^3/ul (4.8-10.8)
[2017-12-18 06:42] LABS: BASOPHIL # 0.1 10^3/ul (0.0-0.1); BASOPHILS % 0.7 % (0.0-2.0); EOSINOPHILS # 0.3 10^3/ul (0.0-0.5); EOSINOPHILS % 4.2 % (0.0-7.0); LYMPHOCYTES # 2.1 10^3/ul (0.8-2.9); LYMPHOCYTES % 25.6 % (15.0-51.0); MEAN CORPUSCULAR HEMOGLOBIN 31.9 pg (29.0-33.0); MEAN CORPUSCULAR HGB CONC 33.3 g/dl (32.0-37.0); MEAN CORPUSCULAR VOLUME 95.7 fl (82.0-101.0); MEAN PLATELET VOLUME 10.4 fl (7.4-10.4); MONOCYTES % 11.9 % (0.0-11.0); NEUTROPHIL # 4.6 10^3/ul (1.6-7.5); NEUTROPHILS % 56.7 % (39.0-77.0); PLATELET COUNT 256 10^3/UL (140-415); RED BLOOD COUNT 2.82 10^6/ul (4.20-5.40); RED CELL DISTRIBUTION WIDTH 14.7 % (11.5-14.5)
[2017-12-18] MEDS: LEVOTHYROXINE 125 MCG TAB GTB (07:21)
[2017-12-18] MEDS: LEVETIRACETAM (100 MG/ML) 5ML CUP GTB ×2 (09:08→21:06)
[2017-12-18] MEDS: MULTIVIT/CA CARB/B CMPLX/FA TAB GTB (09:08)
[2017-12-18] MEDS: SEVELAMER CARBONATE 0.8 GM PKT PO ×3 (09:08→21:07)
[2017-12-18] MEDS: RIFAMPIN 300 MG CAP GTB (09:09)
[2017-12-18] MEDS: MINOXIDIL 2.5 MG TAB GTB (09:09)
[2017-12-18] MEDS: ASCORBIC ACID 500 MG TAB GTB (09:09)
[2017-12-18] MEDS: AMLODIPINE 10 MG TAB GTB (09:10)
[2017-12-18] MEDS: FLUOCINONIDE 0.05% 15 GM CR TOP ×2 (09:12→21:07)
[2017-12-18] MEDS: BALSAM PERU/CASTOR OIL 60 GM TUBE TOP ×2 (09:12→21:07)
[2017-12-18] MEDS: NYSTATIN 30 GM POWDER BTL TOP ×2 (09:12→21:07)
[2017-12-18] MEDS: NYSTATIN 15 GM OINT TOP ×3 (09:12→21:07)
[2017-12-18] MEDS: RISPERIDONE 0.25 MG TAB GTB (09:15)
[2017-12-18] MEDS: HEPARIN 5,000 UNIT/0.5 ML VIAL SC ×2 (09:16→21:09)
[2017-12-18] MEDS: INSULIN GLARGINE [LANtus] 3 ML PEN SC (20:00)
[2017-12-19] MEDS: INSULIN ASPART [NOVOLOG] 3 ML PEN SC ×4 (05:58→17:27)
[2017-12-19] MEDS: LEVOTHYROXINE 125 MCG TAB GTB (06:02)
[2017-12-19] MEDS: MULTIVIT/CA CARB/B CMPLX/FA TAB GTB (09:00)
[2017-12-19] MEDS: AMLODIPINE 10 MG TAB GTB (09:00)
[2017-12-19] MEDS: LEVETIRACETAM (100 MG/ML) 5ML CUP GTB ×2 (09:00→22:13)
[2017-12-19] MEDS: RISPERIDONE 0.25 MG TAB GTB (09:00)
[2017-12-19] MEDS: ASCORBIC ACID 500 MG TAB GTB (09:00)
[2017-12-19] MEDS: RIFAMPIN 300 MG CAP GTB (09:00)
[2017-12-19] MEDS: MINOXIDIL 2.5 MG TAB GTB (09:00)
[2017-12-19] MEDS: SEVELAMER CARBONATE 0.8 GM PKT PO ×3 (09:00→22:13)
[2017-12-19] MEDS: FLUOCINONIDE 0.05% 15 GM CR TOP ×2 (09:09→21:00)
[2017-12-19] MEDS: NYSTATIN 15 GM OINT TOP ×3 (09:09→21:00)
[2017-12-19] MEDS: BALSAM PERU/CASTOR OIL 60 GM TUBE TOP ×2 (09:09→21:00)
[2017-12-19] MEDS: HEPARIN 5,000 UNIT/0.5 ML VIAL SC ×2 (09:09→22:15)
[2017-12-19] MEDS: NYSTATIN 30 GM POWDER BTL TOP ×2 (09:10→21:00)
[2017-12-19] MEDS: HEPARIN 1000 UNITS/ML 10 ML INJ CATHETER (13:23)
[2017-12-19] MEDS: INSULIN GLARGINE [LANtus] 3 ML PEN SC (22:27)
[2017-12-20] MEDS: INSULIN ASPART [NOVOLOG] 3 ML PEN SC ×4 (06:00→18:00)
[2017-12-20] MEDS: LEVOTHYROXINE 125 MCG TAB GTB (06:45)
[2017-12-20] MEDS: LEVETIRACETAM (100 MG/ML) 5ML CUP GTB ×2 (09:00→22:17)
[2017-12-20] MEDS: RIFAMPIN 300 MG CAP GTB (09:01)
[2017-12-20] MEDS: RISPERIDONE 0.25 MG TAB GTB (09:01)
[2017-12-20] MEDS: ASCORBIC ACID 500 MG TAB GTB (09:02)
[2017-12-20] MEDS: MULTIVIT/CA CARB/B CMPLX/FA TAB GTB (09:02)
[2017-12-20] MEDS: AMLODIPINE 10 MG TAB GTB (09:02)
[2017-12-20] MEDS: SEVELAMER CARBONATE 0.8 GM PKT PO ×3 (09:03→22:17)
[2017-12-20] MEDS: MINOXIDIL 2.5 MG TAB GTB (09:03)
[2017-12-20] MEDS: HEPARIN 5,000 UNIT/0.5 ML VIAL SC ×2 (09:04→22:29)
[2017-12-20] MEDS: FLUOCINONIDE 0.05% 15 GM CR TOP ×2 (09:04→22:18)
[2017-12-20] MEDS: BALSAM PERU/CASTOR OIL 60 GM TUBE TOP ×2 (09:05→22:18)
[2017-12-20] MEDS: NYSTATIN 30 GM POWDER BTL TOP ×2 (09:05→22:18)
[2017-12-20] MEDS: NYSTATIN 15 GM OINT TOP ×3 (09:05→22:19)
[2017-12-20] MEDS: INSULIN GLARGINE [LANtus] 3 ML PEN SC (20:34)
[2017-12-21] MEDS: INSULIN ASPART [NOVOLOG] 3 ML PEN SC ×4 (06:44→17:23)
[2017-12-21] MEDS: LEVOTHYROXINE 125 MCG TAB GTB (06:45)
[2017-12-21] MEDS: ASCORBIC ACID 500 MG TAB GTB (09:03)
[2017-12-21] MEDS: LEVETIRACETAM (100 MG/ML) 5ML CUP GTB ×2 (09:03→20:15)
[2017-12-21] MEDS: RIFAMPIN 300 MG CAP GTB (09:03)
[2017-12-21] MEDS: AMLODIPINE 10 MG TAB GTB (09:03)
[2017-12-21] MEDS: SEVELAMER CARBONATE 0.8 GM PKT PO ×3 (09:03→20:15)
[2017-12-21] MEDS: MULTIVIT/CA CARB/B CMPLX/FA TAB GTB (09:03)
[2017-12-21] MEDS: BALSAM PERU/CASTOR OIL 60 GM TUBE TOP ×2 (09:04→20:16)
[2017-12-21] MEDS: MINOXIDIL 2.5 MG TAB GTB (09:04)
[2017-12-21] MEDS: FLUOCINONIDE 0.05% 15 GM CR TOP ×2 (09:04→20:31)
[2017-12-21] MEDS: NYSTATIN 30 GM POWDER BTL TOP ×2 (09:05→20:16)
[2017-12-21] MEDS: NYSTATIN 15 GM OINT TOP ×3 (09:05→20:16)
[2017-12-21] MEDS: HEPARIN 5,000 UNIT/0.5 ML VIAL SC ×2 (09:18→20:28)
[2017-12-21] MEDS: RISPERIDONE 1 MG TAB GTB (09:21)
[2017-12-21] MEDS: SEVELAMER CARBONATE 2.4 GM PKT PO ×2 (12:15→20:31)
[2017-12-21] MEDS: INSULIN GLARGINE [LANtus] 3 ML PEN SC (20:27)
[2017-12-22] MEDS: INSULIN ASPART [NOVOLOG] 3 ML PEN SC ×4 (00:48→18:00)
[2017-12-22] MEDS: LEVOTHYROXINE 125 MCG TAB GTB (06:57)
[2017-12-22] MEDS: SEVELAMER CARBONATE 2.4 GM PKT PO ×3 (09:11→20:50)
[2017-12-22] MEDS: MULTIVIT/CA CARB/B CMPLX/FA TAB GTB (09:12)
[2017-12-22] MEDS: MINOXIDIL 2.5 MG TAB GTB (09:12)
[2017-12-22] MEDS: SEVELAMER CARBONATE 0.8 GM PKT PO ×3 (09:12→20:51)
[2017-12-22] MEDS: LEVETIRACETAM (100 MG/ML) 5ML CUP GTB ×2 (09:12→20:48)
[2017-12-22] MEDS: ASCORBIC ACID 500 MG TAB GTB (09:13)
[2017-12-22] MEDS: AMLODIPINE 10 MG TAB GTB (09:13)
[2017-12-22] MEDS: RIFAMPIN 300 MG CAP GTB (09:13)
[2017-12-22] MEDS: RISPERIDONE 1 MG TAB GTB (09:13)
[2017-12-22] MEDS: NYSTATIN 15 GM OINT TOP ×3 (09:42→20:54)
[2017-12-22] MEDS: BALSAM PERU/CASTOR OIL 60 GM TUBE TOP ×2 (09:42→20:53)
[2017-12-22] MEDS: FLUOCINONIDE 0.05% 15 GM CR TOP ×2 (09:42→20:54)
[2017-12-22] MEDS: NYSTATIN 30 GM POWDER BTL TOP ×2 (09:42→20:53)
[2017-12-22] MEDS: HEPARIN 5,000 UNIT/0.5 ML VIAL SC ×2 (09:42→20:48)
[2017-12-22] MEDS: DIPHENHYDRAMINE 2.5 MG/ML 5ML CUP GTB (11:04)
[2017-12-22] MEDS: HEPARIN 1000 UNITS/ML 10 ML INJ CATHETER (17:18)
[2017-12-22] MEDS: INSULIN GLARGINE [LANtus] 3 ML PEN SC (20:49)
[2017-12-23] MEDS: INSULIN ASPART [NOVOLOG] 3 ML PEN SC ×4 (00:33→17:40)
[2017-12-23] MEDS: LEVOTHYROXINE 125 MCG TAB GTB (05:39)
[2017-12-23 08:54] LABS: ADD MAN DIFF? NO
[2017-12-23] MEDS: RISPERIDONE 1 MG TAB GTB (09:00)
[2017-12-23] MEDS: MULTIVIT/CA CARB/B CMPLX/FA TAB GTB (09:00)
[2017-12-23] MEDS: HEPARIN 5,000 UNIT/0.5 ML VIAL SC ×2 (09:00→20:56)
[2017-12-23] MEDS: NYSTATIN 30 GM POWDER BTL TOP ×2 (09:00→20:49)
[2017-12-23] MEDS: NYSTATIN 15 GM OINT TOP ×3 (09:00→20:50)
[2017-12-23] MEDS: AMLODIPINE 10 MG TAB GTB (09:00)
[2017-12-23] MEDS: FLUOCINONIDE 0.05% 15 GM CR TOP ×2 (09:00→20:50)
[2017-12-23] MEDS: ASCORBIC ACID 500 MG TAB GTB (09:00)
[2017-12-23] MEDS: BALSAM PERU/CASTOR OIL 60 GM TUBE TOP ×2 (09:00→20:49)
[2017-12-23 09:02] LABS: WHITE BLOOD COUNT 8.9 10^3/ul (4.8-10.8)
[2017-12-23 09:02] LABS: BASOPHIL # 0.1 10^3/ul (0.0-0.1); BASOPHILS % 0.7 % (0.0-2.0); EOSINOPHILS # 0.4 10^3/ul (0.0-0.5); EOSINOPHILS % 4.6 % (0.0-7.0); HEMOGLOBIN 8.4 g/dl (12.0-16.0); LYMPHOCYTES # 2.1 10^3/ul (0.8-2.9); LYMPHOCYTES % 23.3 % (15.0-51.0); MEAN CORPUSCULAR HEMOGLOBIN 32.1 pg (29.0-33.0); MEAN CORPUSCULAR HGB CONC 33.6 g/dl (32.0-37.0); MEAN CORPUSCULAR VOLUME 95.4 fl (82.0-101.0); MEAN PLATELET VOLUME 10.8 fl (7.4-10.4); MONOCYTES % 10.7 % (0.0-11.0); NEUTROPHIL # 5.3 10^3/ul (1.6-7.5); NEUTROPHILS % 59.7 % (39.0-77.0); PLATELET COUNT 249 10^3/UL (140-415); RED BLOOD COUNT 2.62 10^6/ul (4.20-5.40); RED CELL DISTRIBUTION WIDTH 14.4 % (11.5-14.5)
[2017-12-23 09:24] LABS: ANION GAP 15 (8-16); BLOOD UREA NITROGEN 39 mg/dl (7-20); CALCIUM 10.1 mg/dl (8.4-10.2); CARBON DIOXIDE 31 mmol/L (21-31); CHLORIDE 97 mmol/L (97-110); CREATININE 2.61 mg/dl (0.44-1.00); GLUCOSE 133 mg/dl (70-220); MAGNESIUM 2.4 mg/dl (1.7-2.5); PHOSPHORUS 2.6 mg/dl (2.5-4.9); POTASSIUM 4.3 mmol/L (3.5-5.1); SODIUM 139 mmol/L (135-144)
[2017-12-23] MEDS: RIFAMPIN 300 MG CAP GTB (09:50)
[2017-12-23] MEDS: SEVELAMER CARBONATE 0.8 GM PKT PO ×3 (09:50→20:48)
[2017-12-23] MEDS: SEVELAMER CARBONATE 2.4 GM PKT PO ×3 (09:50→20:48)
[2017-12-23] MEDS: LEVETIRACETAM (100 MG/ML) 5ML CUP GTB ×2 (09:50→20:47)
[2017-12-23] MEDS: MINOXIDIL 2.5 MG TAB GTB (10:08)
[2017-12-23] MEDS: DIPHENHYDRAMINE 2.5 MG/ML 5ML CUP GTB (12:17)
[2017-12-23] MEDS: INSULIN GLARGINE [LANtus] 3 ML PEN SC (20:52)
[2017-12-24] MEDS: INSULIN ASPART [NOVOLOG] 3 ML PEN SC ×5 (00:40→23:52)
[2017-12-24] MEDS: LEVOTHYROXINE 125 MCG TAB GTB (05:29)
[2017-12-24] MEDS: MINOXIDIL 2.5 MG TAB GTB (09:00)
[2017-12-24] MEDS: AMLODIPINE 10 MG TAB GTB (09:00)
[2017-12-24] MEDS: RISPERIDONE 1 MG TAB GTB (09:19)
[2017-12-24] MEDS: ASCORBIC ACID 500 MG TAB GTB (09:19)
[2017-12-24] MEDS: RIFAMPIN 300 MG CAP GTB (09:20)
[2017-12-24] MEDS: LEVETIRACETAM (100 MG/ML) 5ML CUP GTB ×2 (09:21→22:04)
[2017-12-24] MEDS: NYSTATIN 30 GM POWDER BTL TOP ×2 (09:24→22:05)
[2017-12-24] MEDS: BALSAM PERU/CASTOR OIL 60 GM TUBE TOP ×2 (09:25→22:08)
[2017-12-24] MEDS: NYSTATIN 15 GM OINT TOP ×3 (09:25→22:06)
[2017-12-24] MEDS: FLUOCINONIDE 0.05% 15 GM CR TOP ×2 (09:26→22:06)
[2017-12-24] MEDS: HEPARIN 5,000 UNIT/0.5 ML VIAL SC ×2 (09:51→22:15)
[2017-12-24] MEDS: SEVELAMER CARBONATE 2.4 GM PKT PO ×3 (10:15→22:04)
[2017-12-24] MEDS: MULTIVIT/CA CARB/B CMPLX/FA TAB GTB (10:15)
[2017-12-24] MEDS: SEVELAMER CARBONATE 0.8 GM PKT PO ×3 (10:15→22:04)
[2017-12-24] MEDS: INSULIN GLARGINE [LANtus] 3 ML PEN SC (22:15)
[2017-12-25] MEDS: INSULIN ASPART [NOVOLOG] 3 ML PEN SC ×3 (06:14→17:19)
[2017-12-25] MEDS: LEVOTHYROXINE 125 MCG TAB GTB (06:34)
[2017-12-25] MEDS: SEVELAMER CARBONATE 0.8 GM PKT PO ×3 (09:03→21:56)
[2017-12-25] MEDS: MULTIVIT/CA CARB/B CMPLX/FA TAB GTB (09:03)
[2017-12-25] MEDS: LEVETIRACETAM (100 MG/ML) 5ML CUP GTB ×2 (09:03→21:00)
[2017-12-25] MEDS: RIFAMPIN 300 MG CAP GTB (09:03)
[2017-12-25] MEDS: MINOXIDIL 2.5 MG TAB GTB (09:05)
[2017-12-25] MEDS: RISPERIDONE 1 MG TAB GTB (09:05)
[2017-12-25] MEDS: AMLODIPINE 10 MG TAB GTB (09:05)
[2017-12-25] MEDS: SEVELAMER CARBONATE 2.4 GM PKT PO ×3 (09:05→22:07)
[2017-12-25] MEDS: ASCORBIC ACID 500 MG TAB GTB (09:05)
[2017-12-25] MEDS: BALSAM PERU/CASTOR OIL 60 GM TUBE TOP ×2 (09:06→21:59)
[2017-12-25] MEDS: NYSTATIN 30 GM POWDER BTL TOP ×2 (09:06→22:00)
[2017-12-25] MEDS: FLUOCINONIDE 0.05% 15 GM CR TOP ×2 (09:07→22:01)
[2017-12-25] MEDS: NYSTATIN 15 GM OINT TOP ×3 (09:07→21:59)
[2017-12-25] MEDS: HEPARIN 5,000 UNIT/0.5 ML VIAL SC ×2 (09:20→22:04)
[2017-12-25] MEDS: INSULIN GLARGINE [LANtus] 3 ML PEN SC (20:37)
[2017-12-26] MEDS: INSULIN ASPART [NOVOLOG] 3 ML PEN SC ×5 (06:00→23:44)
[2017-12-26] MEDS: LEVOTHYROXINE 125 MCG TAB GTB (06:33)
[2017-12-26 08:27] LABS: ADD MAN DIFF? NO
[2017-12-26 08:35] LABS: WHITE BLOOD COUNT 8.7 10^3/ul (4.8-10.8)
[2017-12-26 08:35] LABS: BASOPHILS % 0.5 % (0.0-2.0); EOSINOPHILS # 0.3 10^3/ul (0.0-0.5); EOSINOPHILS % 3.9 % (0.0-7.0); HEMOGLOBIN 7.8 g/dl (12.0-16.0); LYMPHOCYTES # 2.1 10^3/ul (0.8-2.9); LYMPHOCYTES % 23.6 % (15.0-51.0); MEAN CORPUSCULAR HEMOGLOBIN 31.3 pg (29.0-33.0); MEAN CORPUSCULAR HGB CONC 32.5 g/dl (32.0-37.0); MEAN CORPUSCULAR VOLUME 96.4 fl (82.0-101.0); MEAN PLATELET VOLUME 10.9 fl (7.4-10.4); NEUTROPHIL # 5.2 10^3/ul (1.6-7.5); NEUTROPHILS % 60.3 % (39.0-77.0); PLATELET COUNT 275 10^3/UL (140-415); RED BLOOD COUNT 2.49 10^6/ul (4.20-5.40); RED CELL DISTRIBUTION WIDTH 14.5 % (11.5-14.5)
[2017-12-26 08:59] LABS: ANION GAP 17 (8-16); BLOOD UREA NITROGEN 55 mg/dl (7-20); CALCIUM 10.7 mg/dl (8.4-10.2); CARBON DIOXIDE 29 mmol/L (21-31); CHLORIDE 98 mmol/L (97-110); CREATININE 3.66 mg/dl (0.44-1.00); GLUCOSE 129 mg/dl (70-220); MAGNESIUM 2.7 mg/dl (1.7-2.5); PHOSPHORUS 2.9 mg/dl (2.5-4.9); POTASSIUM 4.6 mmol/L (3.5-5.1); SODIUM 139 mmol/L (135-144)
[2017-12-26] MEDS: HEPARIN 5,000 UNIT/0.5 ML VIAL SC ×2 (09:00→21:10)
[2017-12-26] MEDS: MULTIVIT/CA CARB/B CMPLX/FA TAB GTB (09:00)
[2017-12-26] MEDS: RISPERIDONE 1 MG TAB GTB (09:00)
[2017-12-26] MEDS: ASCORBIC ACID 500 MG TAB GTB (09:00)
[2017-12-26] MEDS: SEVELAMER CARBONATE 2.4 GM PKT PO ×3 (09:00→20:59)
[2017-12-26] MEDS: RIFAMPIN 300 MG CAP GTB (09:00)
[2017-12-26] MEDS: SEVELAMER CARBONATE 0.8 GM PKT PO ×3 (09:00→20:59)
[2017-12-26] MEDS: BALSAM PERU/CASTOR OIL 60 GM TUBE TOP ×2 (09:01→21:00)
[2017-12-26] MEDS: NYSTATIN 30 GM POWDER BTL TOP ×2 (09:01→20:59)
[2017-12-26] MEDS: FLUOCINONIDE 0.05% 15 GM CR TOP ×2 (09:01→21:01)
[2017-12-26] MEDS: NYSTATIN 15 GM OINT TOP ×3 (09:01→21:00)
[2017-12-26] MEDS: MINOXIDIL 2.5 MG TAB GTB (09:09)
[2017-12-26] MEDS: LEVETIRACETAM (100 MG/ML) 5ML CUP GTB ×2 (09:09→20:59)
[2017-12-26] MEDS: AMLODIPINE 10 MG TAB GTB (09:10)
[2017-12-26] MEDS: HEPARIN 1000 UNITS/ML 10 ML INJ CATHETER (15:27)
[2017-12-26] MEDS: INSULIN GLARGINE [LANtus] 3 ML PEN SC (21:10)
[2017-12-27] MEDS: LEVOTHYROXINE 125 MCG TAB GTB (06:03)
[2017-12-27] MEDS: INSULIN ASPART [NOVOLOG] 3 ML PEN SC ×4 (06:07→23:58)
[2017-12-27] MEDS: MULTIVIT/CA CARB/B CMPLX/FA TAB GTB (09:31)
[2017-12-27] MEDS: SEVELAMER CARBONATE 2.4 GM PKT PO ×3 (09:31→20:35)
[2017-12-27] MEDS: LEVETIRACETAM (100 MG/ML) 5ML CUP GTB ×2 (09:31→20:35)
[2017-12-27] MEDS: RIFAMPIN 300 MG CAP GTB (09:31)
[2017-12-27] MEDS: SEVELAMER CARBONATE 0.8 GM PKT PO ×3 (09:31→20:35)
[2017-12-27] MEDS: ASCORBIC ACID 500 MG TAB GTB (09:31)
[2017-12-27] MEDS: RISPERIDONE 1 MG TAB GTB (09:32)
[2017-12-27] MEDS: AMLODIPINE 10 MG TAB GTB (09:32)
[2017-12-27] MEDS: MINOXIDIL 2.5 MG TAB GTB (09:33)
[2017-12-27] MEDS: HEPARIN 5,000 UNIT/0.5 ML VIAL SC ×2 (09:34→20:46)
[2017-12-27] MEDS: BALSAM PERU/CASTOR OIL 60 GM TUBE TOP ×2 (09:35→20:36)
[2017-12-27] MEDS: FLUOCINONIDE 0.05% 15 GM CR TOP ×2 (09:36→20:36)
[2017-12-27] MEDS: NYSTATIN 15 GM OINT TOP ×3 (09:36→20:35)
[2017-12-27] MEDS: NYSTATIN 30 GM POWDER BTL TOP ×2 (09:36→20:35)
[2017-12-27] MEDS: INSULIN GLARGINE [LANtus] 3 ML PEN SC (20:46)
[2017-12-28] MEDS: LEVOTHYROXINE 125 MCG TAB GTB (06:08)
[2017-12-28] MEDS: INSULIN ASPART [NOVOLOG] 3 ML PEN SC ×4 (06:14→23:48)
[2017-12-28] MEDS: MINOXIDIL 2.5 MG TAB GTB (09:00)
[2017-12-28] MEDS: AMLODIPINE 10 MG TAB GTB (09:00)
[2017-12-28] MEDS: HEPARIN 5,000 UNIT/0.5 ML VIAL SC ×2 (09:10→21:14)
[2017-12-28] MEDS: SEVELAMER CARBONATE 0.8 GM PKT PO ×3 (09:17→21:08)
[2017-12-28] MEDS: MULTIVIT/CA CARB/B CMPLX/FA TAB GTB (09:17)
[2017-12-28] MEDS: SEVELAMER CARBONATE 2.4 GM PKT PO ×3 (09:17→21:08)
[2017-12-28] MEDS: RIFAMPIN 300 MG CAP GTB (09:19)
[2017-12-28] MEDS: ASCORBIC ACID 500 MG TAB GTB (09:19)
[2017-12-28] MEDS: FLUOCINONIDE 0.05% 15 GM CR TOP ×2 (09:21→21:15)
[2017-12-28] MEDS: RISPERIDONE 1 MG TAB GTB (09:21)
[2017-12-28] MEDS: LEVETIRACETAM (100 MG/ML) 5ML CUP GTB ×2 (09:21→21:08)
[2017-12-28] MEDS: BALSAM PERU/CASTOR OIL 60 GM TUBE TOP ×2 (09:22→21:16)
[2017-12-28] MEDS: NYSTATIN 30 GM POWDER BTL TOP ×2 (09:36→21:15)
[2017-12-28] MEDS: NYSTATIN 15 GM OINT TOP ×3 (09:40→21:15)
[2017-12-28] MEDS: ALBUMIN HUMAN 25% 100 ML IV (12:15)
[2017-12-28] MEDS: HEPARIN 1000 UNITS/ML 10 ML INJ CATHETER (14:49)
[2017-12-28] MEDS: INSULIN GLARGINE [LANtus] 3 ML PEN SC (21:13)
[2017-12-29] MEDS: INSULIN ASPART [NOVOLOG] 3 ML PEN SC ×3 (06:00→18:00)
[2017-12-29] MEDS: LEVOTHYROXINE 125 MCG TAB GTB (07:00)
[2017-12-29] MEDS: LEVETIRACETAM (100 MG/ML) 5ML CUP GTB ×2 (08:44→20:54)
[2017-12-29] MEDS: AMLODIPINE 10 MG TAB GTB (08:45)
[2017-12-29] MEDS: MULTIVIT/CA CARB/B CMPLX/FA TAB GTB (08:45)
[2017-12-29] MEDS: RIFAMPIN 300 MG CAP GTB (08:45)
[2017-12-29] MEDS: ASCORBIC ACID 500 MG TAB GTB (08:45)
[2017-12-29] MEDS: RISPERIDONE 1 MG TAB GTB (08:46)
[2017-12-29] MEDS: MINOXIDIL 2.5 MG TAB GTB (08:46)
[2017-12-29] MEDS: NYSTATIN 30 GM POWDER BTL TOP ×2 (08:46→20:55)
[2017-12-29] MEDS: SEVELAMER CARBONATE 0.8 GM PKT PO ×3 (08:46→20:55)
[2017-12-29] MEDS: SEVELAMER CARBONATE 2.4 GM PKT PO ×3 (08:46→20:55)
[2017-12-29] MEDS: BALSAM PERU/CASTOR OIL 60 GM TUBE TOP ×2 (08:47→20:55)
[2017-12-29] MEDS: FLUOCINONIDE 0.05% 15 GM CR TOP ×2 (08:47→20:56)
[2017-12-29] MEDS: NYSTATIN 15 GM OINT TOP ×3 (08:47→20:56)
[2017-12-29] MEDS: HEPARIN 5,000 UNIT/0.5 ML VIAL SC ×2 (08:52→20:59)
[2017-12-29 14:27] LABS: ADD MAN DIFF? NO
[2017-12-29 14:30] LABS: WHITE BLOOD COUNT 9.3 10^3/ul (4.8-10.8)
[2017-12-29 14:30] LABS: BASOPHILS % 0.3 % (0.0-2.0); EOSINOPHILS # 0.5 10^3/ul (0.0-0.5); EOSINOPHILS % 4.8 % (0.0-7.0); HEMATOCRIT 22.9 % (37.0-47.0); HEMOGLOBIN 7.7 g/dl (12.0-16.0); LYMPHOCYTES # 2.6 10^3/ul (0.8-2.9); LYMPHOCYTES % 28.1 % (15.0-51.0); MEAN CORPUSCULAR HEMOGLOBIN 32.4 pg (29.0-33.0); MEAN CORPUSCULAR HGB CONC 33.6 g/dl (32.0-37.0); MEAN CORPUSCULAR VOLUME 96.2 fl (82.0-101.0); MEAN PLATELET VOLUME 11.4 fl (7.4-10.4); MONOCYTE # 1.1 10^3/ul (0.3-0.9); MONOCYTES % 11.7 % (0.0-11.0); NEUTROPHIL # 5.1 10^3/ul (1.6-7.5); NEUTROPHILS % 54.1 % (39.0-77.0); PLATELET COUNT 249 10^3/UL (140-415); RED BLOOD COUNT 2.38 10^6/ul (4.20-5.40); RED CELL DISTRIBUTION WIDTH 14.4 % (11.5-14.5)
[2017-12-29] MEDS: INSULIN GLARGINE [LANtus] 3 ML PEN SC (20:59)
[2017-12-30] MEDS: INSULIN ASPART [NOVOLOG] 3 ML PEN SC ×4 (06:00→17:46)
[2017-12-30] MEDS: LEVOTHYROXINE 125 MCG TAB GTB (07:36)
[2017-12-30 08:52] LABS: ADD MAN DIFF? NO
[2017-12-30 09:00] LABS: WHITE BLOOD COUNT 9.5 10^3/ul (4.8-10.8)
[2017-12-30 09:00] LABS: BASOPHILS % 0.3 % (0.0-2.0); EOSINOPHILS # 0.5 10^3/ul (0.0-0.5); HEMATOCRIT 22.7 % (37.0-47.0); HEMOGLOBIN 7.5 g/dl (12.0-16.0); LYMPHOCYTES # 2.1 10^3/ul (0.8-2.9); MEAN CORPUSCULAR HEMOGLOBIN 31.8 pg (29.0-33.0); MEAN CORPUSCULAR VOLUME 96.2 fl (82.0-101.0); MEAN PLATELET VOLUME 11.4 fl (7.4-10.4); MONOCYTE # 0.9 10^3/ul (0.3-0.9); MONOCYTES % 9.5 % (0.0-11.0); NEUTROPHIL # 5.9 10^3/ul (1.6-7.5); NEUTROPHILS % 62.5 % (39.0-77.0); PLATELET COUNT 244 10^3/UL (140-415); RED BLOOD COUNT 2.36 10^6/ul (4.20-5.40); RED CELL DISTRIBUTION WIDTH 14.5 % (11.5-14.5)
[2017-12-30] MEDS: AMLODIPINE 10 MG TAB GTB ×2 (09:18→10:25)
[2017-12-30] MEDS: MINOXIDIL 2.5 MG TAB GTB ×2 (09:18→10:25)
[2017-12-30] MEDS: ASCORBIC ACID 500 MG TAB GTB ×2 (09:18→10:25)
[2017-12-30] MEDS: RIFAMPIN 300 MG CAP GTB ×2 (09:18→10:25)
[2017-12-30] MEDS: RISPERIDONE 1 MG TAB GTB ×2 (09:19→10:26)
[2017-12-30] MEDS: SEVELAMER CARBONATE 0.8 GM PKT PO ×4 (09:20→21:30)
[2017-12-30] MEDS: LEVETIRACETAM (100 MG/ML) 5ML CUP GTB ×3 (09:20→21:41)
[2017-12-30] MEDS: SEVELAMER CARBONATE 2.4 GM PKT PO ×4 (09:20→21:30)
[2017-12-30] MEDS: MULTIVIT/CA CARB/B CMPLX/FA TAB GTB ×2 (09:21→10:26)
[2017-12-30] MEDS: HEPARIN 5,000 UNIT/0.5 ML VIAL SC ×2 (09:24→21:39)
[2017-12-30] MEDS: NYSTATIN 15 GM OINT TOP ×3 (09:41→21:41)
[2017-12-30 10:14] LABS: ANION GAP 17 (8-16); BLOOD UREA NITROGEN 54 mg/dl (7-20); CALCIUM 10.8 mg/dl (8.4-10.2); CARBON DIOXIDE 28 mmol/L (21-31); CHLORIDE 101 mmol/L (97-110); CREATININE 3.79 mg/dl (0.44-1.00); GLUCOSE 106 mg/dl (70-220); MAGNESIUM 2.7 mg/dl (1.7-2.5); PHOSPHORUS 3.1 mg/dl (2.5-4.9); POTASSIUM 4.4 mmol/L (3.5-5.1); SODIUM 142 mmol/L (135-144)
[2017-12-30] MEDS: BALSAM PERU/CASTOR OIL 60 GM TUBE TOP ×2 (10:27→21:41)
[2017-12-30] MEDS: NYSTATIN 30 GM POWDER BTL TOP ×2 (10:27→21:41)
[2017-12-30] MEDS: FLUOCINONIDE 0.05% 15 GM CR TOP ×2 (10:27→21:41)
[2017-12-30] MEDS: INSULIN GLARGINE [LANtus] 3 ML PEN SC (20:00)
[2017-12-30] MEDS: HEPARIN 1000 UNITS/ML 10 ML INJ CATHETER (21:09)
[2017-12-31] MEDS: INSULIN ASPART [NOVOLOG] 3 ML PEN SC ×4 (01:08→18:00)
[2017-12-31] MEDS: LEVOTHYROXINE 125 MCG TAB GTB (06:08)
[2017-12-31] MEDS: RISPERIDONE 1 MG TAB GTB (09:58)
[2017-12-31] MEDS: LEVETIRACETAM (100 MG/ML) 5ML CUP GTB ×2 (09:58→21:15)
[2017-12-31] MEDS: RIFAMPIN 300 MG CAP GTB (09:59)
[2017-12-31] MEDS: ASCORBIC ACID 500 MG TAB GTB (10:00)
[2017-12-31] MEDS: MINOXIDIL 2.5 MG TAB GTB (10:00)
[2017-12-31] MEDS: MULTIVIT/CA CARB/B CMPLX/FA TAB GTB (10:01)
[2017-12-31] MEDS: SEVELAMER CARBONATE 2.4 GM PKT PO ×3 (10:01→21:16)
[2017-12-31] MEDS: AMLODIPINE 10 MG TAB GTB (10:01)
[2017-12-31] MEDS: SEVELAMER CARBONATE 0.8 GM PKT PO ×3 (10:02→21:16)
[2017-12-31] MEDS: BALSAM PERU/CASTOR OIL 60 GM TUBE TOP ×2 (10:02→21:16)
[2017-12-31] MEDS: NYSTATIN 15 GM OINT TOP ×3 (10:02→21:17)
[2017-12-31] MEDS: FLUOCINONIDE 0.05% 15 GM CR TOP ×2 (10:03→21:17)
[2017-12-31] MEDS: NYSTATIN 30 GM POWDER BTL TOP ×2 (10:24→12:54)
[2017-12-31] MEDS: HEPARIN 5,000 UNIT/0.5 ML VIAL SC ×2 (10:29→21:25)
[2017-12-31] MEDS: INSULIN GLARGINE [LANtus] 3 ML PEN SC (21:25)
[2018-01-01] MEDS: INSULIN ASPART [NOVOLOG] 3 ML PEN SC ×4 (05:46→18:00)
[2018-01-01] MEDS: LEVOTHYROXINE 125 MCG TAB GTB (06:17)
[2018-01-01 07:49] LABS: ADD MAN DIFF? NO
[2018-01-01 07:51] LABS: BASOPHIL # 0.1 10^3/ul (0.0-0.1); BASOPHILS % 0.5 % (0.0-2.0); EOSINOPHILS # 0.4 10^3/ul (0.0-0.5); EOSINOPHILS % 3.9 % (0.0-7.0); HEMATOCRIT 23.6 % (37.0-47.0); LYMPHOCYTES # 2.4 10^3/ul (0.8-2.9); LYMPHOCYTES % 26.3 % (15.0-51.0); MEAN CORPUSCULAR HEMOGLOBIN 33.1 pg (29.0-33.0); MEAN CORPUSCULAR HGB CONC 33.9 g/dl (32.0-37.0); MEAN CORPUSCULAR VOLUME 97.5 fl (82.0-101.0); MEAN PLATELET VOLUME 11.4 fl (7.4-10.4); MONOCYTE # 0.9 10^3/ul (0.3-0.9); MONOCYTES % 9.6 % (0.0-11.0); NEUTROPHIL # 5.4 10^3/ul (1.6-7.5); NEUTROPHILS % 58.5 % (39.0-77.0); PLATELET COUNT 265 10^3/UL (140-415); RED BLOOD COUNT 2.42 10^6/ul (4.20-5.40); RED CELL DISTRIBUTION WIDTH 14.6 % (11.5-14.5)
[2018-01-01 07:51] LABS: WHITE BLOOD COUNT 9.3 10^3/ul (4.8-10.8)
[2018-01-01 08:30] LABS: ANION GAP 18 (8-16); BLOOD UREA NITROGEN 56 mg/dl (7-20); CARBON DIOXIDE 31 mmol/L (21-31); CHLORIDE 99 mmol/L (97-110); CREATININE 3.96 mg/dl (0.44-1.00); GLUCOSE 152 mg/dl (70-220); MAGNESIUM 2.7 mg/dl (1.7-2.5); PHOSPHORUS 2.4 mg/dl (2.5-4.9); SODIUM 144 mmol/L (135-144)
[2018-01-01] MEDS: LEVETIRACETAM (100 MG/ML) 5ML CUP GTB ×2 (08:44→20:31)
[2018-01-01] MEDS: MULTIVIT/CA CARB/B CMPLX/FA TAB GTB (08:45)
[2018-01-01] MEDS: RIFAMPIN 300 MG CAP GTB (08:45)
[2018-01-01] MEDS: ASCORBIC ACID 500 MG TAB GTB (08:46)
[2018-01-01] MEDS: MINOXIDIL 2.5 MG TAB GTB (08:46)
[2018-01-01] MEDS: AMLODIPINE 10 MG TAB GTB (08:46)
[2018-01-01] MEDS: SEVELAMER CARBONATE 2.4 GM PKT PO ×3 (08:47→20:31)
[2018-01-01] MEDS: SEVELAMER CARBONATE 0.8 GM PKT PO (08:47)
[2018-01-01] MEDS: RISPERIDONE 1 MG TAB GTB (08:47)
[2018-01-01] MEDS: BALSAM PERU/CASTOR OIL 60 GM TUBE TOP ×2 (08:48→20:35)
[2018-01-01] MEDS: NYSTATIN 30 GM POWDER BTL TOP ×2 (08:49→20:35)
[2018-01-01] MEDS: NYSTATIN 15 GM OINT TOP ×3 (08:49→20:35)
[2018-01-01] MEDS: HEPARIN 5,000 UNIT/0.5 ML VIAL SC ×2 (08:51→20:33)
[2018-01-01] MEDS: FLUOCINONIDE 0.05% 15 GM CR TOP ×2 (08:53→20:34)
[2018-01-01] MEDS: HEPARIN 1000 UNITS/ML 10 ML INJ CATHETER (12:31)
[2018-01-01] MEDS: INSULIN GLARGINE [LANtus] 3 ML PEN SC (20:33)
[2018-01-01] MEDS: ALBUMIN HUMAN 25% 100 ML IV (22:00)
[2018-01-02] MEDS: HEPARIN 1000 UNITS/ML 10 ML INJ CATHETER (01:02)
[2018-01-02] MEDS: INSULIN ASPART [NOVOLOG] 3 ML PEN SC ×5 (05:25→23:58)
[2018-01-02] MEDS: LEVOTHYROXINE 125 MCG TAB GTB (06:05)
[2018-01-02] MEDS: MULTIVIT/CA CARB/B CMPLX/FA TAB GTB (08:20)
[2018-01-02] MEDS: RIFAMPIN 300 MG CAP GTB (08:20)
[2018-01-02] MEDS: AMLODIPINE 10 MG TAB GTB (08:20)
[2018-01-02] MEDS: LEVETIRACETAM (100 MG/ML) 5ML CUP GTB ×2 (08:20→20:58)
[2018-01-02] MEDS: ASCORBIC ACID 500 MG TAB GTB (08:21)
[2018-01-02] MEDS: RISPERIDONE 1 MG TAB GTB (08:21)
[2018-01-02] MEDS: SEVELAMER CARBONATE 2.4 GM PKT PO ×3 (08:21→20:58)
[2018-01-02] MEDS: BALSAM PERU/CASTOR OIL 60 GM TUBE TOP ×2 (08:22→20:57)
[2018-01-02] MEDS: NYSTATIN 30 GM POWDER BTL TOP ×2 (08:22→20:57)
[2018-01-02] MEDS: NYSTATIN 15 GM OINT TOP ×3 (08:23→20:57)
[2018-01-02] MEDS: FLUOCINONIDE 0.05% 15 GM CR TOP ×2 (08:23→20:58)
[2018-01-02] MEDS: MINOXIDIL 2.5 MG TAB GTB (08:29)
[2018-01-02] MEDS: HEPARIN 5,000 UNIT/0.5 ML VIAL SC ×2 (08:40→21:01)
[2018-01-02] MEDS: INSULIN GLARGINE [LANtus] 3 ML PEN SC (21:01)
[2018-01-03] MEDS: INSULIN ASPART [NOVOLOG] 3 ML PEN SC ×4 (05:35→23:57)
[2018-01-03] MEDS: LEVOTHYROXINE 125 MCG TAB GTB (06:36)
[2018-01-03 08:32] LABS: ADD MAN DIFF? NO
[2018-01-03 08:39] LABS: BASOPHILS % 0.3 % (0.0-2.0); EOSINOPHILS # 0.5 10^3/ul (0.0-0.5); EOSINOPHILS % 4.5 % (0.0-7.0); HEMATOCRIT 21.3 % (37.0-47.0); HEMOGLOBIN 7.2 g/dl (12.0-16.0); LYMPHOCYTES # 2.1 10^3/ul (0.8-2.9); LYMPHOCYTES % 18.9 % (15.0-51.0); MEAN CORPUSCULAR HEMOGLOBIN 32.7 pg (29.0-33.0); MEAN CORPUSCULAR HGB CONC 33.8 g/dl (32.0-37.0); MEAN CORPUSCULAR VOLUME 96.8 fl (82.0-101.0); MEAN PLATELET VOLUME 11.7 fl (7.4-10.4); MONOCYTE # 0.9 10^3/ul (0.3-0.9); MONOCYTES % 8.3 % (0.0-11.0); NEUTROPHIL # 7.4 10^3/ul (1.6-7.5); NEUTROPHILS % 67.3 % (39.0-77.0); PLATELET COUNT 232 10^3/UL (140-415); RED CELL DISTRIBUTION WIDTH 14.6 % (11.5-14.5)
[2018-01-03] MEDS: MINOXIDIL 2.5 MG TAB GTB (09:00)
[2018-01-03] MEDS: AMLODIPINE 10 MG TAB GTB (09:00)
[2018-01-03 09:02] LABS: ANION GAP 17 (8-16); BLOOD UREA NITROGEN 45 mg/dl (7-20); CARBON DIOXIDE 30 mmol/L (21-31); CHLORIDE 99 mmol/L (97-110); CREATININE 3.26 mg/dl (0.44-1.00); GLUCOSE 114 mg/dl (70-220); MAGNESIUM 2.6 mg/dl (1.7-2.5); PHOSPHORUS 2.3 mg/dl (2.5-4.9); POTASSIUM 4.1 mmol/L (3.5-5.1); SODIUM 142 mmol/L (135-144)
[2018-01-03] MEDS: RIFAMPIN 300 MG CAP GTB (09:37)
[2018-01-03] MEDS: LEVETIRACETAM (100 MG/ML) 5ML CUP GTB ×2 (09:37→20:49)
[2018-01-03] MEDS: SEVELAMER CARBONATE 2.4 GM PKT PO ×3 (09:38→20:49)
[2018-01-03] MEDS: MULTIVIT/CA CARB/B CMPLX/FA TAB GTB (09:38)
[2018-01-03] MEDS: ASCORBIC ACID 500 MG TAB GTB (09:38)
[2018-01-03] MEDS: RISPERIDONE 1 MG TAB GTB (09:38)
[2018-01-03] MEDS: NYSTATIN 30 GM POWDER BTL TOP ×2 (09:39→20:50)
[2018-01-03] MEDS: FLUOCINONIDE 0.05% 15 GM CR TOP ×2 (09:39→20:50)
[2018-01-03] MEDS: NYSTATIN 15 GM OINT TOP ×3 (09:40→20:50)
[2018-01-03] MEDS: BALSAM PERU/CASTOR OIL 60 GM TUBE TOP ×2 (09:40→20:50)
[2018-01-03] MEDS: HEPARIN 5,000 UNIT/0.5 ML VIAL SC ×2 (09:41→21:37)
[2018-01-03] MEDS: SEVELAMER CARBONATE 0.8 GM PKT PO (13:00)
[2018-01-03] MEDS: INSULIN GLARGINE [LANtus] 3 ML PEN SC (21:37)
[2018-01-04] MEDS: LEVOTHYROXINE 125 MCG TAB GTB (06:00)
[2018-01-04] MEDS: INSULIN ASPART [NOVOLOG] 3 ML PEN SC ×4 (06:01→23:30)
[2018-01-04] MEDS ORDERED: SEVELAMER 800 MG TAB PO (09:00)
[2018-01-04] MEDS ORDERED: SEVELAMER CARBONATE 2.4 GM PKT PO (09:00)
[2018-01-04 09:27] LABS: ADD MAN DIFF? NO
[2018-01-04 09:33] LABS: WHITE BLOOD COUNT 10.5 10^3/ul (4.8-10.8)
[2018-01-04 09:33] LABS: BASOPHILS % 0.3 % (0.0-2.0); EOSINOPHILS # 0.5 10^3/ul (0.0-0.5); EOSINOPHILS % 5.1 % (0.0-7.0); HEMOGLOBIN 7.1 g/dl (12.0-16.0); LYMPHOCYTES # 2.5 10^3/ul (0.8-2.9); LYMPHOCYTES % 23.5 % (15.0-51.0); MEAN CORPUSCULAR HEMOGLOBIN 33.2 pg (29.0-33.0); MEAN CORPUSCULAR HGB CONC 33.8 g/dl (32.0-37.0); MEAN CORPUSCULAR VOLUME 98.1 fl (82.0-101.0); MEAN PLATELET VOLUME 12.1 fl (7.4-10.4); MONOCYTES % 9.2 % (0.0-11.0); NEUTROPHIL # 6.4 10^3/ul (1.6-7.5); PLATELET COUNT 224 10^3/UL (140-415); RED BLOOD COUNT 2.14 10^6/ul (4.20-5.40); RED CELL DISTRIBUTION WIDTH 14.6 % (11.5-14.5)
[2018-01-04 10:11] LABS: IRON 144 ug/dl (35-150)
[2018-01-04 10:21] LABS: % IRON SATURATION 78 % SAT (22-52); TOTAL IRON BINDING CAPACITY 184 ug/dl (241-421)
[2018-01-04] MEDS: HEPARIN 1000 UNITS/ML 10 ML INJ CATHETER (12:58)
[2018-01-04] MEDS: NYSTATIN 15 GM OINT TOP ×3 (13:00→21:04)
[2018-01-04] MEDS: SEVELAMER CARBONATE 2.4 GM PKT PO ×3 (13:00→21:03)
[2018-01-04] MEDS: LEVETIRACETAM (100 MG/ML) 5ML CUP GTB ×2 (15:10→21:03)
[2018-01-04] MEDS: SEVELAMER CARBONATE 0.8 GM PKT PO ×4 (15:10→21:47)
[2018-01-04] MEDS: ASCORBIC ACID 500 MG TAB GTB (15:11)
[2018-01-04] MEDS: MULTIVIT/CA CARB/B CMPLX/FA TAB GTB (15:11)
[2018-01-04] MEDS: RISPERIDONE 1 MG TAB GTB (15:12)
[2018-01-04] MEDS: RIFAMPIN 300 MG CAP GTB (15:16)
[2018-01-04] MEDS: AMLODIPINE 10 MG TAB GTB (15:17)
[2018-01-04] MEDS: MINOXIDIL 2.5 MG TAB GTB (15:18)
[2018-01-04] MEDS: NYSTATIN 30 GM POWDER BTL TOP ×2 (15:20→21:04)
[2018-01-04] MEDS: FLUOCINONIDE 0.05% 15 GM CR TOP ×2 (15:20→21:04)
[2018-01-04] MEDS: BALSAM PERU/CASTOR OIL 60 GM TUBE TOP ×2 (15:21→21:04)
[2018-01-04] MEDS: HEPARIN 5,000 UNIT/0.5 ML VIAL SC ×2 (15:37→21:25)
[2018-01-04] MEDS: EPOETIN 10000 UNITS/1 ML INJ (ESRD) SC (17:13)
[2018-01-04] MEDS: INSULIN GLARGINE [LANtus] 3 ML PEN SC (21:26)
[2018-01-05] MEDS: INSULIN ASPART [NOVOLOG] 3 ML PEN SC ×3 (06:00→17:35)
[2018-01-05] MEDS: LEVOTHYROXINE 125 MCG TAB GTB (06:33)
[2018-01-05] MEDS: RIFAMPIN 300 MG CAP GTB (08:05)
[2018-01-05] MEDS: SEVELAMER CARBONATE 2.4 GM PKT PO ×3 (08:05→20:06)
[2018-01-05] MEDS: LEVETIRACETAM (100 MG/ML) 5ML CUP GTB ×2 (08:05→20:06)
[2018-01-05] MEDS: MULTIVIT/CA CARB/B CMPLX/FA TAB GTB (08:05)
[2018-01-05] MEDS: RISPERIDONE 1 MG TAB GTB (08:05)
[2018-01-05] MEDS: ASCORBIC ACID 500 MG TAB GTB (08:06)
[2018-01-05] MEDS: AMLODIPINE 10 MG TAB GTB (08:12)
[2018-01-05] MEDS: FLUOCINONIDE 0.05% 15 GM CR TOP ×2 (08:13→20:20)
[2018-01-05] MEDS: SEVELAMER CARBONATE 0.8 GM PKT PO ×3 (08:13→20:06)
[2018-01-05] MEDS: BALSAM PERU/CASTOR OIL 60 GM TUBE TOP ×2 (08:14→20:19)
[2018-01-05] MEDS: NYSTATIN 15 GM OINT TOP ×3 (08:14→20:20)
[2018-01-05] MEDS: NYSTATIN 30 GM POWDER BTL TOP ×2 (08:15→20:20)
[2018-01-05] MEDS: HEPARIN 5,000 UNIT/0.5 ML VIAL SC ×2 (08:29→20:19)
[2018-01-05] MEDS: EPOETIN 10000 UNITS/1 ML INJ (ESRD) SC (17:37)
[2018-01-05] MEDS: INSULIN GLARGINE [LANtus] 3 ML PEN SC (20:50)
[2018-01-06] MEDS: INSULIN ASPART [NOVOLOG] 3 ML PEN SC ×5 (00:44→23:10)
[2018-01-06] MEDS: ALBUMIN HUMAN 25% 100 ML IV (03:50)
[2018-01-06] MEDS: HEPARIN 1000 UNITS/ML 10 ML INJ CATHETER (06:49)
[2018-01-06] MEDS: LEVOTHYROXINE 125 MCG TAB GTB (06:56)
[2018-01-06 08:14] LABS: WHITE BLOOD COUNT 8.2 10^3/ul (4.8-10.8)
[2018-01-06 08:14] LABS: ABNORMAL IP MESSAGE 1; HEMATOCRIT 19.5 % (37.0-47.0); MEAN CORPUSCULAR HEMOGLOBIN 33.3 pg (29.0-33.0); MEAN CORPUSCULAR HGB CONC 34.4 g/dl (32.0-37.0); MEAN PLATELET VOLUME 11.7 fl (7.4-10.4); PLATELET COUNT 213 10^3/UL (140-415); RED BLOOD COUNT 2.01 10^6/ul (4.20-5.40); RED CELL DISTRIBUTION WIDTH 14.8 % (11.5-14.5)
[2018-01-06 08:17] LABS: POSITIVE DIFF @See below
[2018-01-06 08:19] LABS: ADD MAN DIFF? YES; HEMOGLOBIN 6.7 g/dl (12.0-16.0)
[2018-01-06] MEDS: LEVETIRACETAM (100 MG/ML) 5ML CUP GTB ×2 (08:21→20:05)
[2018-01-06] MEDS: SEVELAMER CARBONATE 2.4 GM PKT PO ×3 (08:22→20:05)
[2018-01-06] MEDS: RIFAMPIN 300 MG CAP GTB (08:22)
[2018-01-06] MEDS: MULTIVIT/CA CARB/B CMPLX/FA TAB GTB (08:22)
[2018-01-06] MEDS: SEVELAMER CARBONATE 0.8 GM PKT PO ×3 (08:22→20:05)
[2018-01-06] MEDS: RISPERIDONE 1 MG TAB GTB (08:23)
[2018-01-06] MEDS: ASCORBIC ACID 500 MG TAB GTB (08:23)
[2018-01-06] MEDS: AMLODIPINE 10 MG TAB GTB (08:23)
[2018-01-06] MEDS: FLUOCINONIDE 0.05% 15 GM CR TOP ×2 (08:24→20:06)
[2018-01-06] MEDS: BALSAM PERU/CASTOR OIL 60 GM TUBE TOP ×2 (08:24→20:06)
[2018-01-06] MEDS: NYSTATIN 15 GM OINT TOP ×3 (08:24→20:06)
[2018-01-06] MEDS: NYSTATIN 30 GM POWDER BTL TOP ×2 (08:25→20:06)
[2018-01-06 08:29] LABS: ANION GAP 16 (8-16); BLOOD UREA NITROGEN 15 mg/dl (7-20); CALCIUM 9.9 mg/dl (8.4-10.2); CARBON DIOXIDE 32 mmol/L (21-31); CHLORIDE 102 mmol/L (97-110); CREATININE 1.35 mg/dl (0.44-1.00); GLUCOSE 128 mg/dl (70-220); MAGNESIUM 2.1 mg/dl (1.7-2.5); PHOSPHORUS 1.2 mg/dl (2.5-4.9); POTASSIUM 3.5 mmol/L (3.5-5.1); SODIUM 146 mmol/L (135-144)
[2018-01-06] MEDS: HEPARIN 5,000 UNIT/0.5 ML VIAL SC ×2 (08:39→20:09)
[2018-01-06 09:57] LABS: ANISOCYTOSIS 1+ (0-0); BAND NEUTROPHILS #M 0.2 10^3/ul (0.0-0.6); BAND NEUTROPHILS % (M) 3 % (0-4); EOSINOPHILS % (M) 2 % (0-7); GIANT THROMBO% (M) 2 % (0-0); LYMPHOCYTES #M 1.4 10^3/ul (0.8-2.9); LYMPHOCYTES % (M) 18 % (15-51); METAMYELOCYTES #M 0.1 10^3/ul (0.0-0.0); METAMYELOCYTES %M 2 % (0-0); MICROCYTOSIS 1+ (0-0); MONOCYTE #M 0.5 10^3/ul (0.3-0.9); MONOCYTES % (M) 7 % (0-11); PLATELET ESTIMATE NORMAL; POLYCHROMASIA 3+ (0-0); REACTIVE LYMPHOCYTES% (M) 1 % (0-0); SEG NEUT #M 5.5 10^3/ul (1.6-7.5); SEGMENTED NEUTROPHILS (M) % 67 % (39-77); SMUDGE%M 6 % (0-0)
[2018-01-06 12:37] LABS: IMMEDIATE SPIN CROSSMATCH 1 1
[2018-01-06 17:21] LABS: PTH CALCIUM 11.1 mg/dL (8.6-10.4)
[2018-01-06] MEDS: INSULIN GLARGINE [LANtus] 3 ML PEN SC (19:52)
[2018-01-07] MEDS: INSULIN ASPART [NOVOLOG] 3 ML PEN SC ×4 (05:49→23:28)
[2018-01-07] MEDS: LEVOTHYROXINE 125 MCG TAB GTB (05:51)
[2018-01-07 08:11] LABS: ADD MAN DIFF? NO
[2018-01-07] MEDS: LEVETIRACETAM (100 MG/ML) 5ML CUP GTB ×2 (08:11→20:19)
[2018-01-07] MEDS: ASCORBIC ACID 500 MG TAB GTB (08:12)
[2018-01-07] MEDS: RIFAMPIN 300 MG CAP GTB (08:12)
[2018-01-07] MEDS: MULTIVIT/CA CARB/B CMPLX/FA TAB GTB (08:12)
[2018-01-07] MEDS: RISPERIDONE 1 MG TAB GTB (08:12)
[2018-01-07] MEDS: SEVELAMER CARBONATE 2.4 GM PKT PO ×3 (08:13→20:19)
[2018-01-07] MEDS: SEVELAMER CARBONATE 0.8 GM PKT PO ×3 (08:14→20:18)
[2018-01-07 08:25] LABS: WHITE BLOOD COUNT 9.6 10^3/ul (4.8-10.8)
[2018-01-07 08:25] LABS: BASOPHIL # 0.1 10^3/ul (0.0-0.1); BASOPHILS % 0.5 % (0.0-2.0); EOSINOPHILS # 0.4 10^3/ul (0.0-0.5); EOSINOPHILS % 4.1 % (0.0-7.0); HEMATOCRIT 24.5 % (37.0-47.0); HEMOGLOBIN 8.3 g/dl (12.0-16.0); LYMPHOCYTES # 2.1 10^3/ul (0.8-2.9); LYMPHOCYTES % 22.2 % (15.0-51.0); MEAN CORPUSCULAR HEMOGLOBIN 31.6 pg (29.0-33.0); MEAN CORPUSCULAR HGB CONC 33.9 g/dl (32.0-37.0); MEAN CORPUSCULAR VOLUME 93.2 fl (82.0-101.0); MEAN PLATELET VOLUME 11.8 fl (7.4-10.4); MONOCYTES % 10.1 % (0.0-11.0); NEUTROPHIL # 5.9 10^3/ul (1.6-7.5); NEUTROPHILS % 61.5 % (39.0-77.0); NUCLEATED RED BLOOD CELLS% 0.2 /100WBC (0.0-0.0); PLATELET COUNT 228 10^3/UL (140-415); RED BLOOD COUNT 2.63 10^6/ul (4.20-5.40); RED CELL DISTRIBUTION WIDTH 17.2 % (11.5-14.5)
[2018-01-07] MEDS: AMLODIPINE 10 MG TAB GTB (08:32)
[2018-01-07] MEDS: NYSTATIN 15 GM OINT TOP ×3 (08:33→20:20)
[2018-01-07] MEDS: FLUOCINONIDE 0.05% 15 GM CR TOP ×2 (08:33→20:20)
[2018-01-07] MEDS: BALSAM PERU/CASTOR OIL 60 GM TUBE TOP ×2 (08:33→20:20)
[2018-01-07] MEDS: NYSTATIN 30 GM POWDER BTL TOP ×2 (08:34→20:20)
[2018-01-07] MEDS: HEPARIN 5,000 UNIT/0.5 ML VIAL SC ×2 (08:35→20:21)
[2018-01-07 08:47] LABS: PTH INTACT 8 pg/mL (14-64)
[2018-01-07] MEDS: EPOETIN 10000 UNITS/1 ML INJ (ESRD) SC (17:16)
[2018-01-07] MEDS: INSULIN GLARGINE [LANtus] 3 ML PEN SC (19:48)
[2018-01-08] MEDS: INSULIN ASPART [NOVOLOG] 3 ML PEN SC ×3 (05:38→17:36)
[2018-01-08] MEDS: LEVOTHYROXINE 125 MCG TAB GTB (05:38)
[2018-01-08] MEDS: FLUOCINONIDE 0.05% 15 GM CR TOP ×2 (09:00→20:49)
[2018-01-08 09:20] LABS: ADD MAN DIFF? NO
[2018-01-08 09:28] LABS: BASOPHILS % 0.4 % (0.0-2.0); EOSINOPHILS # 0.5 10^3/ul (0.0-0.5); EOSINOPHILS % 4.6 % (0.0-7.0); HEMATOCRIT 24.9 % (37.0-47.0); HEMOGLOBIN 8.4 g/dl (12.0-16.0); LYMPHOCYTES # 2.1 10^3/ul (0.8-2.9); LYMPHOCYTES % 20.5 % (15.0-51.0); MEAN CORPUSCULAR HEMOGLOBIN 31.8 pg (29.0-33.0); MEAN CORPUSCULAR HGB CONC 33.7 g/dl (32.0-37.0); MEAN CORPUSCULAR VOLUME 94.3 fl (82.0-101.0); MEAN PLATELET VOLUME 11.8 fl (7.4-10.4); MONOCYTES % 10.3 % (0.0-11.0); NEUTROPHIL # 6.3 10^3/ul (1.6-7.5); NEUTROPHILS % 62.7 % (39.0-77.0); NUCLEATED RED BLOOD CELLS% 0.4 /100WBC (0.0-0.0); PLATELET COUNT 225 10^3/UL (140-415); RED BLOOD COUNT 2.64 10^6/ul (4.20-5.40); RED CELL DISTRIBUTION WIDTH 17.3 % (11.5-14.5)
[2018-01-08 09:28] LABS: WHITE BLOOD COUNT 10.1 10^3/ul (4.8-10.8)
[2018-01-08] MEDS: SEVELAMER CARBONATE 2.4 GM PKT PO ×3 (09:58→20:49)
[2018-01-08] MEDS: SEVELAMER CARBONATE 0.8 GM PKT PO ×3 (09:58→20:48)
[2018-01-08] MEDS: ASCORBIC ACID 500 MG TAB GTB (09:59)
[2018-01-08] MEDS: MULTIVIT/CA CARB/B CMPLX/FA TAB GTB (09:59)
[2018-01-08] MEDS: RIFAMPIN 300 MG CAP GTB (09:59)
[2018-01-08] MEDS: LEVETIRACETAM (100 MG/ML) 5ML CUP GTB ×2 (10:00→20:48)
[2018-01-08] MEDS: RISPERIDONE 1 MG TAB GTB (10:01)
[2018-01-08] MEDS: AMLODIPINE 10 MG TAB GTB (10:01)
[2018-01-08] MEDS: NYSTATIN 15 GM OINT TOP ×3 (10:05→20:50)
[2018-01-08] MEDS: NYSTATIN 30 GM POWDER BTL TOP ×2 (10:05→20:49)
[2018-01-08] MEDS: BALSAM PERU/CASTOR OIL 60 GM TUBE TOP ×2 (10:05→20:50)
[2018-01-08 10:06] LABS: ANION GAP 21 (8-16); BLOOD UREA NITROGEN 62 mg/dl (7-20); CALCIUM 10.8 mg/dl (8.4-10.2); CARBON DIOXIDE 28 mmol/L (21-31); CHLORIDE 100 mmol/L (97-110); CREATININE 3.87 mg/dl (0.44-1.00); GLUCOSE 109 mg/dl (70-220); MAGNESIUM 2.7 mg/dl (1.7-2.5); PHOSPHORUS 1.5 mg/dl (2.5-4.9); POTASSIUM 4.1 mmol/L (3.5-5.1); SODIUM 145 mmol/L (135-144)
[2018-01-08] MEDS: HEPARIN 5,000 UNIT/0.5 ML VIAL SC ×2 (10:06→21:12)
[2018-01-08] MEDS: HEPARIN 1000 UNITS/ML 10 ML INJ CATHETER (15:06)
[2018-01-08] MEDS: INSULIN GLARGINE [LANtus] 3 ML PEN SC (21:13)
[2018-01-08] MEDS: DIPHENHYDRAMINE 2.5 MG/ML 5ML CUP GTB (22:41)
[2018-01-09] MEDS: INSULIN ASPART [NOVOLOG] 3 ML PEN SC ×4 (00:44→17:17)
[2018-01-09] MEDS: LEVOTHYROXINE 125 MCG TAB GTB (06:16)
[2018-01-09 08:06] LABS: HEMATOCRIT 25.6 % (37.0-47.0)
[2018-01-09 08:06] LABS: HEMOGLOBIN 8.7 g/dl (12.0-16.0)
[2018-01-09] MEDS: SEVELAMER CARBONATE 0.8 GM PKT PO ×3 (09:20→21:25)
[2018-01-09] MEDS: MULTIVIT/CA CARB/B CMPLX/FA TAB GTB (09:20)
[2018-01-09] MEDS: SEVELAMER CARBONATE 2.4 GM PKT PO ×3 (09:20→21:25)
[2018-01-09] MEDS: LEVETIRACETAM (100 MG/ML) 5ML CUP GTB ×2 (09:21→21:25)
[2018-01-09] MEDS: AMLODIPINE 10 MG TAB GTB (09:21)
[2018-01-09] MEDS: ASCORBIC ACID 500 MG TAB GTB (09:21)
[2018-01-09] MEDS: RISPERIDONE 1 MG TAB GTB (09:21)
[2018-01-09] MEDS: HEPARIN 5,000 UNIT/0.5 ML VIAL SC ×2 (09:23→22:05)
[2018-01-09] MEDS: RIFAMPIN 300 MG CAP GTB (09:27)
[2018-01-09] MEDS: NYSTATIN 15 GM OINT TOP ×3 (09:28→21:00)
[2018-01-09] MEDS: NYSTATIN 30 GM POWDER BTL TOP ×2 (09:28→21:00)
[2018-01-09] MEDS: FLUOCINONIDE 0.05% 15 GM CR TOP ×2 (09:28→21:00)
[2018-01-09] MEDS: BALSAM PERU/CASTOR OIL 60 GM TUBE TOP ×2 (09:28→21:00)
[2018-01-09] MEDS: EPOETIN 10000 UNITS/1 ML INJ (ESRD) SC (17:18)
[2018-01-09] MEDS: INSULIN GLARGINE [LANtus] 3 ML PEN SC (22:05)
[2018-01-10] MEDS: INSULIN ASPART [NOVOLOG] 3 ML PEN SC ×5 (01:15→23:49)
[2018-01-10] MEDS: LEVOTHYROXINE 125 MCG TAB GTB (06:00)
[2018-01-10] MEDS: RIFAMPIN 300 MG CAP GTB (08:03)
[2018-01-10] MEDS: SEVELAMER CARBONATE 0.8 GM PKT PO ×3 (08:04→22:59)
[2018-01-10] MEDS: ASCORBIC ACID 500 MG TAB GTB (08:04)
[2018-01-10] MEDS: SEVELAMER CARBONATE 2.4 GM PKT PO ×3 (08:04→22:59)
[2018-01-10] MEDS: AMLODIPINE 10 MG TAB GTB (08:04)
[2018-01-10] MEDS: RISPERIDONE 1 MG TAB GTB (08:04)
[2018-01-10] MEDS: MULTIVIT/CA CARB/B CMPLX/FA TAB GTB (08:04)
[2018-01-10] MEDS: LEVETIRACETAM (100 MG/ML) 5ML CUP GTB ×2 (08:04→22:59)
[2018-01-10] MEDS: HEPARIN 5,000 UNIT/0.5 ML VIAL SC ×2 (08:06→22:58)
[2018-01-10] MEDS: BALSAM PERU/CASTOR OIL 60 GM TUBE TOP ×2 (08:10→23:00)
[2018-01-10] MEDS: NYSTATIN 15 GM OINT TOP ×3 (08:10→22:59)
[2018-01-10] MEDS: NYSTATIN 30 GM POWDER BTL TOP ×2 (08:10→23:00)
[2018-01-10] MEDS: FLUOCINONIDE 0.05% 15 GM CR TOP ×2 (08:11→23:00)
[2018-01-10] MEDS: HEPARIN 1000 UNITS/ML 10 ML INJ CATHETER (15:00)
[2018-01-10] MEDS: INSULIN GLARGINE [LANtus] 3 ML PEN SC (22:58)
[2018-01-11] MEDS: LEVOTHYROXINE 125 MCG TAB GTB (06:48)
[2018-01-11] MEDS: INSULIN ASPART [NOVOLOG] 3 ML PEN SC ×3 (06:51→17:33)
[2018-01-11] MEDS: RIFAMPIN 300 MG CAP GTB (10:00)
[2018-01-11] MEDS: LEVETIRACETAM (100 MG/ML) 5ML CUP GTB ×2 (10:00→21:05)
[2018-01-11] MEDS: MULTIVIT/CA CARB/B CMPLX/FA TAB GTB (10:01)
[2018-01-11] MEDS: SEVELAMER CARBONATE 0.8 GM PKT PO ×3 (10:01→21:05)
[2018-01-11] MEDS: RISPERIDONE 1 MG TAB GTB (10:01)
[2018-01-11] MEDS: SEVELAMER CARBONATE 2.4 GM PKT PO ×3 (10:01→21:05)
[2018-01-11] MEDS: ASCORBIC ACID 500 MG TAB GTB (10:01)
[2018-01-11] MEDS: NYSTATIN 30 GM POWDER BTL TOP ×2 (10:02→21:06)
[2018-01-11] MEDS: AMLODIPINE 10 MG TAB GTB (10:02)
[2018-01-11] MEDS: NYSTATIN 15 GM OINT TOP ×3 (10:03→21:05)
[2018-01-11] MEDS: FLUOCINONIDE 0.05% 15 GM CR TOP ×2 (10:03→21:06)
[2018-01-11] MEDS: BALSAM PERU/CASTOR OIL 60 GM TUBE TOP ×2 (10:03→21:06)
[2018-01-11] MEDS: HEPARIN 5,000 UNIT/0.5 ML VIAL SC ×2 (10:11→21:08)
[2018-01-11] MEDS: INSULIN GLARGINE [LANtus] 3 ML PEN SC (21:03)
[2018-01-12] MEDS: INSULIN ASPART [NOVOLOG] 3 ML PEN SC ×4 (00:40→18:17)
[2018-01-12] MEDS: LEVOTHYROXINE 125 MCG TAB GTB (05:24)
[2018-01-12] MEDS: MULTIVIT/CA CARB/B CMPLX/FA TAB GTB (09:22)
[2018-01-12] MEDS: RIFAMPIN 300 MG CAP GTB (09:22)
[2018-01-12] MEDS: RISPERIDONE 1 MG TAB GTB (09:23)
[2018-01-12] MEDS: SEVELAMER CARBONATE 0.8 GM PKT PO ×3 (09:24→20:59)
[2018-01-12] MEDS: ASCORBIC ACID 500 MG TAB GTB (09:24)
[2018-01-12] MEDS: AMLODIPINE 10 MG TAB GTB (09:24)
[2018-01-12] MEDS: SEVELAMER CARBONATE 2.4 GM PKT PO ×3 (09:24→20:59)
[2018-01-12] MEDS: LEVETIRACETAM (100 MG/ML) 5ML CUP GTB ×2 (09:25→21:00)
[2018-01-12] MEDS: FLUOCINONIDE 0.05% 15 GM CR TOP ×2 (09:35→22:27)
[2018-01-12] MEDS: HEPARIN 5,000 UNIT/0.5 ML VIAL SC ×2 (09:35→21:21)
[2018-01-12] MEDS: BALSAM PERU/CASTOR OIL 60 GM TUBE TOP ×2 (09:35→22:29)
[2018-01-12] MEDS: NYSTATIN 15 GM OINT TOP ×3 (09:35→22:29)
[2018-01-12] MEDS: NYSTATIN 30 GM POWDER BTL TOP ×2 (09:35→22:27)
[2018-01-12] MEDS: EPOETIN 10000 UNITS/1 ML INJ (ESRD) SC (18:09)
[2018-01-12] MEDS: INSULIN GLARGINE [LANtus] 3 ML PEN SC (21:21)
[2018-01-13] MEDS: INSULIN ASPART [NOVOLOG] 3 ML PEN SC ×4 (00:09→18:38)
[2018-01-13] MEDS: LEVOTHYROXINE 125 MCG TAB GTB ×2 (06:43→10:47)
[2018-01-13] MEDS: AMLODIPINE 10 MG TAB GTB ×2 (09:00→15:52)
[2018-01-13 09:20] LABS: ADD MAN DIFF? NO
[2018-01-13 09:27] LABS: BASOPHILS % 0.3 % (0.0-2.0); EOSINOPHILS # 0.6 10^3/ul (0.0-0.5); EOSINOPHILS % 4.6 % (0.0-7.0); HEMATOCRIT 25.1 % (37.0-47.0); HEMOGLOBIN 8.3 g/dl (12.0-16.0); LYMPHOCYTES # 2.5 10^3/ul (0.8-2.9); LYMPHOCYTES % 19.6 % (15.0-51.0); MEAN CORPUSCULAR HEMOGLOBIN 32.9 pg (29.0-33.0); MEAN CORPUSCULAR HGB CONC 33.1 g/dl (32.0-37.0); MEAN CORPUSCULAR VOLUME 99.6 fl (82.0-101.0); MEAN PLATELET VOLUME 11.4 fl (7.4-10.4); MONOCYTE # 1.1 10^3/ul (0.3-0.9); MONOCYTES % 9.1 % (0.0-11.0); NEUTROPHIL # 8.2 10^3/ul (1.6-7.5); NEUTROPHILS % 65.6 % (39.0-77.0); NUCLEATED RED BLOOD CELLS% 0.3 /100WBC (0.0-0.0); PLATELET COUNT 289 10^3/UL (140-415); RED BLOOD COUNT 2.52 10^6/ul (4.20-5.40); RED CELL DISTRIBUTION WIDTH 21.2 % (11.5-14.5)
[2018-01-13 09:27] LABS: WHITE BLOOD COUNT 12.5 10^3/ul (4.8-10.8)
[2018-01-13 09:53] LABS: ANION GAP 21 (8-16); BLOOD UREA NITROGEN 90 mg/dl (7-20); CALCIUM 11.1 mg/dl (8.4-10.2); CARBON DIOXIDE 29 mmol/L (21-31); CHLORIDE 99 mmol/L (97-110); CREATININE 5.13 mg/dl (0.44-1.00); GLUCOSE 115 mg/dl (70-220); PHOSPHORUS 1.9 mg/dl (2.5-4.9); POTASSIUM 4.1 mmol/L (3.5-5.1); SODIUM 145 mmol/L (135-144)
[2018-01-13] MEDS: LEVETIRACETAM (100 MG/ML) 5ML CUP GTB ×2 (10:43→20:32)
[2018-01-13] MEDS: SEVELAMER CARBONATE 0.8 GM PKT PO ×3 (10:45→20:32)
[2018-01-13] MEDS: SEVELAMER CARBONATE 2.4 GM PKT PO ×3 (10:45→20:32)
[2018-01-13] MEDS: MULTIVIT/CA CARB/B CMPLX/FA TAB GTB (10:46)
[2018-01-13] MEDS: RISPERIDONE 1 MG TAB GTB (10:46)
[2018-01-13] MEDS: RIFAMPIN 300 MG CAP GTB (10:47)
[2018-01-13] MEDS: ASCORBIC ACID 500 MG TAB GTB (10:53)
[2018-01-13] MEDS: HEPARIN 5,000 UNIT/0.5 ML VIAL SC ×2 (11:13→20:48)
[2018-01-13] MEDS: FLUOCINONIDE 0.05% 15 GM CR TOP ×2 (11:14→20:41)
[2018-01-13] MEDS: NYSTATIN 30 GM POWDER BTL TOP ×2 (11:14→20:41)
[2018-01-13] MEDS: NYSTATIN 15 GM OINT TOP ×3 (11:15→20:42)
[2018-01-13] MEDS: BALSAM PERU/CASTOR OIL 60 GM TUBE TOP ×2 (11:15→20:42)
[2018-01-13] MEDS: HEPARIN 1000 UNITS/ML 10 ML INJ CATHETER (12:07)
[2018-01-13 14:21] LABS: HEPATITIS B SURFACE ANTIGEN NEGATIVE (NEGATIVE)
[2018-01-13] MEDS: INSULIN GLARGINE [LANtus] 3 ML PEN SC (20:48)
[2018-01-14] MEDS: INSULIN ASPART [NOVOLOG] 3 ML PEN SC ×4 (00:07→18:00)
[2018-01-14 08:57] LABS: HEMATOCRIT 25.9 % (37.0-47.0)
[2018-01-14 08:57] LABS: HEMOGLOBIN 8.6 g/dl (12.0-16.0)
[2018-01-14] MEDS: NYSTATIN 30 GM POWDER BTL TOP ×2 (09:00→21:24)
[2018-01-14] MEDS: NYSTATIN 15 GM OINT TOP ×3 (09:00→21:24)
[2018-01-14] MEDS: ASCORBIC ACID 500 MG TAB GTB (09:00)
[2018-01-14] MEDS: RIFAMPIN 300 MG CAP GTB (09:00)
[2018-01-14] MEDS: SEVELAMER CARBONATE 2.4 GM PKT PO ×3 (09:00→21:23)
[2018-01-14] MEDS: LEVETIRACETAM (100 MG/ML) 5ML CUP GTB ×2 (09:00→21:24)
[2018-01-14] MEDS: SEVELAMER CARBONATE 0.8 GM PKT PO ×3 (09:00→21:23)
[2018-01-14] MEDS: AMLODIPINE 10 MG TAB GTB (09:00)
[2018-01-14] MEDS: MULTIVIT/CA CARB/B CMPLX/FA TAB GTB (09:00)
[2018-01-14] MEDS: RISPERIDONE 1 MG TAB GTB (09:00)
[2018-01-14] MEDS: BALSAM PERU/CASTOR OIL 60 GM TUBE TOP ×2 (09:00→21:24)
[2018-01-14] MEDS: FLUOCINONIDE 0.05% 15 GM CR TOP ×2 (09:00→21:24)
[2018-01-14 09:43] LABS: FREE T4 (FREE THYROXINE) 1.08 ng/dl (0.85-1.93)
[2018-01-14 09:57] LABS: THYROID STIMULATING HORMONE 0.844 MIU/L (0.465-4.680)
[2018-01-14] MEDS: LEVOTHYROXINE 125 MCG TAB GTB (10:09)
[2018-01-14] MEDS: HEPARIN 5,000 UNIT/0.5 ML VIAL SC ×2 (10:13→21:26)
[2018-01-14] MEDS: EPOETIN 10000 UNITS/1 ML INJ (ESRD) SC (17:19)
[2018-01-14] MEDS: INSULIN GLARGINE [LANtus] 3 ML PEN SC (21:28)
[2018-01-15] MEDS: LEVOTHYROXINE 125 MCG TAB GTB (06:29)
[2018-01-15] MEDS: INSULIN ASPART [NOVOLOG] 3 ML PEN SC ×4 (06:31→17:18)
[2018-01-15 09:13] LABS: ADD MAN DIFF? NO
[2018-01-15 09:16] LABS: ABNORMAL IP MESSAGE 1; BASOPHIL # 0.1 10^3/ul (0.0-0.1); BASOPHILS % 0.6 % (0.0-2.0); EOSINOPHILS # 0.4 10^3/ul (0.0-0.5); EOSINOPHILS % 4.6 % (0.0-7.0); HEMATOCRIT 26.5 % (37.0-47.0); HEMOGLOBIN 8.9 g/dl (12.0-16.0); LYMPHOCYTES % 24.1 % (15.0-51.0); MEAN CORPUSCULAR HEMOGLOBIN 33.5 pg (29.0-33.0); MEAN CORPUSCULAR HGB CONC 33.6 g/dl (32.0-37.0); MEAN CORPUSCULAR VOLUME 99.6 fl (82.0-101.0); MEAN PLATELET VOLUME 10.9 fl (7.4-10.4); MONOCYTE # 0.7 10^3/ul (0.3-0.9); MONOCYTES % 8.3 % (0.0-11.0); NEUTROPHIL # 5.2 10^3/ul (1.6-7.5); NEUTROPHILS % 61.6 % (39.0-77.0); NUCLEATED RED BLOOD CELLS% 0.4 /100WBC (0.0-0.0); PLATELET COUNT 279 10^3/UL (140-415); RED BLOOD COUNT 2.66 10^6/ul (4.20-5.40); RED CELL DISTRIBUTION WIDTH 22.1 % (11.5-14.5)
[2018-01-15 09:16] LABS: WHITE BLOOD COUNT 8.4 10^3/ul (4.8-10.8)
[2018-01-15 09:42] LABS: ANION GAP 20 (8-16); BLOOD UREA NITROGEN 57 mg/dl (7-20); CALCIUM 9.8 mg/dl (8.4-10.2); CARBON DIOXIDE 29 mmol/L (21-31); CHLORIDE 97 mmol/L (97-110); CREATININE 3.38 mg/dl (0.44-1.00); GLUCOSE 108 mg/dl (70-220); MAGNESIUM 2.6 mg/dl (1.7-2.5); SODIUM 142 mmol/L (135-144)
[2018-01-15] MEDS: HEPARIN 1000 UNITS/ML 10 ML INJ CATHETER (11:48)
[2018-01-15] MEDS: LEVETIRACETAM (100 MG/ML) 5ML CUP GTB ×2 (12:56→21:29)
[2018-01-15] MEDS: MULTIVIT/CA CARB/B CMPLX/FA TAB GTB (12:57)
[2018-01-15] MEDS: AMLODIPINE 10 MG TAB GTB (12:57)
[2018-01-15] MEDS: BENAZEPRIL 40 MG TAB GTB (12:57)
[2018-01-15] MEDS: RIFAMPIN 300 MG CAP GTB (12:57)
[2018-01-15] MEDS: ASCORBIC ACID 500 MG TAB GTB (12:57)
[2018-01-15] MEDS: BALSAM PERU/CASTOR OIL 60 GM TUBE TOP ×2 (12:58→21:30)
[2018-01-15] MEDS: NYSTATIN 15 GM OINT TOP ×3 (12:58→21:29)
[2018-01-15] MEDS: NYSTATIN 30 GM POWDER BTL TOP ×2 (12:58→21:29)
[2018-01-15] MEDS: RISPERIDONE 1 MG TAB GTB (12:58)
[2018-01-15] MEDS: FLUOCINONIDE 0.05% 15 GM CR TOP ×2 (12:59→21:29)
[2018-01-15] MEDS: HEPARIN 5,000 UNIT/0.5 ML VIAL SC ×2 (13:05→21:28)
[2018-01-15] MEDS: INSULIN GLARGINE [LANtus] 3 ML PEN SC (21:26)
[2018-01-16] MEDS: INSULIN ASPART [NOVOLOG] 3 ML PEN SC ×5 (00:38→21:44)
[2018-01-16] MEDS: LEVOTHYROXINE 125 MCG TAB GTB (05:59)
[2018-01-16 08:28] LABS: ADD MAN DIFF? NO
[2018-01-16 08:35] LABS: ABNORMAL IP MESSAGE 1; BASOPHIL # 0.1 10^3/ul (0.0-0.1); BASOPHILS % 0.7 % (0.0-2.0); EOSINOPHILS # 0.4 10^3/ul (0.0-0.5); EOSINOPHILS % 4.1 % (0.0-7.0); HEMATOCRIT 29.3 % (37.0-47.0); HEMOGLOBIN 9.5 g/dl (12.0-16.0); LYMPHOCYTES # 2.4 10^3/ul (0.8-2.9); MEAN CORPUSCULAR HEMOGLOBIN 32.9 pg (29.0-33.0); MEAN CORPUSCULAR HGB CONC 32.4 g/dl (32.0-37.0); MEAN CORPUSCULAR VOLUME 101.4 fl (82.0-101.0); MONOCYTES % 10.4 % (0.0-11.0); NEUTROPHIL # 5.7 10^3/ul (1.6-7.5); NEUTROPHILS % 59.2 % (39.0-77.0); NUCLEATED RED BLOOD CELLS% 0.3 /100WBC (0.0-0.0); PLATELET COUNT 292 10^3/UL (140-415); RED BLOOD COUNT 2.89 10^6/ul (4.20-5.40); RED CELL DISTRIBUTION WIDTH 22.8 % (11.5-14.5)
[2018-01-16 08:35] LABS: WHITE BLOOD COUNT 9.6 10^3/ul (4.8-10.8)
[2018-01-16 08:38] LABS: POSITIVE DIFF @See below
[2018-01-16] MEDS: LEVETIRACETAM (100 MG/ML) 5ML CUP GTB ×2 (08:46→21:39)
[2018-01-16] MEDS: ASCORBIC ACID 500 MG TAB GTB (08:46)
[2018-01-16] MEDS: RISPERIDONE 1 MG TAB GTB (08:46)
[2018-01-16] MEDS: MULTIVIT/CA CARB/B CMPLX/FA TAB GTB (08:47)
[2018-01-16] MEDS: AMLODIPINE 10 MG TAB GTB (08:47)
[2018-01-16] MEDS: RIFAMPIN 300 MG CAP GTB (08:48)
[2018-01-16] MEDS: BENAZEPRIL 40 MG TAB GTB (08:48)
[2018-01-16] MEDS: HEPARIN 5,000 UNIT/0.5 ML VIAL SC ×2 (08:49→21:45)
[2018-01-16] MEDS: FLUOCINONIDE 0.05% 15 GM CR TOP ×2 (08:50→21:42)
[2018-01-16] MEDS: BALSAM PERU/CASTOR OIL 60 GM TUBE TOP ×2 (08:51→21:42)
[2018-01-16] MEDS: NYSTATIN 30 GM POWDER BTL TOP ×2 (08:51→21:41)
[2018-01-16] MEDS: NYSTATIN 15 GM OINT TOP ×3 (08:53→21:43)
[2018-01-16 09:14] LABS: ANION GAP 22 (8-16); BLOOD UREA NITROGEN 45 mg/dl (7-20); CALCIUM 10.3 mg/dl (8.4-10.2); CARBON DIOXIDE 26 mmol/L (21-31); CHLORIDE 100 mmol/L (97-110); GLUCOSE 100 mg/dl (70-220); MAGNESIUM 2.7 mg/dl (1.7-2.5); PHOSPHORUS 2.6 mg/dl (2.5-4.9); POTASSIUM 4.2 mmol/L (3.5-5.1); SODIUM 144 mmol/L (135-144)
[2018-01-16] MEDS: EPOETIN 10000 UNITS/1 ML INJ (ESRD) SC (17:19)
[2018-01-16] MEDS: INSULIN GLARGINE [LANtus] 3 ML PEN SC (21:40)
[2018-01-17] MEDS: LEVOTHYROXINE 125 MCG TAB GTB (05:42)
[2018-01-17] MEDS: INSULIN ASPART [NOVOLOG] 3 ML PEN SC ×4 (05:45→23:57)
[2018-01-17] MEDS: MULTIVIT/CA CARB/B CMPLX/FA TAB GTB (09:32)
[2018-01-17] MEDS: ASCORBIC ACID 500 MG TAB GTB (09:33)
[2018-01-17] MEDS: AMLODIPINE 10 MG TAB GTB (09:35)
[2018-01-17] MEDS: RISPERIDONE 1 MG TAB GTB (09:38)
[2018-01-17] MEDS: BENAZEPRIL 40 MG TAB GTB (09:38)
[2018-01-17] MEDS: LEVETIRACETAM (100 MG/ML) 5ML CUP GTB ×2 (09:39→20:56)
[2018-01-17] MEDS: FLUOCINONIDE 0.05% 15 GM CR TOP ×2 (09:40→20:57)
[2018-01-17] MEDS: NYSTATIN 30 GM POWDER BTL TOP ×2 (09:40→20:57)
[2018-01-17] MEDS: BALSAM PERU/CASTOR OIL 60 GM TUBE TOP ×2 (09:40→20:57)
[2018-01-17] MEDS: HEPARIN 5,000 UNIT/0.5 ML VIAL SC ×2 (09:42→21:31)
[2018-01-17] MEDS: RIFAMPIN 300 MG CAP GTB (09:48)
[2018-01-17] MEDS: NYSTATIN 15 GM OINT TOP ×3 (12:26→20:57)
[2018-01-17] MEDS: ALBUMIN HUMAN 25% 100 ML IV (14:40)
[2018-01-17] MEDS: HEPARIN 1000 UNITS/ML 10 ML INJ CATHETER (17:40)
[2018-01-17] MEDS: INSULIN GLARGINE [LANtus] 3 ML PEN SC (21:31)
[2018-01-18] MEDS: LEVOTHYROXINE 125 MCG TAB GTB (06:19)
[2018-01-18] MEDS: INSULIN ASPART [NOVOLOG] 3 ML PEN SC ×4 (06:44→23:46)
[2018-01-18] MEDS: MULTIVIT/CA CARB/B CMPLX/FA TAB GTB (09:40)
[2018-01-18] MEDS: LEVETIRACETAM (100 MG/ML) 5ML CUP GTB ×2 (09:40→20:43)
[2018-01-18] MEDS: ASCORBIC ACID 500 MG TAB GTB (09:40)
[2018-01-18] MEDS: RIFAMPIN 300 MG CAP GTB (09:40)
[2018-01-18] MEDS: RISPERIDONE 1 MG TAB GTB (09:41)
[2018-01-18] MEDS: BENAZEPRIL 40 MG TAB GTB (09:41)
[2018-01-18] MEDS: AMLODIPINE 10 MG TAB GTB (09:41)
[2018-01-18] MEDS: NYSTATIN 30 GM POWDER BTL TOP ×2 (09:42→20:57)
[2018-01-18] MEDS: BALSAM PERU/CASTOR OIL 60 GM TUBE TOP ×2 (09:42→20:57)
[2018-01-18] MEDS: FLUOCINONIDE 0.05% 15 GM CR TOP ×2 (09:42→20:57)
[2018-01-18] MEDS: NYSTATIN 15 GM OINT TOP ×3 (09:42→20:57)
[2018-01-18] MEDS: HEPARIN 5,000 UNIT/0.5 ML VIAL SC ×2 (09:55→20:57)
[2018-01-18] MEDS: INSULIN GLARGINE [LANtus] 3 ML PEN SC (20:57)
[2018-01-19] MEDS: LEVOTHYROXINE 125 MCG TAB GTB (06:23)
[2018-01-19] MEDS: INSULIN ASPART [NOVOLOG] 3 ML PEN SC ×3 (06:24→17:25)
[2018-01-19] MEDS: LEVETIRACETAM (100 MG/ML) 5ML CUP GTB ×2 (08:32→20:30)
[2018-01-19] MEDS: MULTIVIT/CA CARB/B CMPLX/FA TAB GTB (08:32)
[2018-01-19] MEDS: RISPERIDONE 1 MG TAB GTB (08:34)
[2018-01-19] MEDS: AMLODIPINE 10 MG TAB GTB (08:34)
[2018-01-19] MEDS: BENAZEPRIL 40 MG TAB GTB (08:34)
[2018-01-19] MEDS: RIFAMPIN 300 MG CAP GTB (08:35)
[2018-01-19] MEDS: ASCORBIC ACID 500 MG TAB GTB (08:35)
[2018-01-19] MEDS: NYSTATIN 30 GM POWDER BTL TOP ×2 (08:36→20:30)
[2018-01-19] MEDS: HEPARIN 5,000 UNIT/0.5 ML VIAL SC ×2 (08:36→20:32)
[2018-01-19] MEDS: BALSAM PERU/CASTOR OIL 60 GM TUBE TOP ×2 (08:36→20:30)
[2018-01-19] MEDS: NYSTATIN 15 GM OINT TOP ×3 (08:36→20:31)
[2018-01-19] MEDS: FLUOCINONIDE 0.05% 15 GM CR TOP ×2 (08:36→20:30)
[2018-01-19] MEDS: EPOETIN 10000 UNITS/1 ML INJ (ESRD) SC (17:26)
[2018-01-19] MEDS: INSULIN GLARGINE [LANtus] 3 ML PEN SC (21:21)
[2018-01-20] MEDS: INSULIN ASPART [NOVOLOG] 3 ML PEN SC ×5 (00:25→23:54)
[2018-01-20] MEDS: LEVOTHYROXINE 125 MCG TAB GTB (06:08)
[2018-01-20] MEDS: RIFAMPIN 300 MG CAP GTB (08:25)
[2018-01-20] MEDS: ASCORBIC ACID 500 MG TAB GTB (08:25)
[2018-01-20] MEDS: MULTIVIT/CA CARB/B CMPLX/FA TAB GTB (08:25)
[2018-01-20] MEDS: RISPERIDONE 1 MG TAB GTB (08:26)
[2018-01-20] MEDS: BENAZEPRIL 40 MG TAB GTB (08:26)
[2018-01-20] MEDS: LEVETIRACETAM (100 MG/ML) 5ML CUP GTB ×2 (08:26→21:02)
[2018-01-20] MEDS: AMLODIPINE 10 MG TAB GTB (08:27)
[2018-01-20] MEDS: HEPARIN 5,000 UNIT/0.5 ML VIAL SC ×2 (08:41→21:09)
[2018-01-20] MEDS: NYSTATIN 15 GM OINT TOP ×3 (08:43→21:03)
[2018-01-20] MEDS: BALSAM PERU/CASTOR OIL 60 GM TUBE TOP ×2 (08:43→21:03)
[2018-01-20] MEDS: FLUOCINONIDE 0.05% 15 GM CR TOP ×2 (08:43→21:03)
[2018-01-20] MEDS: NYSTATIN 30 GM POWDER BTL TOP ×2 (08:43→21:03)
[2018-01-20 08:55] LABS: ADD MAN DIFF? NO
[2018-01-20 09:21] LABS: ANION GAP 25 (8-16); BLOOD UREA NITROGEN 91 mg/dl (7-20); CARBON DIOXIDE 27 mmol/L (21-31); CHLORIDE 93 mmol/L (97-110); CREATININE 5.32 mg/dl (0.44-1.00); GLUCOSE 127 mg/dl (70-220); MAGNESIUM 2.7 mg/dl (1.7-2.5); PHOSPHORUS 4.9 mg/dl (2.5-4.9); POTASSIUM 4.5 mmol/L (3.5-5.1); SODIUM 140 mmol/L (135-144)
[2018-01-20 09:56] LABS: WHITE BLOOD COUNT 8.3 10^3/ul (4.8-10.8)
[2018-01-20 09:56] LABS: ABNORMAL IP MESSAGE 1; BASOPHILS % 0.5 % (0.0-2.0); EOSINOPHILS # 0.4 10^3/ul (0.0-0.5); EOSINOPHILS % 4.5 % (0.0-7.0); HEMATOCRIT 30.4 % (37.0-47.0); HEMOGLOBIN 10.1 g/dl (12.0-16.0); LYMPHOCYTES # 1.6 10^3/ul (0.8-2.9); MEAN CORPUSCULAR HEMOGLOBIN 34.2 pg (29.0-33.0); MEAN CORPUSCULAR HGB CONC 33.2 g/dl (32.0-37.0); MEAN CORPUSCULAR VOLUME 103.1 fl (82.0-101.0); MEAN PLATELET VOLUME 11.7 fl (7.4-10.4); MONOCYTE # 0.8 10^3/ul (0.3-0.9); NEUTROPHIL # 5.4 10^3/ul (1.6-7.5); NEUTROPHILS % 65.6 % (39.0-77.0); NUCLEATED RED BLOOD CELLS% 0.2 /100WBC (0.0-0.0); PLATELET COUNT 276 10^3/UL (140-415); RED BLOOD COUNT 2.95 10^6/ul (4.20-5.40); RED CELL DISTRIBUTION WIDTH 22.9 % (11.5-14.5)
[2018-01-20 10:19] LABS: POSITIVE DIFF @See below
[2018-01-20] MEDS: HEPARIN 1000 UNITS/ML 10 ML INJ CATHETER (15:06)
[2018-01-20] MEDS: INSULIN GLARGINE [LANtus] 3 ML PEN SC (20:55)
[2018-01-21] MEDS: INSULIN ASPART [NOVOLOG] 3 ML PEN SC ×3 (06:00→17:35)
[2018-01-21] MEDS: LEVOTHYROXINE 125 MCG TAB GTB (06:41)
[2018-01-21] MEDS: BENAZEPRIL 40 MG TAB GTB (09:00)
[2018-01-21] MEDS: AMLODIPINE 10 MG TAB GTB (09:00)
[2018-01-21] MEDS: RISPERIDONE 1 MG TAB GTB (09:05)
[2018-01-21] MEDS: RIFAMPIN 300 MG CAP GTB (09:07)
[2018-01-21] MEDS: LEVETIRACETAM (100 MG/ML) 5ML CUP GTB ×2 (09:07→21:22)
[2018-01-21] MEDS: MULTIVIT/CA CARB/B CMPLX/FA TAB GTB (09:07)
[2018-01-21] MEDS: ASCORBIC ACID 500 MG TAB GTB (09:07)
[2018-01-21] MEDS: NYSTATIN 30 GM POWDER BTL TOP ×2 (09:08→21:21)
[2018-01-21] MEDS: HEPARIN 5,000 UNIT/0.5 ML VIAL SC ×2 (09:08→21:24)
[2018-01-21] MEDS: NYSTATIN 15 GM OINT TOP ×3 (09:09→21:21)
[2018-01-21] MEDS: BALSAM PERU/CASTOR OIL 60 GM TUBE TOP ×2 (09:09→21:21)
[2018-01-21] MEDS: FLUOCINONIDE 0.05% 15 GM CR TOP ×2 (09:10→21:21)
[2018-01-21 09:46] LABS: HEMATOCRIT 32.4 % (37.0-47.0)
[2018-01-21 09:46] LABS: HEMOGLOBIN 10.5 g/dl (12.0-16.0)
[2018-01-21] MEDS: VANCOMYCIN HCL 250 MG/5ML POSYG PO ×2 (15:39→17:41)
[2018-01-21] MEDS: EPOETIN 10000 UNITS/1 ML INJ (ESRD) SC (17:43)
[2018-01-21] MEDS: INSULIN GLARGINE [LANtus] 3 ML PEN SC (21:24)
[2018-01-22] MEDS: VANCOMYCIN HCL 250 MG/5ML POSYG PO ×5 (00:14→23:55)
[2018-01-22] MEDS: INSULIN ASPART [NOVOLOG] 3 ML PEN SC ×4 (00:27→17:05)
[2018-01-22] MEDS: LEVOTHYROXINE 125 MCG TAB GTB (06:10)
[2018-01-22] MEDS: LEVETIRACETAM (100 MG/ML) 5ML CUP GTB ×2 (09:01→21:55)
[2018-01-22] MEDS: AMLODIPINE 10 MG TAB GTB (09:02)
[2018-01-22] MEDS: MULTIVIT/CA CARB/B CMPLX/FA TAB GTB (09:02)
[2018-01-22] MEDS: ASCORBIC ACID 500 MG TAB GTB (09:02)
[2018-01-22] MEDS: BENAZEPRIL 40 MG TAB GTB (09:02)
[2018-01-22] MEDS: RISPERIDONE 1 MG TAB GTB (09:02)
[2018-01-22] MEDS: NYSTATIN 15 GM OINT TOP ×3 (09:03→21:57)
[2018-01-22] MEDS: NYSTATIN 30 GM POWDER BTL TOP ×2 (09:03→21:56)
[2018-01-22] MEDS: BALSAM PERU/CASTOR OIL 60 GM TUBE TOP ×2 (09:04→21:57)
[2018-01-22] MEDS: FLUOCINONIDE 0.05% 15 GM CR TOP ×2 (09:04→21:55)
[2018-01-22] MEDS: HEPARIN 5,000 UNIT/0.5 ML VIAL SC ×2 (09:06→22:30)
[2018-01-22] MEDS: HEPARIN 1000 UNITS/ML 10 ML INJ CATHETER (16:28)
[2018-01-22] MEDS: INSULIN GLARGINE [LANtus] 3 ML PEN SC (20:37)
[2018-01-23] MEDS: INSULIN ASPART [NOVOLOG] 3 ML PEN SC ×4 (00:31→17:45)
[2018-01-23] MEDS: VANCOMYCIN HCL 250 MG/5ML POSYG PO ×3 (05:41→17:28)
[2018-01-23] MEDS: ASCORBIC ACID 500 MG TAB GTB (08:42)
[2018-01-23] MEDS: LEVETIRACETAM (100 MG/ML) 5ML CUP GTB ×2 (08:42→20:34)
[2018-01-23] MEDS: MULTIVIT/CA CARB/B CMPLX/FA TAB GTB (08:42)
[2018-01-23] MEDS: LEVOTHYROXINE 125 MCG TAB GTB (08:42)
[2018-01-23] MEDS: RISPERIDONE 1 MG TAB GTB (08:42)
[2018-01-23] MEDS: NYSTATIN 30 GM POWDER BTL TOP (08:43)
[2018-01-23] MEDS: BALSAM PERU/CASTOR OIL 60 GM TUBE TOP (08:43)
[2018-01-23] MEDS: FLUOCINONIDE 0.05% 15 GM CR TOP (08:44)
[2018-01-23] MEDS: NYSTATIN 15 GM OINT TOP ×3 (08:44→21:00)
[2018-01-23] MEDS: HEPARIN 5,000 UNIT/0.5 ML VIAL SC ×2 (08:47→20:42)
[2018-01-23] MEDS: AMLODIPINE 10 MG TAB GTB (09:00)
[2018-01-23] MEDS: BENAZEPRIL 40 MG TAB GTB (09:00)
[2018-01-23] MEDS: EPOETIN 10000 UNITS/1 ML INJ (ESRD) SC (17:28)
[2018-01-23] MEDS: INSULIN GLARGINE [LANtus] 3 ML PEN SC (20:31)
[2018-01-24] MEDS: VANCOMYCIN HCL 250 MG/5ML POSYG PO ×5 (00:28→23:52)
[2018-01-24] MEDS: BALSAM PERU/CASTOR OIL 60 GM TUBE TOP ×3 (00:29→20:31)
[2018-01-24] MEDS: NYSTATIN 30 GM POWDER BTL TOP ×3 (00:29→20:31)
[2018-01-24] MEDS: FLUOCINONIDE 0.05% 15 GM CR TOP ×3 (00:29→20:31)
[2018-01-24] MEDS: INSULIN ASPART [NOVOLOG] 3 ML PEN SC ×4 (00:53→17:33)
[2018-01-24] MEDS: LEVOTHYROXINE 125 MCG TAB GTB (05:22)
[2018-01-24] MEDS: BENAZEPRIL 40 MG TAB GTB (09:00)
[2018-01-24] MEDS: AMLODIPINE 5 MG TAB GTB (09:00)
[2018-01-24] MEDS: RISPERIDONE 1 MG TAB GTB (09:19)
[2018-01-24] MEDS: MULTIVIT/CA CARB/B CMPLX/FA TAB GTB (09:19)
[2018-01-24] MEDS: LEVETIRACETAM (100 MG/ML) 5ML CUP GTB ×2 (09:19→20:31)
[2018-01-24] MEDS: ASCORBIC ACID 500 MG TAB GTB (09:19)
[2018-01-24] MEDS: NYSTATIN 15 GM OINT TOP ×3 (09:21→20:31)
[2018-01-24] MEDS: HEPARIN 5,000 UNIT/0.5 ML VIAL SC ×2 (09:38→20:49)
[2018-01-24] MEDS: ALBUMIN HUMAN 25% 100 ML IV (09:51)
[2018-01-24] MEDS: HEPARIN 1000 UNITS/ML 10 ML INJ CATHETER (12:45)
[2018-01-24] MEDS: INSULIN GLARGINE [LANtus] 3 ML PEN SC (20:50)
[2018-01-25] MEDS: INSULIN ASPART [NOVOLOG] 3 ML PEN SC ×4 (00:08→17:18)
[2018-01-25] MEDS: VANCOMYCIN HCL 250 MG/5ML POSYG PO ×3 (06:43→17:04)
[2018-01-25] MEDS: LEVOTHYROXINE 125 MCG TAB GTB (06:43)
[2018-01-25 08:36] LABS: ADD MAN DIFF? NO
[2018-01-25 08:38] LABS: WHITE BLOOD COUNT 11.3 10^3/ul (4.8-10.8)
[2018-01-25 08:38] LABS: BASOPHIL # 0.1 10^3/ul (0.0-0.1); BASOPHILS % 0.6 % (0.0-2.0); EOSINOPHILS # 0.2 10^3/ul (0.0-0.5); EOSINOPHILS % 1.8 % (0.0-7.0); HEMATOCRIT 34.4 % (37.0-47.0); HEMOGLOBIN 11.1 g/dl (12.0-16.0); LYMPHOCYTES # 2.4 10^3/ul (0.8-2.9); LYMPHOCYTES % 21.3 % (15.0-51.0); MEAN CORPUSCULAR HGB CONC 32.3 g/dl (32.0-37.0); MEAN CORPUSCULAR VOLUME 105.5 fl (82.0-101.0); MEAN PLATELET VOLUME 10.7 fl (7.4-10.4); MONOCYTE # 1.2 10^3/ul (0.3-0.9); MONOCYTES % 10.5 % (0.0-11.0); NEUTROPHIL # 7.4 10^3/ul (1.6-7.5); NEUTROPHILS % 65.3 % (39.0-77.0); PLATELET COUNT 291 10^3/UL (140-415); RED BLOOD COUNT 3.26 10^6/ul (4.20-5.40); RED CELL DISTRIBUTION WIDTH 21.5 % (11.5-14.5)
[2018-01-25] MEDS: BENAZEPRIL 40 MG TAB GTB (09:00)
[2018-01-25] MEDS: AMLODIPINE 5 MG TAB GTB (09:00)
[2018-01-25 09:03] LABS: ANION GAP 25 (8-16); BLOOD UREA NITROGEN 53 mg/dl (7-20); CARBON DIOXIDE 27 mmol/L (21-31); CHLORIDE 98 mmol/L (97-110); CREATININE 3.55 mg/dl (0.44-1.00); GLUCOSE 220 mg/dl (70-220); MAGNESIUM 2.4 mg/dl (1.7-2.5); POTASSIUM 4.1 mmol/L (3.5-5.1); SODIUM 146 mmol/L (135-144)
[2018-01-25] MEDS: BALSAM PERU/CASTOR OIL 60 GM TUBE TOP ×2 (09:51→20:43)
[2018-01-25] MEDS: NYSTATIN 15 GM OINT TOP ×3 (09:51→20:43)
[2018-01-25] MEDS: NYSTATIN 30 GM POWDER BTL TOP ×2 (09:52→20:43)
[2018-01-25] MEDS: FLUOCINONIDE 0.05% 15 GM CR TOP ×2 (09:52→20:43)
[2018-01-25] MEDS: MULTIVIT/CA CARB/B CMPLX/FA TAB GTB (09:53)
[2018-01-25] MEDS: ASCORBIC ACID 500 MG TAB GTB (09:53)
[2018-01-25] MEDS: RISPERIDONE 1 MG TAB GTB (09:53)
[2018-01-25] MEDS: LEVETIRACETAM (100 MG/ML) 5ML CUP GTB ×2 (09:53→20:43)
[2018-01-25] MEDS: HEPARIN 5,000 UNIT/0.5 ML VIAL SC ×2 (10:05→21:04)
[2018-01-25] MEDS: metroNIDAZOLE 250 MG TAB GTB ×2 (16:31→21:35)
[2018-01-25] MEDS: INSULIN GLARGINE [LANtus] 3 ML PEN SC (20:49)
[2018-01-26] MEDS: VANCOMYCIN HCL 250 MG/5ML POSYG PO ×5 (00:39→23:23)
[2018-01-26] MEDS: INSULIN ASPART [NOVOLOG] 3 ML PEN SC ×4 (00:45→17:48)
[2018-01-26] MEDS: ALBUTEROL/IPRATROPIUM (NEB) 3 ML AMP NEB (04:54)
[2018-01-26] MEDS: metroNIDAZOLE 250 MG TAB GTB ×3 (06:02→23:23)
[2018-01-26] MEDS: LEVOTHYROXINE 125 MCG TAB GTB (06:02)
[2018-01-26] MEDS: RISPERIDONE 1 MG TAB GTB (09:36)
[2018-01-26] MEDS: LEVETIRACETAM (100 MG/ML) 5ML CUP GTB ×2 (09:36→20:19)
[2018-01-26] MEDS: ASCORBIC ACID 500 MG TAB GTB (09:36)
[2018-01-26] MEDS: BENAZEPRIL 40 MG TAB GTB (09:38)
[2018-01-26] MEDS: MULTIVIT/CA CARB/B CMPLX/FA TAB GTB (09:38)
[2018-01-26] MEDS: AMLODIPINE 5 MG TAB GTB (09:38)
[2018-01-26] MEDS: HEPARIN 5,000 UNIT/0.5 ML VIAL SC ×2 (09:40→20:35)
[2018-01-26] MEDS: BALSAM PERU/CASTOR OIL 60 GM TUBE TOP ×2 (09:43→20:19)
[2018-01-26] MEDS: FLUOCINONIDE 0.05% 15 GM CR TOP ×2 (09:43→20:19)
[2018-01-26] MEDS: NYSTATIN 15 GM OINT TOP ×3 (09:44→20:19)
[2018-01-26] MEDS: NYSTATIN 30 GM POWDER BTL TOP ×2 (09:44→20:19)
[2018-01-26] MEDS: EPOETIN 4000 UNITS/1 ML INJ (ESRD) SC (16:26)
[2018-01-26] MEDS ORDERED: EPOETIN 10000 UNITS/1 ML INJ (ESRD) SC (17:00)
[2018-01-26] MEDS: INSULIN GLARGINE [LANtus] 3 ML PEN SC (20:27)
[2018-01-27] MEDS: INSULIN ASPART [NOVOLOG] 3 ML PEN SC ×4 (00:33→17:54)
[2018-01-27] MEDS: VANCOMYCIN HCL 250 MG/5ML POSYG PO ×3 (05:58→17:46)
[2018-01-27] MEDS: metroNIDAZOLE 250 MG TAB GTB ×3 (05:58→21:01)
[2018-01-27] MEDS: LEVOTHYROXINE 125 MCG TAB GTB (06:02)
[2018-01-27 06:44] LABS: ADD MAN DIFF? NO
[2018-01-27 06:46] LABS: WHITE BLOOD COUNT 9.5 10^3/ul (4.8-10.8)
[2018-01-27 06:46] LABS: BASOPHIL # 0.1 10^3/ul (0.0-0.1); BASOPHILS % 0.6 % (0.0-2.0); EOSINOPHILS # 0.5 10^3/ul (0.0-0.5); EOSINOPHILS % 5.6 % (0.0-7.0); HEMATOCRIT 32.6 % (37.0-47.0); HEMOGLOBIN 10.6 g/dl (12.0-16.0); LYMPHOCYTES # 2.5 10^3/ul (0.8-2.9); LYMPHOCYTES % 26.1 % (15.0-51.0); MEAN CORPUSCULAR HEMOGLOBIN 33.3 pg (29.0-33.0); MEAN CORPUSCULAR HGB CONC 32.5 g/dl (32.0-37.0); MEAN CORPUSCULAR VOLUME 102.5 fl (82.0-101.0); MEAN PLATELET VOLUME 11.6 fl (7.4-10.4); MONOCYTE # 0.9 10^3/ul (0.3-0.9); MONOCYTES % 9.5 % (0.0-11.0); NEUTROPHIL # 5.5 10^3/ul (1.6-7.5); NEUTROPHILS % 57.7 % (39.0-77.0); PLATELET COUNT 284 10^3/UL (140-415); RED BLOOD COUNT 3.18 10^6/ul (4.20-5.40); RED CELL DISTRIBUTION WIDTH 20.9 % (11.5-14.5)
[2018-01-27 07:08] LABS: ANION GAP 29 (8-16); BLOOD UREA NITROGEN 109 mg/dl (7-20); CARBON DIOXIDE 22 mmol/L (21-31); CHLORIDE 97 mmol/L (97-110); CREATININE 6.33 mg/dl (0.44-1.00); GLUCOSE 150 mg/dl (70-220); MAGNESIUM 2.6 mg/dl (1.7-2.5); PHOSPHORUS 6.2 mg/dl (2.5-4.9); POTASSIUM 4.3 mmol/L (3.5-5.1); SODIUM 144 mmol/L (135-144)
[2018-01-27] MEDS: ASCORBIC ACID 500 MG TAB GTB (09:34)
[2018-01-27] MEDS: RISPERIDONE 1 MG TAB GTB (09:36)
[2018-01-27] MEDS: LEVETIRACETAM (100 MG/ML) 5ML CUP GTB ×2 (09:36→20:52)
[2018-01-27] MEDS: AMLODIPINE 2.5 MG TAB GTB (09:36)
[2018-01-27] MEDS: MULTIVIT/CA CARB/B CMPLX/FA TAB GTB (09:36)
[2018-01-27] MEDS: BENAZEPRIL 40 MG TAB GTB (09:37)
[2018-01-27] MEDS: HEPARIN 5,000 UNIT/0.5 ML VIAL SC ×2 (09:45→21:04)
[2018-01-27] MEDS: BALSAM PERU/CASTOR OIL 60 GM TUBE TOP ×2 (09:46→20:52)
[2018-01-27] MEDS: FLUOCINONIDE 0.05% 15 GM CR TOP ×2 (09:46→20:53)
[2018-01-27] MEDS: NYSTATIN 15 GM OINT TOP ×3 (09:46→20:53)
[2018-01-27] MEDS: NYSTATIN 30 GM POWDER BTL TOP ×2 (09:46→20:52)
[2018-01-27] MEDS: HEPARIN 1000 UNITS/ML 10 ML INJ CATHETER (14:30)
[2018-01-27] MEDS: ALBUTEROL/IPRATROPIUM (NEB) 3 ML AMP NEB (20:29)
[2018-01-27] MEDS: INSULIN GLARGINE [LANtus] 3 ML PEN SC (21:03)
[2018-01-28] MEDS: VANCOMYCIN HCL 250 MG/5ML POSYG PO ×4 (00:27→19:11)
[2018-01-28] MEDS: INSULIN ASPART [NOVOLOG] 3 ML PEN SC ×4 (00:31→17:42)
[2018-01-28] MEDS: ALBUTEROL/IPRATROPIUM (NEB) 3 ML AMP NEB (05:16)
[2018-01-28] MEDS: metroNIDAZOLE 250 MG TAB GTB ×3 (05:44→21:01)
[2018-01-28] MEDS: LEVOTHYROXINE 125 MCG TAB GTB (07:31)
[2018-01-28] MEDS: MULTIVIT/CA CARB/B CMPLX/FA TAB GTB (08:39)
[2018-01-28] MEDS: LEVETIRACETAM (100 MG/ML) 5ML CUP GTB ×2 (08:39→21:00)
[2018-01-28] MEDS: BALSAM PERU/CASTOR OIL 60 GM TUBE TOP ×2 (08:40→21:01)
[2018-01-28] MEDS: ASCORBIC ACID 500 MG TAB GTB (08:40)
[2018-01-28] MEDS: BENAZEPRIL 40 MG TAB GTB (08:40)
[2018-01-28] MEDS: RISPERIDONE 1 MG TAB GTB (08:40)
[2018-01-28] MEDS: AMLODIPINE 2.5 MG TAB GTB (08:40)
[2018-01-28] MEDS: FLUOCINONIDE 0.05% 15 GM CR TOP ×2 (08:41→21:01)
[2018-01-28] MEDS: NYSTATIN 30 GM POWDER BTL TOP ×2 (08:41→21:01)
[2018-01-28] MEDS: NYSTATIN 15 GM OINT TOP ×3 (08:41→21:01)
[2018-01-28] MEDS: HEPARIN 5,000 UNIT/0.5 ML VIAL SC ×2 (08:54→21:10)
[2018-01-28 09:25] LABS: HEMOGLOBIN 11.4 g/dl (12.0-16.0)
[2018-01-28 09:25] LABS: HEMATOCRIT 35.3 % (37.0-47.0)
[2018-01-28] MEDS: EPOETIN 4000 UNITS/1 ML INJ (ESRD) SC (17:35)
[2018-01-28] MEDS: INSULIN GLARGINE [LANtus] 3 ML PEN SC (21:09)
[2018-01-29] MEDS: ALBUTEROL/IPRATROPIUM (NEB) 3 ML AMP NEB ×2 (02:07→21:58)
[2018-01-29] MEDS: VANCOMYCIN HCL 250 MG/5ML POSYG PO ×4 (06:33→17:41)
[2018-01-29] MEDS: LEVOTHYROXINE 125 MCG TAB GTB (06:33)
[2018-01-29] MEDS: metroNIDAZOLE 250 MG TAB GTB ×3 (06:34→22:40)
[2018-01-29] MEDS: INSULIN ASPART [NOVOLOG] 3 ML PEN SC ×4 (06:39→17:46)
[2018-01-29] MEDS: AMLODIPINE 2.5 MG TAB GTB (09:00)
[2018-01-29] MEDS: BENAZEPRIL 40 MG TAB GTB (09:00)
[2018-01-29] MEDS: ALBUMIN HUMAN 25% 100 ML IV (11:14)
[2018-01-29] MEDS: HEPARIN 1000 UNITS/ML 10 ML INJ CATHETER (12:19)
[2018-01-29] MEDS: LEVETIRACETAM (100 MG/ML) 5ML CUP GTB ×2 (12:47→20:37)
[2018-01-29] MEDS: RISPERIDONE 1 MG TAB GTB (12:48)
[2018-01-29] MEDS: MULTIVIT/CA CARB/B CMPLX/FA TAB GTB (12:48)
[2018-01-29] MEDS: ASCORBIC ACID 500 MG TAB GTB (12:48)
[2018-01-29] MEDS: NYSTATIN 15 GM OINT TOP ×3 (12:49→22:41)
[2018-01-29] MEDS: BALSAM PERU/CASTOR OIL 60 GM TUBE TOP ×2 (12:49→20:39)
[2018-01-29] MEDS: NYSTATIN 30 GM POWDER BTL TOP ×2 (12:49→20:38)
[2018-01-29] MEDS: FLUOCINONIDE 0.05% 15 GM CR TOP ×2 (12:50→20:38)
[2018-01-29] MEDS: HEPARIN 5,000 UNIT/0.5 ML VIAL SC ×2 (12:55→20:49)
[2018-01-29] MEDS: INSULIN GLARGINE [LANtus] 3 ML PEN SC (20:52)
[2018-01-30] MEDS: VANCOMYCIN HCL 250 MG/5ML POSYG PO ×5 (00:05→23:43)
[2018-01-30] MEDS: INSULIN ASPART [NOVOLOG] 3 ML PEN SC ×5 (00:20→23:49)
[2018-01-30] MEDS: ALBUTEROL/IPRATROPIUM (NEB) 3 ML AMP NEB (05:23)
[2018-01-30 05:54] LABS: ADD MAN DIFF? NO
[2018-01-30 05:59] LABS: WHITE BLOOD COUNT 9.9 10^3/ul (4.8-10.8)
[2018-01-30 05:59] LABS: BASOPHIL # 0.1 10^3/ul (0.0-0.1); BASOPHILS % 1.1 % (0.0-2.0); EOSINOPHILS # 0.3 10^3/ul (0.0-0.5); EOSINOPHILS % 3.2 % (0.0-7.0); HEMATOCRIT 35.3 % (37.0-47.0); HEMOGLOBIN 11.5 g/dl (12.0-16.0); LYMPHOCYTES # 2.4 10^3/ul (0.8-2.9); LYMPHOCYTES % 24.3 % (15.0-51.0); MEAN CORPUSCULAR HEMOGLOBIN 34.3 pg (29.0-33.0); MEAN CORPUSCULAR HGB CONC 32.6 g/dl (32.0-37.0); MEAN CORPUSCULAR VOLUME 105.4 fl (82.0-101.0); MEAN PLATELET VOLUME 11.6 fl (7.4-10.4); MONOCYTE # 1.1 10^3/ul (0.3-0.9); MONOCYTES % 11.1 % (0.0-11.0); NEUTROPHIL # 5.9 10^3/ul (1.6-7.5); NEUTROPHILS % 59.6 % (39.0-77.0); PLATELET COUNT 268 10^3/UL (140-415); RED BLOOD COUNT 3.35 10^6/ul (4.20-5.40); RED CELL DISTRIBUTION WIDTH 19.8 % (11.5-14.5)
[2018-01-30 06:26] LABS: ANION GAP 25 (8-16); BLOOD UREA NITROGEN 56 mg/dl (7-20); CALCIUM 11.3 mg/dl (8.4-10.2); CARBON DIOXIDE 27 mmol/L (21-31); CHLORIDE 97 mmol/L (97-110); GLUCOSE 222 mg/dl (70-220); MAGNESIUM 2.4 mg/dl (1.7-2.5); PHOSPHORUS 5.4 mg/dl (2.5-4.9); POTASSIUM 4.2 mmol/L (3.5-5.1); SODIUM 145 mmol/L (135-144)
[2018-01-30] MEDS: metroNIDAZOLE 250 MG TAB GTB ×3 (06:31→22:22)
[2018-01-30] MEDS: LEVOTHYROXINE 125 MCG TAB GTB (06:31)
[2018-01-30] MEDS: ASCORBIC ACID 500 MG TAB GTB (08:11)
[2018-01-30] MEDS: MULTIVIT/CA CARB/B CMPLX/FA TAB GTB (08:11)
[2018-01-30] MEDS: RISPERIDONE 1 MG TAB GTB (08:11)
[2018-01-30] MEDS: LEVETIRACETAM (100 MG/ML) 5ML CUP GTB ×2 (08:11→20:21)
[2018-01-30] MEDS: BENAZEPRIL 40 MG TAB GTB (08:11)
[2018-01-30] MEDS: AMLODIPINE 2.5 MG TAB GTB (08:12)
[2018-01-30] MEDS: FLUOCINONIDE 0.05% 15 GM CR TOP ×2 (08:13→20:24)
[2018-01-30] MEDS: NYSTATIN 30 GM POWDER BTL TOP ×2 (08:13→20:23)
[2018-01-30] MEDS: HEPARIN 5,000 UNIT/0.5 ML VIAL SC ×2 (08:17→20:22)
[2018-01-30] MEDS: BALSAM PERU/CASTOR OIL 60 GM TUBE TOP ×2 (12:33→20:24)
[2018-01-30] MEDS: SEVELAMER CARBONATE 0.8 GM PKT PO ×2 (12:33→17:52)
[2018-01-30] MEDS: NYSTATIN 15 GM OINT TOP ×3 (14:49→20:23)
[2018-01-30] MEDS: INSULIN GLARGINE [LANtus] 3 ML PEN SC (20:23)
[2018-01-31] MEDS: metroNIDAZOLE 250 MG TAB GTB ×3 (06:42→21:46)
[2018-01-31] MEDS: VANCOMYCIN HCL 250 MG/5ML POSYG PO ×3 (06:43→17:37)
[2018-01-31] MEDS: INSULIN ASPART [NOVOLOG] 3 ML PEN SC ×3 (06:50→17:53)
[2018-01-31] MEDS: ALBUMIN HUMAN 25% 100 ML IV ×2 (08:49→09:55)
[2018-01-31] MEDS: AMLODIPINE 2.5 MG TAB GTB (09:00)
[2018-01-31] MEDS: BENAZEPRIL 40 MG TAB GTB (09:00)
[2018-01-31] MEDS: MULTIVIT/CA CARB/B CMPLX/FA TAB GTB (09:50)
[2018-01-31] MEDS: LEVETIRACETAM (100 MG/ML) 5ML CUP GTB ×2 (09:50→20:20)
[2018-01-31] MEDS: SEVELAMER CARBONATE 0.8 GM PKT PO ×3 (09:50→17:37)
[2018-01-31] MEDS: ASCORBIC ACID 500 MG TAB GTB (09:50)
[2018-01-31] MEDS: RISPERIDONE 1 MG TAB GTB (09:51)
[2018-01-31] MEDS: HEPARIN 5,000 UNIT/0.5 ML VIAL SC ×2 (09:55→20:22)
[2018-01-31] MEDS: BALSAM PERU/CASTOR OIL 60 GM TUBE TOP ×2 (09:57→20:20)
[2018-01-31] MEDS: NYSTATIN 15 GM OINT TOP ×3 (09:58→20:20)
[2018-01-31] MEDS: FLUOCINONIDE 0.05% 15 GM CR TOP ×2 (09:58→20:21)
[2018-01-31] MEDS: NYSTATIN 30 GM POWDER BTL TOP ×2 (09:58→20:21)
[2018-01-31] MEDS: LEVOTHYROXINE 125 MCG TAB GTB (10:04)
[2018-01-31] MEDS: HEPARIN 1000 UNITS/ML 10 ML INJ CATHETER (12:40)
[2018-01-31] MEDS: INSULIN GLARGINE [LANtus] 3 ML PEN SC (20:23)
[2018-02-01] MEDS: VANCOMYCIN HCL 250 MG/5ML POSYG PO ×4 (01:46→18:43)
[2018-02-01] MEDS: INSULIN ASPART [NOVOLOG] 3 ML PEN SC ×4 (01:47→18:51)
[2018-02-01] MEDS: metroNIDAZOLE 250 MG TAB GTB (05:50)
[2018-02-01] MEDS: LEVOTHYROXINE 125 MCG TAB GTB (06:01)
[2018-02-01] MEDS: AMLODIPINE 2.5 MG TAB GTB (08:48)
[2018-02-01] MEDS: BENAZEPRIL 40 MG TAB GTB (08:48)
[2018-02-01] MEDS: SEVELAMER CARBONATE 0.8 GM PKT PO ×3 (08:49→18:43)
[2018-02-01] MEDS: RISPERIDONE 1 MG TAB GTB (08:49)
[2018-02-01] MEDS: LEVETIRACETAM (100 MG/ML) 5ML CUP GTB ×2 (08:49→21:55)
[2018-02-01] MEDS: MULTIVIT/CA CARB/B CMPLX/FA TAB GTB (08:49)
[2018-02-01] MEDS: ASCORBIC ACID 500 MG TAB GTB (08:49)
[2018-02-01] MEDS: BALSAM PERU/CASTOR OIL 60 GM TUBE TOP ×2 (08:50→21:57)
[2018-02-01] MEDS: FLUOCINONIDE 0.05% 15 GM CR TOP ×2 (08:50→21:57)
[2018-02-01] MEDS: NYSTATIN 30 GM POWDER BTL TOP ×2 (08:50→21:00)
[2018-02-01] MEDS: NYSTATIN 15 GM OINT TOP ×3 (08:50→21:57)
[2018-02-01] MEDS: HEPARIN 5,000 UNIT/0.5 ML VIAL SC ×2 (08:53→21:56)
[2018-02-01] MEDS: INSULIN GLARGINE [LANtus] 3 ML PEN SC (21:55)
[2018-02-02] MEDS: INSULIN ASPART [NOVOLOG] 3 ML PEN SC ×5 (00:28→23:23)
[2018-02-02] MEDS: VANCOMYCIN HCL 250 MG/5ML POSYG PO ×5 (00:29→23:21)
[2018-02-02] MEDS: LEVOTHYROXINE 125 MCG TAB GTB (06:29)
[2018-02-02] MEDS: SEVELAMER CARBONATE 0.8 GM PKT PO ×3 (08:19→18:05)
[2018-02-02] MEDS: LEVETIRACETAM (100 MG/ML) 5ML CUP GTB ×2 (08:20→20:28)
[2018-02-02] MEDS: RISPERIDONE 1 MG TAB GTB (08:20)
[2018-02-02] MEDS: MULTIVIT/CA CARB/B CMPLX/FA TAB GTB (08:20)
[2018-02-02] MEDS: BENAZEPRIL 40 MG TAB GTB (08:20)
[2018-02-02] MEDS: ASCORBIC ACID 500 MG TAB GTB (08:20)
[2018-02-02] MEDS: AMLODIPINE 2.5 MG TAB GTB (08:21)
[2018-02-02] MEDS: BALSAM PERU/CASTOR OIL 60 GM TUBE TOP ×2 (08:21→20:29)
[2018-02-02] MEDS: FLUOCINONIDE 0.05% 15 GM CR TOP ×2 (08:21→20:30)
[2018-02-02] MEDS: NYSTATIN 30 GM POWDER BTL TOP ×2 (08:22→20:29)
[2018-02-02] MEDS: NYSTATIN 15 GM OINT TOP ×3 (08:22→20:29)
[2018-02-02] MEDS: HEPARIN 5,000 UNIT/0.5 ML VIAL SC ×2 (08:32→20:32)
[2018-02-02] MEDS: INSULIN GLARGINE [LANtus] 3 ML PEN SC (20:35)
[2018-02-03] MEDS: LEVOTHYROXINE 125 MCG TAB GTB (05:38)
[2018-02-03] MEDS: VANCOMYCIN HCL 250 MG/5ML POSYG PO ×3 (05:39→17:17)
[2018-02-03] MEDS: INSULIN ASPART [NOVOLOG] 3 ML PEN SC ×3 (05:41→17:55)
[2018-02-03] MEDS: ASCORBIC ACID 500 MG TAB GTB (08:12)
[2018-02-03] MEDS: AMLODIPINE 2.5 MG TAB GTB (08:14)
[2018-02-03] MEDS: LEVETIRACETAM (100 MG/ML) 5ML CUP GTB ×2 (08:16→20:38)
[2018-02-03] MEDS: HEPARIN 5,000 UNIT/0.5 ML VIAL SC ×2 (08:22→20:40)
[2018-02-03] MEDS: MULTIVIT/CA CARB/B CMPLX/FA TAB GTB (08:23)
[2018-02-03] MEDS: SEVELAMER CARBONATE 0.8 GM PKT PO ×3 (08:23→17:17)
[2018-02-03] MEDS: BALSAM PERU/CASTOR OIL 60 GM TUBE TOP ×2 (08:24→20:38)
[2018-02-03] MEDS: RISPERIDONE 1 MG TAB GTB (08:24)
[2018-02-03] MEDS: ARTIFICIAL TEARS 15 ML OPH BOTH EYES (08:25)
[2018-02-03] MEDS: FLUOCINONIDE 0.05% 15 GM CR TOP ×2 (08:25→20:38)
[2018-02-03] MEDS: NYSTATIN 30 GM POWDER BTL TOP ×2 (08:29→20:37)
[2018-02-03] MEDS: BENAZEPRIL 20 MG TAB GTB (08:33)
[2018-02-03] MEDS: NYSTATIN 15 GM OINT TOP ×3 (08:34→20:37)
[2018-02-03 08:41] LABS: ADD MAN DIFF? NO
[2018-02-03 09:40] LABS: WHITE BLOOD COUNT 17.1 10^3/ul (4.8-10.8)
[2018-02-03 09:40] LABS: BASOPHIL # 0.1 10^3/ul (0.0-0.1); BASOPHILS % 0.4 % (0.0-2.0); EOSINOPHILS # 0.2 10^3/ul (0.0-0.5); EOSINOPHILS % 1.2 % (0.0-7.0); HEMATOCRIT 36.9 % (37.0-47.0); HEMOGLOBIN 12.1 g/dl (12.0-16.0); LYMPHOCYTES # 2.4 10^3/ul (0.8-2.9); LYMPHOCYTES % 14.1 % (15.0-51.0); MEAN CORPUSCULAR HEMOGLOBIN 33.5 pg (29.0-33.0); MEAN CORPUSCULAR HGB CONC 32.8 g/dl (32.0-37.0); MEAN CORPUSCULAR VOLUME 102.2 fl (82.0-101.0); MEAN PLATELET VOLUME 12.5 fl (7.4-10.4); MONOCYTE # 1.3 10^3/ul (0.3-0.9); MONOCYTES % 7.7 % (0.0-11.0); PLATELET COUNT 274 10^3/UL (140-415); RED BLOOD COUNT 3.61 10^6/ul (4.20-5.40); RED CELL DISTRIBUTION WIDTH 18.4 % (11.5-14.5)
[2018-02-03 10:10] LABS: ANION GAP 33 (8-16); CALCIUM 11.6 mg/dl (8.4-10.2); CARBON DIOXIDE 21 mmol/L (21-31); CHLORIDE 91 mmol/L (97-110); CREATININE 6.27 mg/dl (0.44-1.00); GLUCOSE 150 mg/dl (70-220); PHOSPHORUS 7.9 mg/dl (2.5-4.9); POTASSIUM 5.1 mmol/L (3.5-5.1); SODIUM 140 mmol/L (135-144)
[2018-02-03 10:21] LABS: BLOOD UREA NITROGEN 125 mg/dl (7-20)
[2018-02-03] MEDS: HEPARIN 1000 UNITS/ML 10 ML INJ CATHETER (17:16)
[2018-02-03] MEDS: INSULIN GLARGINE [LANtus] 3 ML PEN SC (20:40)
[2018-02-04] MEDS: VANCOMYCIN HCL 250 MG/5ML POSYG PO ×4 (00:52→17:52)
[2018-02-04] MEDS: INSULIN ASPART [NOVOLOG] 3 ML PEN SC ×4 (00:55→17:59)
[2018-02-04] MEDS: BENAZEPRIL 20 MG TAB GTB (09:00)
[2018-02-04] MEDS: NYSTATIN 15 GM OINT TOP ×2 (09:00→12:33)
[2018-02-04] MEDS: ASCORBIC ACID 500 MG TAB GTB (09:44)
[2018-02-04] MEDS: LEVOTHYROXINE 125 MCG TAB GTB (09:45)
[2018-02-04] MEDS: LEVETIRACETAM (100 MG/ML) 5ML CUP GTB ×2 (09:45→22:06)
[2018-02-04] MEDS: MULTIVIT/CA CARB/B CMPLX/FA TAB GTB (09:45)
[2018-02-04] MEDS: RISPERIDONE 1 MG TAB GTB (09:45)
[2018-02-04] MEDS: HEPARIN 5,000 UNIT/0.5 ML VIAL SC ×2 (10:01→22:28)
[2018-02-04 11:20] LABS: ADD MAN DIFF? NO
[2018-02-04 11:26] LABS: ABNORMAL IP MESSAGE 1; BASOPHIL # 0.1 10^3/ul (0.0-0.1); BASOPHILS % 0.4 % (0.0-2.0); EOSINOPHILS # 0.2 10^3/ul (0.0-0.5); EOSINOPHILS % 1.7 % (0.0-7.0); HEMATOCRIT 34.5 % (37.0-47.0); HEMOGLOBIN 11.2 g/dl (12.0-16.0); LYMPHOCYTES # 2.2 10^3/ul (0.8-2.9); LYMPHOCYTES % 15.1 % (15.0-51.0); MEAN CORPUSCULAR HEMOGLOBIN 34.1 pg (29.0-33.0); MEAN CORPUSCULAR HGB CONC 32.5 g/dl (32.0-37.0); MEAN CORPUSCULAR VOLUME 105.2 fl (82.0-101.0); MEAN PLATELET VOLUME 12.1 fl (7.4-10.4); MONOCYTE # 1.6 10^3/ul (0.3-0.9); MONOCYTES % 10.9 % (0.0-11.0); NEUTROPHIL # 10.2 10^3/ul (1.6-7.5); NEUTROPHILS % 71.3 % (39.0-77.0); PLATELET COUNT 218 10^3/UL (140-415); RED BLOOD COUNT 3.28 10^6/ul (4.20-5.40); RED CELL DISTRIBUTION WIDTH 18.4 % (11.5-14.5)
[2018-02-04 11:26] LABS: WHITE BLOOD COUNT 14.2 10^3/ul (4.8-10.8)
[2018-02-04 11:28] LABS: POSITIVE DIFF @See below
[2018-02-04] MEDS: FLUOCINONIDE 0.05% 15 GM CR TOP ×2 (12:18→22:07)
[2018-02-04] MEDS: BALSAM PERU/CASTOR OIL 60 GM TUBE TOP ×2 (12:19→22:06)
[2018-02-04] MEDS: NYSTATIN 30 GM POWDER BTL TOP ×2 (12:19→22:06)
[2018-02-04] MEDS: SEVELAMER CARBONATE 0.8 GM PKT PO ×2 (12:20→17:52)
[2018-02-04] MEDS: INSULIN GLARGINE [LANtus] 3 ML PEN SC (22:28)
[2018-02-05] MEDS: VANCOMYCIN HCL 250 MG/5ML POSYG PO ×4 (00:33→17:43)
[2018-02-05] MEDS: INSULIN ASPART [NOVOLOG] 3 ML PEN SC ×4 (00:52→17:47)
[2018-02-05] MEDS: NYSTATIN 15 GM OINT TOP ×4 (03:40→22:01)
[2018-02-05] MEDS: LEVOTHYROXINE 125 MCG TAB GTB (06:14)
[2018-02-05] MEDS: MULTIVIT/CA CARB/B CMPLX/FA TAB GTB (09:04)
[2018-02-05] MEDS: RISPERIDONE 1 MG TAB GTB (09:04)
[2018-02-05] MEDS: ASCORBIC ACID 500 MG TAB GTB (09:04)
[2018-02-05] MEDS: LEVETIRACETAM (100 MG/ML) 5ML CUP GTB ×2 (09:05→22:01)
[2018-02-05] MEDS: BENAZEPRIL 20 MG TAB GTB (09:05)
[2018-02-05] MEDS: SEVELAMER CARBONATE 0.8 GM PKT PO ×3 (09:06→17:43)
[2018-02-05] MEDS: BALSAM PERU/CASTOR OIL 60 GM TUBE TOP ×2 (09:07→22:01)
[2018-02-05] MEDS: FLUOCINONIDE 0.05% 15 GM CR TOP ×2 (09:07→22:02)
[2018-02-05] MEDS: NYSTATIN 30 GM POWDER BTL TOP ×2 (09:07→22:02)
[2018-02-05] MEDS: HEPARIN 5,000 UNIT/0.5 ML VIAL SC ×2 (09:23→22:11)
[2018-02-05 09:28] LABS: ADD MAN DIFF? NO
[2018-02-05 09:30] LABS: WHITE BLOOD COUNT 13.5 10^3/ul (4.8-10.8)
[2018-02-05 09:30] LABS: BASOPHILS % 0.2 % (0.0-2.0); EOSINOPHILS # 0.3 10^3/ul (0.0-0.5); EOSINOPHILS % 2.5 % (0.0-7.0); HEMATOCRIT 30.7 % (37.0-47.0); HEMOGLOBIN 10.3 g/dl (12.0-16.0); LYMPHOCYTES # 2.1 10^3/ul (0.8-2.9); LYMPHOCYTES % 15.5 % (15.0-51.0); MEAN CORPUSCULAR HEMOGLOBIN 34.6 pg (29.0-33.0); MEAN CORPUSCULAR HGB CONC 33.6 g/dl (32.0-37.0); MEAN PLATELET VOLUME 12.2 fl (7.4-10.4); MONOCYTE # 1.5 10^3/ul (0.3-0.9); MONOCYTES % 10.9 % (0.0-11.0); NEUTROPHIL # 9.5 10^3/ul (1.6-7.5); NEUTROPHILS % 70.6 % (39.0-77.0); PLATELET COUNT 193 10^3/UL (140-415); RED BLOOD COUNT 2.98 10^6/ul (4.20-5.40); RED CELL DISTRIBUTION WIDTH 18.2 % (11.5-14.5)
[2018-02-05 09:54] LABS: ANION GAP 25 (8-16); BLOOD UREA NITROGEN 95 mg/dl (7-20); CALCIUM 10.6 mg/dl (8.4-10.2); CARBON DIOXIDE 24 mmol/L (21-31); CHLORIDE 96 mmol/L (97-110); CREATININE 5.42 mg/dl (0.44-1.00); GLUCOSE 148 mg/dl (70-220); MAGNESIUM 2.8 mg/dl (1.7-2.5); PHOSPHORUS 5.8 mg/dl (2.5-4.9); POTASSIUM 5.1 mmol/L (3.5-5.1); SODIUM 140 mmol/L (135-144)
[2018-02-05] MEDS: HEPARIN 1000 UNITS/ML 10 ML INJ CATHETER (18:42)
[2018-02-05] MEDS: INSULIN GLARGINE [LANtus] 3 ML PEN SC (23:22)
[2018-02-06] MEDS: VANCOMYCIN HCL 250 MG/5ML POSYG PO ×4 (01:07→17:59)
[2018-02-06] MEDS: INSULIN ASPART [NOVOLOG] 3 ML PEN SC ×4 (05:58→18:00)
[2018-02-06 06:09] LABS: WHITE BLOOD COUNT 8.9 10^3/ul (4.8-10.8)
[2018-02-06 06:09] LABS: ADD MAN DIFF? NO; BASOPHIL # 0.1 10^3/ul (0.0-0.1); BASOPHILS % 0.8 % (0.0-2.0); EOSINOPHILS # 0.5 10^3/ul (0.0-0.5); EOSINOPHILS % 5.3 % (0.0-7.0); HEMATOCRIT 32.6 % (37.0-47.0); HEMOGLOBIN 10.6 g/dl (12.0-16.0); LYMPHOCYTES # 2.2 10^3/ul (0.8-2.9); LYMPHOCYTES % 24.4 % (15.0-51.0); MEAN CORPUSCULAR HEMOGLOBIN 33.5 pg (29.0-33.0); MEAN CORPUSCULAR HGB CONC 32.5 g/dl (32.0-37.0); MEAN CORPUSCULAR VOLUME 103.2 fl (82.0-101.0); MONOCYTE # 0.9 10^3/ul (0.3-0.9); MONOCYTES % 10.2 % (0.0-11.0); NEUTROPHIL # 5.2 10^3/ul (1.6-7.5); PLATELET COUNT 219 10^3/UL (140-415); RED BLOOD COUNT 3.16 10^6/ul (4.20-5.40); RED CELL DISTRIBUTION WIDTH 17.5 % (11.5-14.5)
[2018-02-06 06:36] LABS: ANION GAP 21 (8-16); BLOOD UREA NITROGEN 48 mg/dl (7-20); CALCIUM 10.3 mg/dl (8.4-10.2); CARBON DIOXIDE 29 mmol/L (21-31); CHLORIDE 97 mmol/L (97-110); CREATININE 3.21 mg/dl (0.44-1.00); GLUCOSE 72 mg/dl (70-220); MAGNESIUM 2.5 mg/dl (1.7-2.5); PHOSPHORUS 4.8 mg/dl (2.5-4.9); POTASSIUM 4.5 mmol/L (3.5-5.1); SODIUM 142 mmol/L (135-144)
[2018-02-06] MEDS: ASCORBIC ACID 500 MG TAB GTB (09:29)
[2018-02-06] MEDS: LEVOTHYROXINE 125 MCG TAB GTB (09:29)
[2018-02-06] MEDS: BENAZEPRIL 20 MG TAB GTB (09:30)
[2018-02-06] MEDS: MULTIVIT/CA CARB/B CMPLX/FA TAB GTB (09:30)
[2018-02-06] MEDS: LEVETIRACETAM (100 MG/ML) 5ML CUP GTB ×2 (09:30→22:52)
[2018-02-06] MEDS: SEVELAMER CARBONATE 0.8 GM PKT PO ×3 (09:30→17:59)
[2018-02-06] MEDS: NYSTATIN 15 GM OINT TOP ×3 (09:31→23:54)
[2018-02-06] MEDS: FLUOCINONIDE 0.05% 15 GM CR TOP ×2 (09:31→23:06)
[2018-02-06] MEDS: NYSTATIN 30 GM POWDER BTL TOP ×2 (09:31→23:07)
[2018-02-06] MEDS: BALSAM PERU/CASTOR OIL 60 GM TUBE TOP ×2 (09:31→23:08)
[2018-02-06] MEDS: RISPERIDONE 1 MG TAB GTB (09:31)
[2018-02-06] MEDS: HEPARIN 5,000 UNIT/0.5 ML VIAL SC ×2 (09:39→23:57)
[2018-02-06] MEDS: ALBUTEROL/IPRATROPIUM (NEB) 3 ML AMP NEB (21:36)
[2018-02-06] MEDS: INSULIN GLARGINE [LANtus] 3 ML PEN SC (23:26)
[2018-02-07] MEDS: VANCOMYCIN HCL 250 MG/5ML POSYG PO ×4 (00:08→17:44)
[2018-02-07] MEDS: ALBUTEROL/IPRATROPIUM (NEB) 3 ML AMP NEB ×2 (01:23→20:42)
[2018-02-07] MEDS: INSULIN ASPART [NOVOLOG] 3 ML PEN SC ×4 (06:00→17:43)
[2018-02-07] MEDS: LEVOTHYROXINE 125 MCG TAB GTB (06:31)
[2018-02-07] MEDS: SEVELAMER CARBONATE 0.8 GM PKT PO ×3 (07:51→17:44)
[2018-02-07] MEDS: BENAZEPRIL 20 MG TAB GTB (09:00)
[2018-02-07] MEDS: HEPARIN 1000 UNITS/ML 10 ML INJ CATHETER (11:32)
[2018-02-07] MEDS: NYSTATIN 15 GM OINT TOP ×3 (11:39→20:14)
[2018-02-07] MEDS: NYSTATIN 30 GM POWDER BTL TOP ×2 (11:40→20:14)
[2018-02-07] MEDS: BALSAM PERU/CASTOR OIL 60 GM TUBE TOP ×2 (11:40→20:15)
[2018-02-07] MEDS: FLUOCINONIDE 0.05% 15 GM CR TOP ×2 (11:40→21:00)
[2018-02-07] MEDS: LEVETIRACETAM (100 MG/ML) 5ML CUP GTB ×2 (11:52→20:14)
[2018-02-07] MEDS: MULTIVIT/CA CARB/B CMPLX/FA TAB GTB (11:53)
[2018-02-07] MEDS: ASCORBIC ACID 500 MG TAB GTB (11:54)
[2018-02-07] MEDS: RISPERIDONE 1 MG TAB GTB (11:54)
[2018-02-07] MEDS: HEPARIN 5,000 UNIT/0.5 ML VIAL SC ×2 (12:00→20:19)
[2018-02-07] MEDS ORDERED: VANCOMYCIN IV PER PHARMACY XX (14:00)
[2018-02-07] MEDS: VANCOMYCIN 1.5 GM in SOD CHLORIDE 0.9% 250 ML IVPB (16:45)
[2018-02-07] MEDS: INSULIN GLARGINE [LANtus] 3 ML PEN SC (20:18)
[2018-02-08] MEDS: INSULIN ASPART [NOVOLOG] 3 ML PEN SC ×4 (00:56→18:29)
[2018-02-08] MEDS: VANCOMYCIN HCL 250 MG/5ML POSYG PO ×4 (00:59→18:29)
[2018-02-08] MEDS: ALBUTEROL/IPRATROPIUM (NEB) 3 ML AMP NEB ×2 (01:46→20:50)
[2018-02-08] MEDS: LEVOTHYROXINE 125 MCG TAB GTB (06:15)
[2018-02-08] MEDS: NYSTATIN 30 GM POWDER BTL TOP ×2 (08:24→21:02)
[2018-02-08] MEDS: FLUOCINONIDE 0.05% 15 GM CR TOP ×2 (08:24→21:02)
[2018-02-08] MEDS: LEVETIRACETAM (100 MG/ML) 5ML CUP GTB ×2 (08:25→21:02)
[2018-02-08] MEDS: BALSAM PERU/CASTOR OIL 60 GM TUBE TOP ×2 (08:25→21:02)
[2018-02-08] MEDS: NYSTATIN 15 GM OINT TOP ×3 (08:25→21:02)
[2018-02-08] MEDS: SEVELAMER CARBONATE 0.8 GM PKT PO ×3 (08:26→18:23)
[2018-02-08] MEDS: MULTIVIT/CA CARB/B CMPLX/FA TAB GTB (08:26)
[2018-02-08] MEDS: RISPERIDONE 1 MG TAB GTB (08:26)
[2018-02-08] MEDS: BENAZEPRIL 20 MG TAB GTB (08:27)
[2018-02-08] MEDS: ASCORBIC ACID 500 MG TAB GTB (08:27)
[2018-02-08] MEDS: HEPARIN 5,000 UNIT/0.5 ML VIAL SC ×2 (08:32→21:04)
[2018-02-08] MEDS: INSULIN GLARGINE [LANtus] 3 ML PEN SC (21:06)
[2018-02-09] MEDS: VANCOMYCIN HCL 250 MG/5ML POSYG PO ×2 (00:04→05:38)
[2018-02-09] MEDS: ALBUTEROL/IPRATROPIUM (NEB) 3 ML AMP NEB (01:56)
[2018-02-09 05:28] LABS: ADD MAN DIFF? NO
[2018-02-09 05:32] LABS: WHITE BLOOD COUNT 9.4 10^3/ul (4.8-10.8)
[2018-02-09 05:32] LABS: BASOPHIL # 0.1 10^3/ul (0.0-0.1); BASOPHILS % 1.1 % (0.0-2.0); EOSINOPHILS # 0.7 10^3/ul (0.0-0.5); EOSINOPHILS % 7.6 % (0.0-7.0); HEMATOCRIT 33.5 % (37.0-47.0); HEMOGLOBIN 10.8 g/dl (12.0-16.0); LYMPHOCYTES # 2.2 10^3/ul (0.8-2.9); LYMPHOCYTES % 23.5 % (15.0-51.0); MEAN CORPUSCULAR HEMOGLOBIN 33.5 pg (29.0-33.0); MEAN CORPUSCULAR HGB CONC 32.2 g/dl (32.0-37.0); MEAN PLATELET VOLUME 11.4 fl (7.4-10.4); MONOCYTE # 0.8 10^3/ul (0.3-0.9); MONOCYTES % 8.8 % (0.0-11.0); NEUTROPHIL # 5.5 10^3/ul (1.6-7.5); NEUTROPHILS % 58.6 % (39.0-77.0); PLATELET COUNT 248 10^3/UL (140-415); RED BLOOD COUNT 3.22 10^6/ul (4.20-5.40); RED CELL DISTRIBUTION WIDTH 17.2 % (11.5-14.5)
[2018-02-09] MEDS: INSULIN ASPART [NOVOLOG] 3 ML PEN SC ×5 (05:39→23:14)
[2018-02-09 05:57] LABS: ANION GAP 23 (8-16); BLOOD UREA NITROGEN 74 mg/dl (7-20); CALCIUM 11.2 mg/dl (8.4-10.2); CARBON DIOXIDE 26 mmol/L (21-31); CHLORIDE 99 mmol/L (97-110); CREATININE 4.37 mg/dl (0.44-1.00); GLUCOSE 89 mg/dl (70-220); MAGNESIUM 2.9 mg/dl (1.7-2.5); POTASSIUM 4.9 mmol/L (3.5-5.1); SODIUM 143 mmol/L (135-144)
[2018-02-09 06:02] LABS: VANCOMYCIN,RANDOM 15.5 ug/ml
[2018-02-09] MEDS: LEVOTHYROXINE 125 MCG TAB GTB (06:15)
[2018-02-09] MEDS: BENAZEPRIL 20 MG TAB GTB (07:31)
[2018-02-09] MEDS: SEVELAMER CARBONATE 0.8 GM PKT PO ×3 (07:31→17:53)
[2018-02-09] MEDS: MULTIVIT/CA CARB/B CMPLX/FA TAB GTB ×2 (07:31→13:00)
[2018-02-09] MEDS: ASCORBIC ACID 500 MG TAB GTB ×2 (07:32→13:00)
[2018-02-09] MEDS: FLUOCINONIDE 0.05% 15 GM CR TOP ×2 (07:32→20:38)
[2018-02-09] MEDS: NYSTATIN 30 GM POWDER BTL TOP ×2 (07:32→20:39)
[2018-02-09] MEDS: BALSAM PERU/CASTOR OIL 60 GM TUBE TOP ×2 (07:32→20:38)
[2018-02-09] MEDS: NYSTATIN 15 GM OINT TOP ×3 (07:32→20:40)
[2018-02-09] MEDS: HEPARIN 1000 UNITS/ML 10 ML INJ CATHETER (12:32)
[2018-02-09] MEDS: LEVETIRACETAM (100 MG/ML) 5ML CUP GTB ×2 (12:59→20:37)
[2018-02-09] MEDS: RISPERIDONE 1 MG TAB GTB (13:00)
[2018-02-09] MEDS: HEPARIN 5,000 UNIT/0.5 ML VIAL SC ×2 (13:13→20:49)
[2018-02-09] MEDS: VANCOMYCIN 1 GM 250 ML IVPB (15:04)
[2018-02-09] MEDS: ACETAMINOPHEN 325 MG TAB GTB (20:37)
[2018-02-09] MEDS: ARTIFICIAL TEARS 15 ML OPH BOTH EYES (20:37)
[2018-02-09] MEDS: INSULIN GLARGINE [LANtus] 3 ML PEN SC (20:56)
[2018-02-10] MEDS: INSULIN ASPART [NOVOLOG] 3 ML PEN SC ×3 (05:29→18:00)
[2018-02-10] MEDS: LEVOTHYROXINE 125 MCG TAB GTB (06:46)
[2018-02-10] MEDS: RISPERIDONE 1 MG TAB GTB (08:55)
[2018-02-10] MEDS: SEVELAMER CARBONATE 0.8 GM PKT PO ×3 (08:55→18:38)
[2018-02-10] MEDS: ASCORBIC ACID 500 MG TAB GTB (08:55)
[2018-02-10] MEDS: BENAZEPRIL 20 MG TAB GTB (08:55)
[2018-02-10] MEDS: LEVETIRACETAM (100 MG/ML) 5ML CUP GTB ×2 (08:55→21:18)
[2018-02-10] MEDS: MULTIVIT/CA CARB/B CMPLX/FA TAB GTB (08:55)
[2018-02-10] MEDS: HEPARIN 5,000 UNIT/0.5 ML VIAL SC ×2 (09:19→21:26)
[2018-02-10] MEDS: NYSTATIN 30 GM POWDER BTL TOP ×2 (09:22→21:18)
[2018-02-10] MEDS: FLUOCINONIDE 0.05% 15 GM CR TOP ×2 (09:22→21:18)
[2018-02-10] MEDS: NYSTATIN 15 GM OINT TOP ×3 (09:22→21:18)
[2018-02-10] MEDS: BALSAM PERU/CASTOR OIL 60 GM TUBE TOP ×2 (09:22→21:27)
[2018-02-10] MEDS: INSULIN GLARGINE [LANtus] 3 ML PEN SC (21:00)
[2018-02-11] MEDS: INSULIN ASPART [NOVOLOG] 3 ML PEN SC ×4 (06:00→18:19)
[2018-02-11] MEDS: LEVOTHYROXINE 125 MCG TAB GTB (06:06)
[2018-02-11] MEDS: LEVETIRACETAM (100 MG/ML) 5ML CUP GTB ×2 (08:35→20:27)
[2018-02-11] MEDS: SEVELAMER CARBONATE 0.8 GM PKT PO ×3 (08:35→18:14)
[2018-02-11] MEDS: RISPERIDONE 1 MG TAB GTB (08:35)
[2018-02-11] MEDS: MULTIVIT/CA CARB/B CMPLX/FA TAB GTB (08:35)
[2018-02-11] MEDS: ASCORBIC ACID 500 MG TAB GTB (08:35)
[2018-02-11] MEDS: BENAZEPRIL 20 MG TAB GTB (08:37)
[2018-02-11] MEDS: FLUOCINONIDE 0.05% 15 GM CR TOP ×2 (08:38→20:25)
[2018-02-11] MEDS: NYSTATIN 30 GM POWDER BTL TOP ×2 (08:39→20:25)
[2018-02-11] MEDS: NYSTATIN 15 GM OINT TOP ×3 (08:39→20:26)
[2018-02-11] MEDS: BALSAM PERU/CASTOR OIL 60 GM TUBE TOP ×2 (08:40→20:26)
[2018-02-11] MEDS: HEPARIN 5,000 UNIT/0.5 ML VIAL SC ×2 (08:49→20:44)
[2018-02-11] MEDS: HEPARIN 1000 UNITS/ML 10 ML INJ CATHETER (12:10)
[2018-02-11] MEDS: INSULIN GLARGINE [LANtus] 3 ML PEN SC (20:40)
[2018-02-12] MEDS: INSULIN ASPART [NOVOLOG] 3 ML PEN SC ×4 (00:30→18:25)
[2018-02-12] MEDS: LEVOTHYROXINE 125 MCG TAB GTB (06:07)
[2018-02-12] MEDS: BENAZEPRIL 20 MG TAB GTB (09:00)
[2018-02-12] MEDS: RISPERIDONE 1 MG TAB GTB (09:35)
[2018-02-12] MEDS: ASCORBIC ACID 500 MG TAB GTB (09:35)
[2018-02-12] MEDS: MULTIVIT/CA CARB/B CMPLX/FA TAB GTB (09:35)
[2018-02-12] MEDS: LEVETIRACETAM (100 MG/ML) 5ML CUP GTB ×2 (09:35→20:54)
[2018-02-12] MEDS: SEVELAMER CARBONATE 0.8 GM PKT PO ×3 (09:37→18:09)
[2018-02-12] MEDS: BALSAM PERU/CASTOR OIL 60 GM TUBE TOP ×2 (09:38→20:54)
[2018-02-12] MEDS: FLUOCINONIDE 0.05% 15 GM CR TOP ×2 (09:38→20:54)
[2018-02-12] MEDS: NYSTATIN 15 GM OINT TOP ×3 (09:39→20:54)
[2018-02-12 09:55] LABS: HEPATITIS B SURFACE ANTIGEN NEGATIVE (NEGATIVE)
[2018-02-12] MEDS: HEPARIN 5,000 UNIT/0.5 ML VIAL SC ×2 (09:55→21:05)
[2018-02-12 10:13] LABS: HEPATITIS B SURFACE ANTIBODY NEGATIVE (NEGATIVE)
[2018-02-12] MEDS: NYSTATIN 30 GM POWDER BTL TOP ×2 (12:20→20:54)
[2018-02-12] MEDS: VANCOMYCIN HCL 250 MG/5ML POSYG PO ×2 (15:11→18:09)
[2018-02-12] MEDS: INSULIN GLARGINE [LANtus] 3 ML PEN SC (21:03)
[2018-02-13] MEDS: VANCOMYCIN HCL 250 MG/5ML POSYG PO ×4 (01:05→18:07)
[2018-02-13] MEDS: INSULIN ASPART [NOVOLOG] 3 ML PEN SC ×4 (01:11→18:00)
[2018-02-13] MEDS: LEVOTHYROXINE 125 MCG TAB GTB (06:31)
[2018-02-13] MEDS: LEVETIRACETAM (100 MG/ML) 5ML CUP GTB ×2 (09:22→21:12)
[2018-02-13] MEDS: MULTIVIT/CA CARB/B CMPLX/FA TAB GTB (09:22)
[2018-02-13] MEDS: RISPERIDONE 1 MG TAB GTB (09:22)
[2018-02-13] MEDS: ASCORBIC ACID 500 MG TAB GTB (09:22)
[2018-02-13] MEDS: SEVELAMER CARBONATE 0.8 GM PKT PO ×3 (09:23→18:07)
[2018-02-13] MEDS: HEPARIN 5,000 UNIT/0.5 ML VIAL SC ×2 (09:25→21:28)
[2018-02-13] MEDS: FLUOCINONIDE 0.05% 15 GM CR TOP ×2 (09:26→21:12)
[2018-02-13] MEDS: NYSTATIN 15 GM OINT TOP ×3 (09:27→21:12)
[2018-02-13] MEDS: BALSAM PERU/CASTOR OIL 60 GM TUBE TOP ×2 (09:27→21:12)
[2018-02-13] MEDS: NYSTATIN 30 GM POWDER BTL TOP ×2 (09:28→21:12)
[2018-02-13] MEDS: ALBUMIN HUMAN 25% 100 ML IV (10:38)
[2018-02-13 11:31] LABS: ADD MAN DIFF? NO
[2018-02-13 11:36] LABS: BASOPHIL # 0.1 10^3/ul (0.0-0.1); BASOPHILS % 0.8 % (0.0-2.0); EOSINOPHILS # 0.8 10^3/ul (0.0-0.5); EOSINOPHILS % 5.7 % (0.0-7.0); HEMOGLOBIN 11.4 g/dl (12.0-16.0); LYMPHOCYTES # 2.4 10^3/ul (0.8-2.9); MEAN CORPUSCULAR HEMOGLOBIN 33.9 pg (29.0-33.0); MEAN CORPUSCULAR HGB CONC 32.6 g/dl (32.0-37.0); MEAN CORPUSCULAR VOLUME 104.2 fl (82.0-101.0); MEAN PLATELET VOLUME 11.5 fl (7.4-10.4); MONOCYTE # 0.9 10^3/ul (0.3-0.9); MONOCYTES % 7.1 % (0.0-11.0); NEUTROPHIL # 8.9 10^3/ul (1.6-7.5); NEUTROPHILS % 67.7 % (39.0-77.0); PLATELET COUNT 279 10^3/UL (140-415); RED BLOOD COUNT 3.36 10^6/ul (4.20-5.40); RED CELL DISTRIBUTION WIDTH 17.4 % (11.5-14.5)
[2018-02-13 11:36] LABS: WHITE BLOOD COUNT 13.1 10^3/ul (4.8-10.8)
[2018-02-13 11:57] LABS: ANION GAP 20 (8-16); BLOOD UREA NITROGEN 20 mg/dl (7-20); CALCIUM 10.4 mg/dl (8.4-10.2); CARBON DIOXIDE 31 mmol/L (21-31); CHLORIDE 101 mmol/L (97-110); GLUCOSE 113 mg/dl (70-220); POTASSIUM 3.8 mmol/L (3.5-5.1); SODIUM 148 mmol/L (135-144)
[2018-02-13] MEDS: HEPARIN 1000 UNITS/ML 10 ML INJ CATHETER (12:16)
[2018-02-13] MEDS: VANCOMYCIN 1 GM 250 ML IVPB (16:12)
[2018-02-13] MEDS: INSULIN GLARGINE [LANtus] 3 ML PEN SC (21:27)
[2018-02-14] MEDS: VANCOMYCIN HCL 250 MG/5ML POSYG PO ×4 (00:52→18:01)
[2018-02-14] MEDS: INSULIN ASPART [NOVOLOG] 3 ML PEN SC ×4 (00:57→18:00)
[2018-02-14] MEDS: ALBUTEROL/IPRATROPIUM (NEB) 3 ML AMP NEB (06:02)
[2018-02-14] MEDS: LEVOTHYROXINE 125 MCG TAB GTB (06:24)
[2018-02-14 06:48] LABS: ADD MAN DIFF? NO
[2018-02-14 06:55] LABS: WHITE BLOOD COUNT 18.3 10^3/ul (4.8-10.8)
[2018-02-14 06:55] LABS: BASOPHIL # 0.1 10^3/ul (0.0-0.1); BASOPHILS % 0.7 % (0.0-2.0); EOSINOPHILS # 0.6 10^3/ul (0.0-0.5); EOSINOPHILS % 3.3 % (0.0-7.0); HEMOGLOBIN 11.4 g/dl (12.0-16.0); LYMPHOCYTES # 2.8 10^3/ul (0.8-2.9); LYMPHOCYTES % 15.2 % (15.0-51.0); MEAN CORPUSCULAR HEMOGLOBIN 33.2 pg (29.0-33.0); MEAN CORPUSCULAR HGB CONC 31.7 g/dl (32.0-37.0); MEAN PLATELET VOLUME 11.5 fl (7.4-10.4); MONOCYTE # 1.4 10^3/ul (0.3-0.9); MONOCYTES % 7.8 % (0.0-11.0); NEUTROPHIL # 13.3 10^3/ul (1.6-7.5); NEUTROPHILS % 72.3 % (39.0-77.0); PLATELET COUNT 275 10^3/UL (140-415); RED BLOOD COUNT 3.43 10^6/ul (4.20-5.40); RED CELL DISTRIBUTION WIDTH 17.5 % (11.5-14.5)
[2018-02-14 07:47] LABS: ANION GAP 21 (8-16); BLOOD UREA NITROGEN 52 mg/dl (7-20); CALCIUM 11.2 mg/dl (8.4-10.2); CARBON DIOXIDE 27 mmol/L (21-31); CHLORIDE 100 mmol/L (97-110); CREATININE 3.14 mg/dl (0.44-1.00); GLUCOSE 130 mg/dl (70-220); MAGNESIUM 2.8 mg/dl (1.7-2.5); PHOSPHORUS 3.5 mg/dl (2.5-4.9); POTASSIUM 4.8 mmol/L (3.5-5.1); SODIUM 143 mmol/L (135-144)
[2018-02-14] MEDS: ASCORBIC ACID 500 MG TAB GTB (09:38)
[2018-02-14] MEDS: MULTIVIT/CA CARB/B CMPLX/FA TAB GTB (09:38)
[2018-02-14] MEDS: LEVETIRACETAM (100 MG/ML) 5ML CUP GTB ×2 (09:38→20:28)
[2018-02-14] MEDS: SEVELAMER CARBONATE 0.8 GM PKT PO ×3 (09:38→18:02)
[2018-02-14] MEDS: NYSTATIN 15 GM OINT TOP ×3 (09:39→20:26)
[2018-02-14] MEDS: FLUOCINONIDE 0.05% 15 GM CR TOP ×2 (09:39→20:26)
[2018-02-14] MEDS: RISPERIDONE 1 MG TAB GTB (09:39)
[2018-02-14] MEDS: BALSAM PERU/CASTOR OIL 60 GM TUBE TOP ×2 (09:39→20:27)
[2018-02-14] MEDS: NYSTATIN 30 GM POWDER BTL TOP ×2 (09:39→20:27)
[2018-02-14] MEDS: HEPARIN 5,000 UNIT/0.5 ML VIAL SC ×2 (09:46→20:38)
[2018-02-14] MEDS: PIPER-TAZO 2.25 GM (PMX) 50 ML IVPB ×2 (13:37→22:44)
[2018-02-14] MEDS: INSULIN GLARGINE [LANtus] 3 ML PEN SC (20:37)
[2018-02-15] MEDS: VANCOMYCIN HCL 250 MG/5ML POSYG PO ×4 (01:08→17:41)
[2018-02-15] MEDS: INSULIN ASPART [NOVOLOG] 3 ML PEN SC ×4 (01:10→17:51)
[2018-02-15] MEDS: ALBUTEROL/IPRATROPIUM (NEB) 3 ML AMP NEB (04:09)
[2018-02-15] MEDS: LEVOTHYROXINE 125 MCG TAB GTB (06:03)
[2018-02-15] MEDS: PIPER-TAZO 2.25 GM (PMX) 50 ML IVPB ×2 (06:03→13:32)
[2018-02-15 06:43] LABS: ADD MAN DIFF? NO
[2018-02-15 06:45] LABS: WHITE BLOOD COUNT 15.4 10^3/ul (4.8-10.8)
[2018-02-15 06:45] LABS: BASOPHIL # 0.1 10^3/ul (0.0-0.1); BASOPHILS % 0.6 % (0.0-2.0); EOSINOPHILS # 0.6 10^3/ul (0.0-0.5); EOSINOPHILS % 3.8 % (0.0-7.0); HEMATOCRIT 33.1 % (37.0-47.0); HEMOGLOBIN 10.7 g/dl (12.0-16.0); LYMPHOCYTES # 2.6 10^3/ul (0.8-2.9); LYMPHOCYTES % 16.7 % (15.0-51.0); MEAN CORPUSCULAR HEMOGLOBIN 33.5 pg (29.0-33.0); MEAN CORPUSCULAR HGB CONC 32.3 g/dl (32.0-37.0); MEAN CORPUSCULAR VOLUME 103.8 fl (82.0-101.0); MEAN PLATELET VOLUME 11.8 fl (7.4-10.4); MONOCYTE # 1.1 10^3/ul (0.3-0.9); MONOCYTES % 7.3 % (0.0-11.0); NEUTROPHIL # 10.9 10^3/ul (1.6-7.5); NEUTROPHILS % 70.8 % (39.0-77.0); PLATELET COUNT 249 10^3/UL (140-415); RED BLOOD COUNT 3.19 10^6/ul (4.20-5.40); RED CELL DISTRIBUTION WIDTH 17.4 % (11.5-14.5)
[2018-02-15 07:09] LABS: ANION GAP 25 (8-16); BLOOD UREA NITROGEN 82 mg/dl (7-20); CALCIUM 11.4 mg/dl (8.4-10.2); CARBON DIOXIDE 25 mmol/L (21-31); CHLORIDE 99 mmol/L (97-110); CREATININE 4.65 mg/dl (0.44-1.00); GLUCOSE 165 mg/dl (70-220); MAGNESIUM 2.9 mg/dl (1.7-2.5); PHOSPHORUS 4.2 mg/dl (2.5-4.9); POTASSIUM 4.8 mmol/L (3.5-5.1); SODIUM 144 mmol/L (135-144)
[2018-02-15] MEDS: LEVETIRACETAM (100 MG/ML) 5ML CUP GTB ×2 (09:37→21:38)
[2018-02-15] MEDS: RISPERIDONE 1 MG TAB GTB (09:37)
[2018-02-15] MEDS: ASCORBIC ACID 500 MG TAB GTB (09:37)
[2018-02-15] MEDS: MULTIVIT/CA CARB/B CMPLX/FA TAB GTB (09:37)
[2018-02-15] MEDS: SEVELAMER CARBONATE 0.8 GM PKT PO ×3 (09:37→17:41)
[2018-02-15] MEDS: FLUOCINONIDE 0.05% 15 GM CR TOP ×2 (09:38→21:37)
[2018-02-15] MEDS: NYSTATIN 15 GM OINT TOP ×3 (09:38→21:38)
[2018-02-15] MEDS: NYSTATIN 30 GM POWDER BTL TOP ×2 (09:38→21:36)
[2018-02-15] MEDS: BALSAM PERU/CASTOR OIL 60 GM TUBE TOP ×2 (10:01→21:37)
[2018-02-15] MEDS: HEPARIN 5,000 UNIT/0.5 ML VIAL SC ×2 (10:01→21:52)
[2018-02-15] MEDS: FOSFOMYCIN 3 GM PACKET PO (17:41)
[2018-02-15] MEDS: INSULIN GLARGINE [LANtus] 3 ML PEN SC (21:53)
[2018-02-16] MEDS: VANCOMYCIN HCL 250 MG/5ML POSYG PO ×4 (00:44→18:36)
[2018-02-16] MEDS: INSULIN ASPART [NOVOLOG] 3 ML PEN SC ×4 (00:49→17:02)
[2018-02-16] MEDS: LEVOTHYROXINE 125 MCG TAB GTB (06:01)
[2018-02-16 06:42] LABS: ADD MAN DIFF? NO
[2018-02-16 06:53] LABS: WHITE BLOOD COUNT 13.2 10^3/ul (4.8-10.8)
[2018-02-16 06:53] LABS: BASOPHIL # 0.1 10^3/ul (0.0-0.1); BASOPHILS % 0.6 % (0.0-2.0); EOSINOPHILS # 0.7 10^3/ul (0.0-0.5); EOSINOPHILS % 5.2 % (0.0-7.0); HEMATOCRIT 32.1 % (37.0-47.0); HEMOGLOBIN 10.4 g/dl (12.0-16.0); LYMPHOCYTES # 2.8 10^3/ul (0.8-2.9); LYMPHOCYTES % 21.5 % (15.0-51.0); MEAN CORPUSCULAR HEMOGLOBIN 33.5 pg (29.0-33.0); MEAN CORPUSCULAR HGB CONC 32.4 g/dl (32.0-37.0); MEAN CORPUSCULAR VOLUME 103.5 fl (82.0-101.0); MEAN PLATELET VOLUME 12.2 fl (7.4-10.4); MONOCYTE # 1.1 10^3/ul (0.3-0.9); MONOCYTES % 8.6 % (0.0-11.0); NEUTROPHIL # 8.4 10^3/ul (1.6-7.5); NEUTROPHILS % 63.4 % (39.0-77.0); PLATELET COUNT 246 10^3/UL (140-415); RED CELL DISTRIBUTION WIDTH 17.4 % (11.5-14.5)
[2018-02-16 07:20] LABS: ANION GAP 35 (8-16); BLOOD UREA NITROGEN 112 mg/dl (7-20); CALCIUM 11.5 mg/dl (8.4-10.2); CARBON DIOXIDE 21 mmol/L (21-31); CHLORIDE 98 mmol/L (97-110); CREATININE 5.78 mg/dl (0.44-1.00); GLUCOSE 105 mg/dl (70-220); MAGNESIUM 3.2 mg/dl (1.7-2.5); PHOSPHORUS 4.3 mg/dl (2.5-4.9); SODIUM 148 mmol/L (135-144)
[2018-02-16 07:27] LABS: POTASSIUM 5.5 mmol/L (3.5-5.1)
[2018-02-16] MEDS: SEVELAMER CARBONATE 0.8 GM PKT PO ×3 (07:55→17:03)
[2018-02-16] MEDS: HEPARIN 1000 UNITS/ML 10 ML INJ CATHETER (11:12)
[2018-02-16] MEDS: RISPERIDONE 1 MG TAB GTB (12:32)
[2018-02-16] MEDS: ASCORBIC ACID 500 MG TAB GTB (12:33)
[2018-02-16] MEDS: NYSTATIN 30 GM POWDER BTL TOP ×2 (12:34→21:00)
[2018-02-16] MEDS: LEVETIRACETAM (100 MG/ML) 5ML CUP GTB ×2 (12:35→21:00)
[2018-02-16] MEDS: NYSTATIN 15 GM OINT TOP ×3 (12:35→21:00)
[2018-02-16] MEDS: FLUOCINONIDE 0.05% 15 GM CR TOP ×2 (12:35→21:00)
[2018-02-16] MEDS: MULTIVIT/CA CARB/B CMPLX/FA TAB GTB (12:36)
[2018-02-16] MEDS: BALSAM PERU/CASTOR OIL 60 GM TUBE TOP ×2 (12:37→21:00)
[2018-02-16] MEDS: HEPARIN 5,000 UNIT/0.5 ML VIAL SC ×2 (12:51→21:56)
[2018-02-16] MEDS: FOSFOMYCIN 3 GM PACKET PO (19:00)
[2018-02-16] MEDS: INSULIN GLARGINE [LANtus] 3 ML PEN SC (20:00)
[2018-02-17] MEDS: VANCOMYCIN HCL 250 MG/5ML POSYG PO ×4 (00:44→17:10)
[2018-02-17] MEDS: EPOETIN 4000 UNITS/1 ML INJ (ESRD) SC (04:18)
[2018-02-17] MEDS: INSULIN ASPART [NOVOLOG] 3 ML PEN SC ×4 (06:00→17:06)
[2018-02-17] MEDS: DEXTROSE 50% 50 ML SYRINGE IV (06:08)
[2018-02-17] MEDS: LEVOTHYROXINE 125 MCG TAB GTB (06:38)
[2018-02-17 08:21] LABS: ADD MAN DIFF? NO
[2018-02-17 08:29] LABS: BASOPHIL # 0.1 10^3/ul (0.0-0.1); BASOPHILS % 0.9 % (0.0-2.0); EOSINOPHILS # 0.5 10^3/ul (0.0-0.5); EOSINOPHILS % 5.8 % (0.0-7.0); HEMOGLOBIN 10.2 g/dl (12.0-16.0); LYMPHOCYTES # 1.8 10^3/ul (0.8-2.9); LYMPHOCYTES % 22.9 % (15.0-51.0); MEAN CORPUSCULAR HEMOGLOBIN 33.4 pg (29.0-33.0); MEAN CORPUSCULAR HGB CONC 31.9 g/dl (32.0-37.0); MEAN CORPUSCULAR VOLUME 104.9 fl (82.0-101.0); MONOCYTE # 0.8 10^3/ul (0.3-0.9); MONOCYTES % 10.1 % (0.0-11.0); NEUTROPHIL # 4.7 10^3/ul (1.6-7.5); NEUTROPHILS % 59.7 % (39.0-77.0); PLATELET COUNT 232 10^3/UL (140-415); RED BLOOD COUNT 3.05 10^6/ul (4.20-5.40); RED CELL DISTRIBUTION WIDTH 17.3 % (11.5-14.5)
[2018-02-17 08:29] LABS: WHITE BLOOD COUNT 7.9 10^3/ul (4.8-10.8)
[2018-02-17] MEDS: MULTIVIT/CA CARB/B CMPLX/FA TAB GTB (08:37)
[2018-02-17] MEDS: RISPERIDONE 1 MG TAB GTB (08:37)
[2018-02-17] MEDS: ASCORBIC ACID 500 MG TAB GTB (08:37)
[2018-02-17] MEDS: LEVETIRACETAM (100 MG/ML) 5ML CUP GTB (08:37)
[2018-02-17] MEDS: SEVELAMER CARBONATE 0.8 GM PKT PO ×3 (08:38→17:10)
[2018-02-17] MEDS: NYSTATIN 15 GM OINT TOP ×2 (08:38→13:21)
[2018-02-17] MEDS: BALSAM PERU/CASTOR OIL 60 GM TUBE TOP (08:38)
[2018-02-17] MEDS: NYSTATIN 30 GM POWDER BTL TOP (08:39)
[2018-02-17] MEDS: HEPARIN 5,000 UNIT/0.5 ML VIAL SC (08:40)
[2018-02-17] MEDS: FLUOCINONIDE 0.05% 15 GM CR TOP (08:42)
[2018-02-17 08:45] LABS: ANION GAP 22 (8-16); BLOOD UREA NITROGEN 54 mg/dl (7-20); CALCIUM 10.8 mg/dl (8.4-10.2); CARBON DIOXIDE 27 mmol/L (21-31); CHLORIDE 98 mmol/L (97-110); CREATININE 3.37 mg/dl (0.44-1.00); GLUCOSE 116 mg/dl (70-220); MAGNESIUM 2.5 mg/dl (1.7-2.5); PHOSPHORUS 3.3 mg/dl (2.5-4.9); POTASSIUM 4.2 mmol/L (3.5-5.1); SODIUM 143 mmol/L (135-144)
[2018-02-17] MEDS ORDERED: INSULIN GLARGINE [LANtus] 3 ML PEN SC (20:00)
[2018-02-18 12:48] LABS: PROCALCITONIN 0.47 ng/mL (<0.10)
== END 2018-02-17 21:46 | DRG 870 ==
LOC: TEL 03:10 → E/R 00:26
PROC: 5A1955Z Respiratory Ventilation, Greater than 96 Consecutive Hours (ICD-10-PCS; principal; 2017-11-04 09:15)
PROC: 30233N1 Transfusion of Nonautologous Red Blood Cells into Peripheral Vein, Percutaneous Approach (ICD-10-PCS; 2017-11-04 09:15)
PROC: 0D20XUZ Change Feeding Device in Upper Intestinal Tract, External Approach (ICD-10-PCS; 2017-11-04 09:15)
PROC: 5A1D70Z Performance of Urinary Filtration, Intermittent, Less than 6 Hours Per Day (ICD-10-PCS; 2017-11-04 09:15)
DX: A41.02 Sepsis due to Methicillin resistant Staphylococcus aureus (principal); J96.21 Acute and chronic respiratory failure with hypoxia; J18.9 Pneumonia, unspecified organism; G92 Toxic encephalopathy; N18.6 End stage renal disease; J96.22 Acute and chronic respiratory failure with hypercapnia; N39.0 Urinary tract infection, site not specified; I13.11 Hypertensive heart and chronic kidney disease without heart failure, with stage 5 chronic kidney disease, or end stage renal disease; Z99.11 Dependence on respirator [ventilator] status; K94.22 Gastrostomy infection; L03.311 Cellulitis of abdominal wall; T82.898A Other specified complication of vascular prosthetic devices, implants and grafts, initial encounter; A04.71 Enterocolitis due to Clostridium difficile, recurrent; A04.72 Enterocolitis due to Clostridium difficile, not specified as recurrent; R65.20 Severe sepsis without septic shock; D64.9 Anemia, unspecified; K94.29 Other complications of gastrostomy; Z93.0 Tracheostomy status; E87.6 Hypokalemia; G40.909 Epilepsy, unspecified, not intractable, without status epilepticus; L89.152 Pressure ulcer of sacral region, stage 2; E03.9 Hypothyroidism, unspecified; B86 Scabies; R13.10 Dysphagia, unspecified; E87.70 Fluid overload, unspecified; N64.89 Other specified disorders of breast; B96.20 Unspecified Escherichia coli [E. coli] as the cause of diseases classified elsewhere; E11.649 Type 2 diabetes mellitus with hypoglycemia without coma; B96.1 Klebsiella pneumoniae [K. pneumoniae] as the cause of diseases classified elsewhere; Z16.12 Extended spectrum beta lactamase (ESBL) resistance; I49.3 Ventricular premature depolarization; R00.1 Bradycardia, unspecified
CPT/HCPCS: 36415; 36430; 36600; 71010; 71045; 76641; 80048; 80053; 80202; 81001; 82728; 82803; 82962; 83036; 83540; 83605; 83735; 83970; 84100; 84145; 84439; 84443; 84484; 85014; 85018; 85025; 85610; 85730; 86706; 86850; 86900; 86901; 86920; 87040; 87070; 87075; 87081; 87086; 87340; 89220; 90686; 90935; 93005; 93306; 93931; 94002; 94003; 94640; 96374; 96375; 99291-25